=== PATIENT | male | born 1940 | race Caucasian/White ===

== ENCOUNTER 2017-04-08 12:48 | Inpatient (IN) ==
[2017-04-08 14:21] LABS: Basophils % 0.9 %; Eosinophils # 0.2 K/mcL (0.0-0.6); Eosinophils % 9.6 %; Hematocrit 21.5 % (37.5-50.1); Immature Granulocytes % 0.9 % (0-4); Immature Platelets 4.6 % (1.1-6.1); Lymphocytes # 0.4 K/mcL (0.6-4.6); Lymphocytes % 16.2 %; Mean Corpuscular HGB Conc 32.6 g/dL (31.6-35.5); Mean Corpuscular Hemoglobin 32.4 pg (28.0-33.3); Mean Corpuscular Volume 99.5 fL (83.0-100.0); Mean Platelet Volume 11.2 fL (9.4-12.4); Monocytes # 0.3 K/mcL (0.0-1.3); Monocytes % 14.9 %; Neutrophils # 1.3 K/mcL (1.6-8.9); Red Blood Count 2.16 M/mcL (4.19-5.50); Red Cell Distribution Width 14.3 % (11.5-14.5); Segmented Neutrophils % 57.5 %
[2017-04-08 14:29] LABS: Calcium 7.5 mg/dL (8.6-10.8)
[2017-04-08 14:31] LABS: Platelet Count 31 K/mcL (140-400)
--- NOTE | 2017-04-08 15:29 | Emergency Department Note ---
Disposition Clinical Impression: Generalized weakness Anemia Qualifiers: Anemia type: due to chronic kidney disease Chronic kidney disease stage: on chronic dialysis Qualified Code(s): N18.6 - End stage renal disease Disposition: Admitted As Inpatient Condition: Fair Nausea/Vomiting/Diarrhea HPI - General Chief complaint: ED Nausea/Vomiting/Diarrhea Stated complaint: vomiting, general weakness Time Seen by Provider: 04/08/17 13:17 Source: patient, EMS Mode of arrival: EMS Limitations: no limitations Nursing Notes Reviewed: Yes Vital Signs Reviewed: Yes - History of Present Illness HPI Narrative: 76-year-old male with a history renal failure on peritoneal dialysis who comes in complaining of generalized weakness and nausea vomiting. Patient has generalized weakness not able to get up and walk at this point in time. Pt Subjective Complaint: nausea, vomiting Onset (ago): day(s) Description of emesis: food contents Associated Abdominal Pain: No - Related Data Home Medications Medication Instructions Recorded Confirmed Aspirin 81 mg PO DAILY 05/19/15 04/08/17 Calcium Acetate [Phoslo] 1,334 mg PO TID 05/19/15 04/08/17 Gabapentin [Neurontin] 300 mg PO HS 05/19/15 04/08/17 Magnesium Oxide [Magnesium] 400 mg PO DAILY 05/19/15 04/08/17 Simvastatin [Zocor] 10 mg PO HS 05/19/15 04/08/17 Tamsulosin [Flomax] 0.4 mg PO BID 05/19/15 04/08/17 Omeprazole [PriLOSEC] 40 mg PO DAILY 11/20/15 04/08/17 OxyCODONE Immed Rel [Roxicodone 5 5 mg PO Q6HR 11/20/15 04/08/17 MG] Pramipexole [Mirapex] 0.25 mg PO HS 11/20/15 04/08/17 Alendronate Sodium [Fosamax] 70 mg PO QWEEK 04/08/17 04/08/17 Carvedilol [Coreg] 6.25 mg PO BID 04/08/17 04/08/17 Cholecalciferol (D-3) [Vitamin D] 1,000 unit PO DAILY 04/08/17 04/08/17 Iron Polysaccharide Complex 150 mg PO DAILY 04/08/17 04/08/17 [Ferrex 150] Multivitamin [Multi-Day Vitamins] 1 each PO DAILY 04/08/17 04/08/17 Nitroglycerin [Nitrostat] 0.4 mg SL Q5M PRN 04/08/17 04/08/17 Previous Rx's Medication Instructions Recorded Albuterol Sulfate [Albuterol 2 puff IH Q4HR #2 hfa.aer.ad 11/23/15 Inhaler] Allergies Allergy/AdvReac Type Severity Reaction Status Date / Time linezolid [From Zyvox] Allergy Weakness Verified 04/08/17 13:05 trimethoprim [From Bactrim] Allergy Weakness Verified 04/08/17 13:05 All systems ED: reviewed and negative except as stated. Constitutional: Denies: fever, chills, weakness, weight change Eyes: Denies: eye pain, eye discharge, vision change ENT ED: Denies: ear pain, throat pain, dental pain, hearing loss, epistaxis, congestion, dysphagia Cardiovascular: Denies: chest pain, palpitations, dyspnea on exertion, edema, syncope Respiratory: Denies: cough, dyspnea, wheezes, hemoptysis, stridor Gastrointestinal: Denies: abdominal pain, nausea, vomiting, diarrhea, constipation, hematemesis, melena, hematochezia Genitourinary: Denies: urgency, dysuria, frequency, hematuria Musculoskeletal: Denies: back pain, neck pain, arthralgia, myalgia Integumentary: Denies: rash, abrasion, lesions Neurological: Reports: weakness (Generalized). Denies: headache, numbness, paresthesias, confusion, abnormal gait, vertigo Psychiatric: Denies: anxiety, depression, suicidal thoughts, homicidal thoughts , auditory hallucinations, visual hallucinations Endocrine: Denies: fatigue Hematological/Lymphatic: Denies: easy bleeding, easy bruising Allergic/Immunologic: Denies: facial swelling, urticaria Past Medical History - Past Medical History Medical history: Reports: arthritis, cancer, cirrhosis, CHF, diabetes, GERD, kidney stones, liver disease, renal disease, other Surgical history: Reports: angioplasty/stent, cholecystectomy, heart valve replacement (Bioprosthetic aortic vavle replacement in 2013), other (Skin cancer excision left hand 12/2014) Psychiatric history: Reports: anxiety, depression - Social History Smoking Status: Never smoker Smokeless Tobacco Status: No Alcohol use: Reports: none Drug use: Reports: none Physical Exam - General Limitations: no limitations General appearance: alert - Head Head exam: atraumatic, normocephalic, normal inspection - Eye Eye exam: Present: normal appearance, PERRL, EOMI - ENT ENT exam: normal exam, normal oropharynx, mucous membranes moist - Neck Neck exam: Present: normal inspection, full ROM, trachea midline - Chest Chest inspection: Present: normal inspection, symmetric chest wall rise - Respiratory Respiratory exam: Present: normal lung sounds bilaterally - Cardiovascular Cardiovascular exam: Present: regular rate, normal rhythm, normal heart sounds - Abdominal Exam Abdominal exam: Present: soft, Non-Tender. Absent: tenderness, distention, guarding, rebound, rigidity - Expanded Lower Extremity Exam Neurovascular/Tendon exam: Absent: motor deficit, sensory deficit, tendon deficit Gait: not tested/not observed - Back Exam Back exam: Present: normal inspection, full ROM. Absent: tenderness - Neurological Exam Neurological exam: Present: alert, oriented X3 - Psychiatric Psychiatric exam: Present: normal affect, normal mood - Skin Skin exam: Present: warm, dry, intact, normal color Course - Reevaluation(s) Reevaluation #1: 76-year-old with a history of renal failure who comes in with generalized weakness he's noted to have a hemoglobin of 7 which is low for him. We spoke to the software development specialist to we will admit possible blood transfusion. Vital signs on initial presentation state heart rate 157 however his EKG shows a heart rate of 79. Time: 15:51 - Consultations Consultation #1: I discussed Dr. Winn, admit will see in consult. Time: 15:31 Consultation #2: Discussed with anatoly Krishnamurthy. Time: 15:50 Vital Signs Temperature 98.3 F 04/08/17 13:06 Pulse Rate 157 04/08/17 13:06 Respiratory Rate 22 04/08/17 13:06 Blood Pressure 113/67 04/08/17 13:06 O2 Sat by Pulse Oximetry 97 04/08/17 13:06 Temperature 97.7 F 04/11/17 07:37 Pulse Rate 78 04/11/17 07:37 Respiratory Rate 16 04/11/17 07:37 Blood Pressure 116/68 04/11/17 07:37 O2 Sat by Pulse Oximetry 96 04/11/17 07:37 Oxygen Delivery Oxygen Delivery Room Air Nausea/Vomiting/Diarrhea - Lab Data Lab results reviewed: Yes I reviewed the patient's lab results. Result diagrams: 04/11/17 04:58 04/11/17 04:58 Lab Results 04/08/17 04/08/17 04/08/17 Range/Units 13:57 13:57 13:57 WBC 2.3 L (4.3-11.1) K/mcL RBC 2.16 L (4.19-5.50) M/mcL Hgb 7.0 L (12.9-16.9) g/dL Hct 21.5 L (37.5-50.1) % MCV 99.5 (83.0-100.0) fL MCH 32.4 (28.0-33.3) pg MCHC 32.6 (31.6-35.5) g/dL RDW 14.3 (11.5-14.5) % Plt Count 31 L (140-400) K/mcL MPV 11.2 (9.4-12.4) fL Immature Gran % 0.9 (0-4) % Seg Neutrophils % 57.5 % Lymphocytes % 16.2 % Monocytes % 14.9 % Eosinophils % 9.6 % Basophils % 0.9 % Neutrophils # 1.3 L (1.6-8.9) K/mcL Lymphocytes # 0.4 L (0.6-4.6) K/mcL Monocytes # 0.3 (0.0-1.3) K/mcL Eosinophils # 0.2 (0.0-0.6) K/mcL Basophils # 0.0 (0.0-0.2) K/mcL Immature Plt Fraction 4.6 (1.1-6.1) % Sodium 125 L (136-145) mEq/L Potassium 5.0 H (3.5-4.5) mEq/L Chloride 87 L (98-109) mEq/L Carbon Dioxide 28 (19-29) mEq/L BUN 70 H (8-26) mg/dL Creatinine 9.36 H (0.72-1.25) mg/dL Est GFR ( Amer) 7 L (> 60) Est GFR (Non-Af Amer) 6 L (> 60) BUN/Creatinine Ratio 7 (6-26) Glucose 283 H (70-99) mg/dL Est Mean Plasma Glucose mg/dl Hemoglobin A1c ( - 5.6) % Calculated Osmolality 291 (280-300) Calcium 7.5 L (8.6-10.8) mg/dL Troponin I 0.01 (0-0.03) ng/mL Urine Color (Yellow) Urine Clarity (Clear) Urine pH (5.0-8.0) pH Units Ur Specific [place] (1.010-1.025) Urine Protein (Neg-Trace) mg/dL Urine Glucose (UA) (Normal) mg/dL Urine Ketones (Negative) mg/dL Urine Blood (Negative) Urine Nitrite (Negative) Urine Bilirubin (Negative) Urine Urobilinogen (Normal) mg/dL Ur Leukocyte Esterase (Negative) Urine Microscopic RBC (0-3) per hpf Urine Microscopic WBC (0-3) per hpf Ur Squamous Epith Cells (None-Few) per lpf Urine Bacteria (None-Few) per hpf Hyaline Casts (None-Few) per lpf Ur Culture Indicated? (NO) 04/08/17 04/08/17 Range/Units 13:57 16:22 WBC (4.3-11.1) K/mcL RBC (4.19-5.50) M/mcL Hgb (12.9-16.9) g/dL Hct (37.5-50.1) % MCV (83.0-100.0) fL MCH (28.0-33.3) pg MCHC (31.6-35.5) g/dL RDW (11.5-14.5) % Plt Count (140-400) K/mcL MPV (9.4-12.4) fL Immature Gran % (0-4) % Seg Neutrophils % % Lymphocytes % % Monocytes % % Eosinophils % % Basophils % % Neutrophils # (1.6-8.9) K/mcL Lymphocytes # (0.6-4.6) K/mcL Monocytes # (0.0-1.3) K/mcL Eosinophils # (0.0-0.6) K/mcL Basophils # (0.0-0.2) K/mcL Immature Plt Fraction (1.1-6.1) % Sodium (136-145) mEq/L Potassium (3.5-4.5) mEq/L Chloride (98-109) mEq/L Carbon Dioxide (19-29) mEq/L BUN (8-26) mg/dL Creatinine (0.72-1.25) mg/dL Est GFR ( Amer) (> 60) Est GFR (Non-Af Amer) (> 60) BUN/Creatinine Ratio (6-26) Glucose (70-99) mg/dL Est Mean Plasma Glucose 137 mg/dl Hemoglobin A1c 6.4 H ( - 5.6) % Calculated Osmolality (280-300) Calcium (8.6-10.8) mg/dL Troponin I (0-0.03) ng/mL Urine Color Yellow (Yellow) Urine Clarity Slightly Hazy (Clear) Urine pH 5.0 (5.0-8.0) pH Units Ur Specific [place] > 1.030 H (1.010-1.025) Urine Protein Trace (Neg-Trace) mg/dL Urine Glucose (UA) 500 H (Normal) mg/dL Urine Ketones Negative (Negative) mg/dL Urine Blood Negative (Negative) Urine Nitrite Negative (Negative) Urine Bilirubin Small H (Negative) Urine Urobilinogen Normal (Normal) mg/dL Ur Leukocyte Esterase Trace H (Negative) Urine Microscopic RBC 5-15 H (0-3) per hpf Urine Microscopic WBC 5-15 H (0-3) per hpf Ur Squamous Epith Cells Moderate H (None-Few) per lpf Urine Bacteria None Seen (None-Few) per hpf Hyaline Casts None Seen (None-Few) per lpf Ur Culture Indicated? YES A (NO) - Radiology Data Radiology results reviewed: Yes I reviewed the patient's radiology results. Chest X-Ray 04/08/17 13:35 IMPRESSION: No acute cardiopulmonary process. D/ / 04/08/2017 14:51:58 Yazan Toscano MD / Maria Luz Mckeon Interpreting Provider: Yazan Toscano MD Head CT 04/08/17 13:35 IMPRESSION: No acute traumatic intracranial abnormality Underlying atrophy with periventricular and scattered frontal parietal white matter disease, likely due to small-vessel ischemic change. D/ / Serafin Shaikh MD / Serafin Shaikh MD Interpreting Provider: Serafin Shaikh MD - EKG Data EKG attestation: Yes I reviewed and interpreted this EKG. EKG shows normal: sinus rhythm Rate: normal Rhythm: NSR Interpretation: no acute changes NIH Stroke Scale - Level of Consciousness LOC: Alert - LOC Questions LOC Questions: Answers both correctly - LOC Commands LOC Commands: Performs both correctly - Best Gaze Best Gaze: Normal - Visual Visual: No visual loss - Facial Palsy Facial Palsy: Normal - Motor Arms Motor Arm-Left: No drift for 10 seconds Motor Arm-Right: No drift for 10 seconds - Motor Legs Motor Leg-Left: No drift for 5 seconds Motor Leg-Right: No drift for 5 seconds - Limb Ataxia Limb Ataxia: Normal, No Ataxia - Sensory Sensory: Normal - Best Language Best Language: No aphasia - Dysarthria Dysarthria: Normal - Extinction and Inattention Extinction and Inattention: Normal - NIHSS Total Score NIHSS Total Score: 0
[2017-04-08 16:36] LABS: Bilirubin,Urine Small (Negative); Blood,Urine Negative (Negative); Color,Urine Yellow (Yellow); Glucose,Urine (UA) 500 mg/dL (Normal); Ketones,Urine Negative (Negative); Leukocyte Esterase,Urine Trace (Negative); Nitrite,Urine Negative (Negative); Protein,Urine Trace mg/dL (Neg-Trace); Specific Gravity,Urine > 1.030 (1.010-1.025); Urobilinogen,Urine Normal (Normal)
[2017-04-08 16:39] LABS: Bacteria,Urine None Seen per hpf (None-Few); Hyaline Casts,Urine None Seen per lpf (None-Few); Squamous Epithelial Cell,Urine Moderate per lpf (None-Few)
[2017-04-08 16:40] LABS: Clarity,Urine Slightly Hazy (Clear)
[2017-04-08] MEDS ORDERED: Naloxone 0.4 MG/ML INJ IVP PRN (16:50)
[2017-04-08] MEDS ORDERED: Ondansetron 4 MG/2 ML VIAL IVP PRN (16:50)
[2017-04-08] MEDS ORDERED: Acetaminophen 325 MG TABLET PO PRN (16:50)
[2017-04-08] MEDS ORDERED: Nitroglycerin 0.4 MG TAB.SUBL SL PRN (16:59)
--- NOTE | 2017-04-08 17:11 | Internal Med History&Physical ---
<Ronald Hinson T - Last Filed: 04/08/17 18:33> Date of Encounter: 04/08/17 Internal Medicine - H&P: HPI History of present illness: Mr. Daly is a 76 year old male Internal Medicine - H&P: Meds Aspirin 81 mg PO DAILY 05/19/15 [History] Calcium Acetate [Phoslo] 1,334 mg PO TID 05/19/15 [History] Gabapentin [Neurontin] 300 mg PO HS 05/19/15 [History] Magnesium Oxide [Magnesium] 400 mg PO DAILY 05/19/15 [History] Simvastatin [Zocor] 10 mg PO HS 05/19/15 [History] Tamsulosin [Flomax] 0.4 mg PO BID 05/19/15 [History] Omeprazole [PriLOSEC] 40 mg PO DAILY 11/20/15 [History] OxyCODONE Immed Rel [Roxicodone 5 MG] 5 mg PO Q6HR 11/20/15 [History] Pramipexole [Mirapex] 0.25 mg PO HS 11/20/15 [History] Albuterol Sulfate [Albuterol Inhaler] 2 puff IH Q4HR #2 hfa.aer.ad 11/23/15 [Rx] Alendronate Sodium [Fosamax] 70 mg PO QWEEK 04/08/17 [History] Carvedilol [Coreg] 6.25 mg PO BID 04/08/17 [History] Cholecalciferol (D-3) [Vitamin D] 1,000 unit PO DAILY 04/08/17 [History] Iron Polysaccharide Complex [Ferrex 150] 150 mg PO DAILY 04/08/17 [History] Multivitamin [Multi-Day Vitamins] 1 each PO DAILY 04/08/17 [History] Nitroglycerin [Nitrostat] 0.4 mg SL Q5M PRN 04/08/17 [History] Allergies linezolid [From Zyvox] Allergy (Verified 04/08/17 13:05) Weakness trimethoprim [From Bactrim] Allergy (Verified 04/08/17 13:05) Weakness All Systems PM: A 10-system review of systems was performed and is negative for pertinent findings except as documented above in the HPI. - Constitutional Vitals: Temp Pulse Resp BP Pulse Ox 98.3 F 157 18 105/49 97 04/08/17 13:06 04/08/17 13:06 04/08/17 17:39 04/08/17 17:39 04/08/17 13:06 Internal Med - H&P Results - Labs CBC & Chem 7: 04/08/17 13:57 04/08/17 13:57 - Attending Attestation I have independently seen and examined, at the bedside with family Plan of care is as discussed with KARINA Lynch, which is reflected in her documentation 76 M with ESRD on peritoneal dialysis, HCC, DM2, CHF, OA, Chronic anemia. Presented with nausea, vomiting, weakness Physical exam significant for a chronically ill-looking elderly man in no form of distress, AAOX3, no neurologic deficits, Abdomen is tense (currently has dialysate in-situ), bowel sounds present, extremities with no edema, CTAB, S1, s2 only, no m/g/r Labs and imaging reviewed: worsening anemia, Hb 7.0, Chronic leukopenia and thrombocytopenia at baseline, hyponatremia, hyperkalemia, Uremia, with BUN 70, elevated creatinine with Cr of 9.36 (baseline at 7), UA concentrated SG >1.030, dirty, Positive LE, WBC, RBC. Head CT and CXR unremarkable EKG : NSR, A/P: *Dehydration, Hyponatremia, Suspected UTI, Hyperkalemia, Acute on chronic anemia, chronic thrombocytopenia IVF-gentle hydration, adjust with dialysate, send urine and peritoneal fluid culture, Send FOBT, transfuse 1 RBC, Consult nephrology. IV Ceftriaxone for suspected UTI, follow cultures Rest of details as in KARINA lynch's documentation Patient is full code <Nelsy Lynch M - Last Filed: 04/08/17 22:37> Date of Encounter: 04/08/17 Time of Encounter: 17:06 Assessment and Plan (1) Generalized weakness Current visit: Yes Status: Acute Patient reporting weakness, fatigue increasing over last 2 weeks. He's had poor appetite during that time and the last 2 days reports some nausea and vomiting. Labs indicate he is dehydrated. On exam, dry mucous membranes, no edema. 500mL bolus, 0.9NS at 100mL/hr. (2) Anemia Current visit: Yes Status: Acute Patient with chronic anemia associated with ESRD, today's Hgb below his baseline at 7.0. Type and screen Transfuse 1u Packed RBCs check FOB Check CBC daily. Qualifiers: Anemia type: due to chronic kidney disease Chronic kidney disease stage: on chronic dialysis Qualified Code(s): N18.6 - End stage renal disease; D63.1 - Anemia in chronic kidney disease; Z99.2 - Dependence on renal dialysis (3) Hyponatremia Current visit: Yes Status: Acute Sodium of 125. Appears to be hypovolemic hyponatremia as patient appears dehydrated. 500mL bolus plus 0.9NS at 100mL/hr Nephrology consulted, spoke with Dr. Winn who will see patient. (4) Type 2 diabetes mellitus Current visit: Yes Status: Acute check Hgb A1c check blood sugars ACHS Sliding scale correction dose ACHS hypoglycemic protocol. Qualifiers: Diabetes mellitus complication status: with unspecified complications Diabetes mellitus terminal gauger supervisor insulin use: without terminal gauger supervisor use Qualified Code( s): E11.8 - Type 2 diabetes mellitus with unspecified complications (5) Hyperkalemia Current visit: Yes Status: Acute Potassium of 5.0 in patient with ESRD on peritoneal dialysis. Patient has diasylate dwelling and we are giving fluids for dehydration. Recheck chemistry daily. (6) ESRD (end stage renal disease) on dialysis Current visit: Yes Status: Chronic Patient with ESRD on Peritoneal dialysis, and reports he has diasylate dwelling now. BUN and creatinine are elevated above patient's baseline. We are giving fluids. Nephrology consulted, spoke with Dr. Winn who will see patient and manage dialysis. (7) Thrombocytopenia Current visit: Yes Status: Chronic (8) UTI (urinary tract infection) Current visit: Yes Status: Acute Urinalysis concerning for possible infection. Will treat with rocephin. Await culture results. Qualifiers: Urinary tract infection type: acute cystitis Hematuria presence: with hematuria Qualified Code(s): N30.01 - Acute cystitis with hematuria (9) DVT prophylaxis Current visit: Yes Status: Acute sequential compression devices. Plt count of 31, pharmacologic prophylaxis contraindicated. Internal Medicine - H&P: HPI Chief complaint: nausea, vomiting, weakness Admitted From: Emergency Dept Plans for Post Hospital Care: Home History of present illness: Mr. Daly is a 76 year old male with hypertension, hyperlipidemia, type 2 diabetes, cirrhosis and hepatocellular carcinoma in remission, chronic anemia, end-stage renal disease on peritoneal dialysis, coronary artery disease status post stent LAD presented to the emergency department today with complaints of nausea, vomiting, and weakness. Patient's daughter reports that approximately 2 weeks ago patient was given some Benadryl for an allergic reaction and had been drowsy and sleeping all the time ever since. She says he does not stay awake to eat, and she thinks he might be dehydrated. Patient had some nausea and vomiting the last couple of days. He is normally able to walk around, but he is so weak the last couple of days he has not been up and around. Patient reports some lightheadedness. He denies headache, chest pain, palpitations, shortness of breath. He reports a dry cough. He denies any abdominal pain, diarrhea, or constipation. He denies fever, chills or sweats. Evaluation in the emergency department revealed hyponatremia with sodium of 125, hyperkalemia with potassium of 5.0, BUN and creatinine elevated above patient's baseline with BUN of 70 and creatinine of 9.36. He was hyperglycemic with blood sugar of 283. Hemoglobin was 7.0 his previous baseline in the eights. Platelets were 31. EKG showed heart rate of 79 in sinus rhythm. Chest x-ray showed no acute cardiopulmonary process. Head CT showed no acute intracranial abnormality. On exam, patient is drowsy but arousable, oriented and responds appropriately to questions. He is pale, mucous membranes dry. Heart has regular rate and rhythm with systolic murmur. Lungs are clear bilaterally to auscultation. Abdomen is distended, nontender, with positive bowel sounds. Patient reports that he has diasylate dwelling currently. Past Med Surg Social Fam HX - Past Medical History Medical history: arthritis, cancer (HCC s/p chemo in remission), cirrhosis, CHF , coronary artery disease, diabetes, GERD, kidney stones, liver disease ( cirrhosis), renal disease, other Psychiatric history: anxiety, depression - Past Surgical History Surgical History: angioplasty/stent, cholecystectomy, heart valve replacement ( Bioprosthetic aortic vavle replacement in 2013), other (Skin cancer excision left hand 12/2014) - Social History Smoking Status: Never smoker Smokeless Tobacco Status: No Alcohol use: none Drug use: none - Family History Mother Adopted: No Living Status: Age at : 59 Cause of : CVA Hx Family Cardiac Disorders: Yes (hypertension) Hx Family Endocrine Disorder: Yes (diabetes) Father Living Status: Age at : 63 Cause of : [place] Hx Family Cardiac Disorders: Yes (hypertension, [place]) All Systems PM: A 10-system review of systems was performed and is negative for pertinent findings except as documented above in the HPI. - Constitutional Constitutional: fatigue, lethargy, weakness, no chills, no fever(s), no night sweats - EENT Eyes: no change in vision, no discharge, no pain, no photophobia Ears: no ear discharge, no ear pain, no tinnitus Nose, mouth and throat: no dysphagia, no nasal discharge, no neck pain, no sore throat - Cardiovascular Cardiovascular ROS IM: lightheadedness, no chest pain, no diaphoresis, no dyspnea, no palpitations, no syncope - Respiratory Respiratory: no cough, no dyspnea, no wheezing, no excessive phlegm production - Gastrointestinal Gastrointestinal: nausea, vomiting, no abdominal pain, no diarrhea, no hematemesis, no hematochezia, no melena - Musculoskeletal Musculoskeletal ROS IM: no numbness, no tingling - Integumentary Integumentary IM: no rash, no unusual bruising - Neurological Neurological ROS: no confusion, no convulsions, no focal weakness, no numbness, no tingling, no tremor(s) - Hematologic/Lymphatic Hematologic/Lymphatic: easy bruising - Constitutional Vitals: Temp Pulse Resp BP Pulse Ox 98.3 F 157 22 113/67 97 04/08/17 13:06 04/08/17 13:06 04/08/17 13:06 04/08/17 13:06 04/08/17 13:06 General appearance: Present: A&O X 3, pleasant, no acute distress - Head Head exam: Present: atraumatic, normocephalic - Eye Eye exam: Present: PERRL, conjuntiva pink, sclera anicteric Pupils: Present: PERRL Additional comments: pale conjunctiva - ENT ENT exam: Present: mucous membranes dry - Neck Neck exam general surgery: Present: supple, trachea midline. Absent: lymphadenopathy - Respiratory Respiratory exam: Present: CTAB. Absent: accessory muscle use, rales, rhonchi, wheezes - Cardiovascular Cardiovascular exam: Present: RRR, +S1, +S2, systolic murmur. Absent: diastolic murmur, gallop, rubs - GI/Abdominal GI/Abdominal exam: Present: distended, normal bowel sounds, no peritoneal signs. Absent: tenderness - Extremities Exam Extremities exam: Present: warm, radial pulses palpable and symetrical. Absent : calf tenderness, cyanotic, pedal edema - Neurological Exam Neurological exam: Present: CN II-XII intact, oriented X3, no focal deficits. Absent: facial droop, speech deficit - Skin Skin exam: Present: dry, intact Internal Med - H&P Results - Labs CBC & Chem 7: 04/08/17 13:57 04/08/17 13:57 Labs: All Lab Results (24 Hours) 04/08/17 04/08/17 04/08/17 Range/Units 13:57 13:57 13:57 WBC 2.3 L (4.3-11.1) K/mcL RBC 2.16 L (4.19-5.50) M/mcL Hgb 7.0 L (12.9-16.9) g/dL Hct 21.5 L (37.5-50.1) % MCV 99.5 (83.0-100.0) fL MCH 32.4 (28.0-33.3) pg MCHC 32.6 (31.6-35.5) g/dL RDW 14.3 (11.5-14.5) % Plt Count 31 L (140-400) K/mcL MPV 11.2 (9.4-12.4) fL Immature Gran % 0.9 (0-4) % Seg Neutrophils % 57.5 % Lymphocytes % 16.2 % Monocytes % 14.9 % Eosinophils % 9.6 % Basophils % 0.9 % Neutrophils # 1.3 L (1.6-8.9) K/mcL Lymphocytes # 0.4 L (0.6-4.6) K/mcL Monocytes # 0.3 (0.0-1.3) K/mcL Eosinophils # 0.2 (0.0-0.6) K/mcL Basophils # 0.0 (0.0-0.2) K/mcL Immature Plt Fraction 4.6 (1.1-6.1) % Sodium 125 L (136-145) mEq/L Potassium 5.0 H (3.5-4.5) mEq/L Chloride 87 L (98-109) mEq/L Carbon Dioxide 28 (19-29) mEq/L BUN 70 H (8-26) mg/dL Creatinine 9.36 H (0.72-1.25) mg/dL Est GFR ( Amer) 7 L (> 60) Est GFR (Non-Af Amer) 6 L (> 60) BUN/Creatinine Ratio 7 (6-26) Glucose 283 H (70-99) mg/dL Calculated Osmolality 291 (280-300) Calcium 7.5 L (8.6-10.8) mg/dL Troponin I 0.01 (0-0.03) ng/mL Urine Color (Yellow) Urine Clarity (Clear) Urine pH (5.0-8.0) pH Units Ur Specific [place] (1.010-1.025) Urine Protein (Neg-Trace) mg/dL Urine Glucose (UA) (Normal) mg/dL Urine Ketones (Negative) mg/dL Urine Blood (Negative) Urine Nitrite (Negative) Urine Bilirubin (Negative) Urine Urobilinogen (Normal) mg/dL Ur Leukocyte Esterase (Negative) Urine Microscopic RBC (0-3) per hpf Urine Microscopic WBC (0-3) per hpf Ur Squamous Epith Cells (None-Few) per lpf Urine Bacteria (None-Few) per hpf Hyaline Casts (None-Few) per lpf Ur Culture Indicated? (NO) 04/08/17 Range/Units 16:22 WBC (4.3-11.1) K/mcL RBC (4.19-5.50) M/mcL Hgb (12.9-16.9) g/dL Hct (37.5-50.1) % MCV (83.0-100.0) fL MCH (28.0-33.3) pg MCHC (31.6-35.5) g/dL RDW (11.5-14.5) % Plt Count (140-400) K/mcL MPV (9.4-12.4) fL Immature Gran % (0-4) % Seg Neutrophils % % Lymphocytes % % Monocytes % % Eosinophils % % Basophils % % Neutrophils # (1.6-8.9) K/mcL Lymphocytes # (0.6-4.6) K/mcL Monocytes # (0.0-1.3) K/mcL Eosinophils # (0.0-0.6) K/mcL Basophils # (0.0-0.2) K/mcL Immature Plt Fraction (1.1-6.1) % Sodium (136-145) mEq/L Potassium (3.5-4.5) mEq/L Chloride (98-109) mEq/L Carbon Dioxide (19-29) mEq/L BUN (8-26) mg/dL Creatinine (0.72-1.25) mg/dL Est GFR ( Amer) (> 60) Est GFR (Non-Af Amer) (> 60) BUN/Creatinine Ratio (6-26) Glucose (70-99) mg/dL Calculated Osmolality (280-300) Calcium (8.6-10.8) mg/dL Troponin I (0-0.03) ng/mL Urine Color Yellow (Yellow) Urine Clarity Slightly Hazy (Clear) Urine pH 5.0 (5.0-8.0) pH Units Ur Specific [place] > 1.030 H (1.010-1.025) Urine Protein Trace (Neg-Trace) mg/dL Urine Glucose (UA) 500 H (Normal) mg/dL Urine Ketones Negative (Negative) mg/dL Urine Blood Negative (Negative) Urine Nitrite Negative (Negative) Urine Bilirubin Small H (Negative) Urine Urobilinogen Normal (Normal) mg/dL Ur Leukocyte Esterase Trace H (Negative) Urine Microscopic RBC 5-15 H (0-3) per hpf Urine Microscopic WBC 5-15 H (0-3) per hpf Ur Squamous Epith Cells Moderate H (None-Few) per lpf Urine Bacteria None Seen (None-Few) per hpf Hyaline Casts None Seen (None-Few) per lpf Ur Culture Indicated? YES A (NO) - Diagnostic Studies Chest x-ray Additional comments: Chest X-Ray 04/08/17 13:35 IMPRESSION: No acute cardiopulmonary process. D/ / 04/08/2017 14:51:58 Yazan Toscano MD / Maria Luz Mckeon Interpreting Provider: Yazan Toscano MD CT scan - head Additional comments: Head CT 04/08/17 13:35 IMPRESSION: No acute traumatic intracranial abnormality Underlying atrophy with periventricular and scattered frontal parietal white matter disease, likely due to small-vessel ischemic change. D/ / Serafin Shaikh MD / Serafin Shaikh MD Interpreting Provider: Serafin Shaikh MD
[2017-04-08] MEDS ORDERED: Dextrose Gel 15 GM PO PRN ×2 (17:15)
[2017-04-08] MEDS ORDERED: D5% in Water 1,000 ML IVC PRN (17:15)
[2017-04-08] MEDS ORDERED: *HR* Dextrose 50 % in Water (Syg) 50 ML SYRINGE IVP PRN (17:15)
[2017-04-08 17:45] LABS: Hemoglobin A1C 6.4 %
[2017-04-08] MEDS ORDERED: 0.9 % Sodium Chloride 500 ML IVC ONE (17:54)
[2017-04-08] MEDS: 0.9 % Sodium Chloride 1,000 ML IVC SCH (19:59)
[2017-04-08] MEDS: Calcium Acetate 667 MG CAPSULE PO SCH (20:37)
[2017-04-08] MEDS: Gabapentin 300 MG CAPSULE PO SCH (20:38)
[2017-04-08] MEDS ORDERED: *HR* OxyCODONE Immed Rel 5 MG TABLET PO ONE (20:58)
[2017-04-08] MEDS ORDERED: Insulin LISPRO 300 UNITS/3 ML VIAL SQ SCH (21:00)
[2017-04-08] MEDS ORDERED: 0.9 % Sodium Chloride 250 ML ONE (23:23)
[2017-04-09] MEDS: Perit. Dialysis with Dex 1.5 % 2,000 ML PERITONEAL SCH ×4 (03:10→20:15)
[2017-04-09 05:21] LABS: RBC,Peritoneal Fluid < 0.002 M/mcL
[2017-04-09 05:30] LABS: Appearance of Peritoneal Fl CLEAR (Clear)
[2017-04-09 06:06] LABS: Basophils % 0.9 %; Eosinophils # 0.3 K/mcL (0.0-0.6); Eosinophils % 14.1 %; Hemoglobin 7.3 g/dL (12.9-16.9); Immature Granulocytes % 1.3 % (0-4); Immature Platelets 3.4 % (1.1-6.1); Lymphocytes # 0.5 K/mcL (0.6-4.6); Lymphocytes % 22.9 %; Mean Corpuscular HGB Conc 33.2 g/dL (31.6-35.5); Mean Corpuscular Hemoglobin 32.6 pg (28.0-33.3); Mean Corpuscular Volume 98.2 fL (83.0-100.0); Mean Platelet Volume 10.4 fL (9.4-12.4); Monocytes # 0.4 K/mcL (0.0-1.3); Monocytes % 15.9 %; Red Blood Count 2.24 M/mcL (4.19-5.50); Red Cell Distribution Width 14.9 % (11.5-14.5); Segmented Neutrophils % 44.9 %
[2017-04-09 06:09] LABS: Platelet Count 29 K/mcL (140-400)
[2017-04-09 06:22] LABS: Albumin 2.2 g/dL (3.5-5.0); Albumin/Globulin Ratio 0.6 (1.1-2.2); Bilirubin,Total 0.7 mg/dL (0.2-1.2); Calcium 7.1 mg/dL (8.6-10.8); Globulin 3.4 g/dL (2.4-3.5); Magnesium 3.5 mg/dL (1.6-2.6); Phosphorous 5.6 mg/dL (2.3-4.7); Potassium 4.8 mEq/L (3.5-4.5); Total Protein 5.6 g/dL (6.0-8.3)
[2017-04-09 06:54] LABS: Platelet Estimate Decreased (Normal)
[2017-04-09] MEDS ORDERED: Insulin LISPRO 300 UNITS/3 ML VIAL SQ SCH ×2 (07:30→21:00)
--- NOTE | 2017-04-09 08:17 | Nephrology Consult Note ---
Date of Encounter: 04/09/17 Time of Encounter: 08:00 Assessment and Plan (1) ESRD (end stage renal disease) Current Visit: No Status: Chronic PD fluid is pending but thus far the reported total nucleated cells (i.e., PMN) are less than 100, so I do not suspect Peritonitis. Continue PD for clearance, will use only 1.5% dextrose for now since he most likely volume depleted (contributing to the hyponatremia) Continue the IVF. His hx of liver disease may also be contributing to the hyponatremia. Liver disease/Ca can led to splenic sequestration and thrombocytopenia. However he is very pancytopenic. Consider consulting Hem/Onc. Hypoalbuminemia and hypocalcemia. Correcting for the hypoalbuminemia the hypocalcemia is minimal, but will add an ionized Ca for the AM. Possible UTI, so reasonable to cont Abx for now. Hyperphos: likely d/t his ESRD. Renal diet. Thank you for consulting the [facility] group. Will follow with you. (2) Hyponatremia Current Visit: Yes Status: Acute (3) Pancytopenia Current Visit: Yes Status: Acute (4) Hypoalbuminemia Current Visit: Yes Status: Acute (5) Hypocalcemia Current Visit: Yes Status: Acute (6) Hyperphosphatemia Current Visit: No Status: Acute (7) Secondary hyperparathyroidism of renal origin Current Visit: Yes Status: Chronic History of Present Illness - Reason for Consult Consult date: 04/08/17 end stage renal disease Requesting physician: Nelsy Lynch - Chief Complaint Generalized weakness; Hx of ESRD on PD - History of Present Illness Serafin Daly is a very pleasant 76 y/o WM with a pmh of ESRD on PD cycler, liver cirrhosis, chronic anemia and et al who presented with fatigue and poor oral intake. His daughter was present and provided most of the hx. His primary rn cardiovascular is Dr. Huntley. He was recently changed from just a nocturnal cycler but also to Extraneal and with daytime dwells. He was having increase itching and was recently placed on routine Benadryl as per the daughter by the dialysis unit about 1-2 weeks ago. Since then he has been sleeping more and more. Also associated with poor oral intake and some N/V but no abd pain, F/C or exudates from the PD catheter. No recent peritonitis. Yesterday afternoon I had recommended to the ER to have the PD fluid undergo analysis with Cell count and diff but it was not drawn till about midnight when I spoke to the floor RN. Past Med Surg Social Fam HX - Past Medical History Medical history: arthritis, cancer (HCC s/p chemo in remission), cirrhosis, CHF , coronary artery disease, diabetes, GERD, kidney stones, liver disease ( cirrhosis), renal disease, other Psychiatric history: anxiety, depression - Past Surgical History Surgical History: angioplasty/stent, cholecystectomy, heart valve replacement ( Bioprosthetic aortic vavle replacement in 2013), other (Skin cancer excision left hand 12/2014) - Social History Smoking Status: Never smoker Smokeless Tobacco Status: No Alcohol use: none Drug use: none - Family History Mother Adopted: No Living Status: Age at : 59 Cause of : CVA Hx Family Cardiac Disorders: Yes (hypertension) Hx Family Endocrine Disorder: Yes (diabetes) Father Living Status: Age at : 63 Cause of : [place] Hx Family Cardiac Disorders: Yes (hypertension, [place]) Medications and Allergies Aspirin 81 mg PO DAILY 05/19/15 [History] Calcium Acetate [Phoslo] 1,334 mg PO TID 05/19/15 [History] Gabapentin [Neurontin] 300 mg PO HS 05/19/15 [History] Magnesium Oxide [Magnesium] 400 mg PO DAILY 05/19/15 [History] Simvastatin [Zocor] 10 mg PO HS 05/19/15 [History] Tamsulosin [Flomax] 0.4 mg PO BID 05/19/15 [History] Omeprazole [PriLOSEC] 40 mg PO DAILY 11/20/15 [History] OxyCODONE Immed Rel [Roxicodone 5 MG] 5 mg PO Q6HR 11/20/15 [History] Pramipexole [Mirapex] 0.25 mg PO HS 11/20/15 [History] Albuterol Sulfate [Albuterol Inhaler] 2 puff IH Q4HR #2 hfa.aer.ad 11/23/15 [Rx] Alendronate Sodium [Fosamax] 70 mg PO QWEEK 04/08/17 [History] Carvedilol [Coreg] 6.25 mg PO BID 04/08/17 [History] Cholecalciferol (D-3) [Vitamin D] 1,000 unit PO DAILY 04/08/17 [History] Iron Polysaccharide Complex [Ferrex 150] 150 mg PO DAILY 04/08/17 [History] Multivitamin [Multi-Day Vitamins] 1 each PO DAILY 04/08/17 [History] Nitroglycerin [Nitrostat] 0.4 mg SL Q5M PRN 04/08/17 [History] Allergies linezolid [From Zyvox] Allergy (Verified 04/08/17 13:05) Weakness trimethoprim [From Bactrim] Allergy (Verified 04/08/17 13:05) Weakness Review of Systems All Systems: reviewed and no additional remarkable complaints except as stated Exam - Vital Signs Vital signs: Initial Vital Signs Temp Pulse Resp BP Pulse Ox 98.3 F 157 22 113/67 97 04/08/17 13:06 04/08/17 13:06 04/08/17 13:06 04/08/17 13:06 04/08/17 13:06 Vital Signs - Last 8 Hours Temp Pulse Resp BP Pulse Ox 04/09/17 07:13 97.6 F 74 15 100/55 95 04/09/17 05:20 97.5 F L 78 16 98/62 94 04/09/17 04:40 97.7 F 76 16 97/58 96 04/09/17 03:30 18 98 04/09/17 03:08 98.0 F 76 16 92/50 96 Intake and Output 04/08/17 04/09/17 04/09/17 23:59 07:59 15:59 Intake Total 408 / 408 600 / 600 Balance 408 / 408 600 / 600 Intake: IV Fluids 408 / 408 250 / 250 0.9 % Sodium Chloride 250 250 / 250 ML As .ROUTE .[facility] Rx#:[id number] 0.9 % Sodium Chloride 1, 308 / 308 0 / 0 000 ML @ 100 mls/hr IVC . Q10H [facility] Rx#:[id number] Rocephin 1,000 MG In 100 / 100 Dextrose 5% (Minibag+) 100 ML 100 ML @ 200 mls/ hr IVPB Q24H [facility] Rx#: [id number] Oral 0 / 0 0 / 0 Blood Product 0 / 0 350 / 350 Rbcs Leuko Poor As-1 0 / 0 350 / 350 Unit [id number] Other: Total Peritoneal Dialysis -1140 Output Weight 94.755 kg 95.254 kg Blood Glucose* 253 221 Patient Weight 04/09/17 23:59 Weight 95.254 kg - General Appearance General appearance: well-developed, appears started age, chronically ill, fatigue, frail EENT: ATNC, PERRL, mucous membranes dry Neck: supple Respiratory: clear Cardiology: no edema, regular rate, regular rhythm, normal S1, normal S2 - Dialysis Access Additional Comments: PD catheter was without pain or erythema or exudates. Gastrointestinal: normoactive bowel sounds, no guarding, obese Additional Comments: +Fluid wave consistent with PD fluid dwell in place Integumentary: warm and dry Neurologic: no focal deficit, no asterixis, alert and oriented x3 Musculoskeletal: no deformities, no cyanosis Psychiatric: mood/affect appropriate, cooperative Results - Lab Results 04/09/17 05:27 04/09/17 05:27 Most recent lab results Calcium 7.1 mg/dL (8.6-10.8) L 04/09/17 05:27 Phosphorus 5.6 mg/dL (2.3-4.7) H 04/09/17 05:27 Magnesium 3.5 mg/dL (1.6-2.6) H 04/09/17 05:27 I reviewed the above auto generated dated. I reviewed progress notes, labs, meds , vitals, and imaging. Consult Discharge Plan - Plan Referrals: Oseas Graham MD [Primary Care Provider] -
[2017-04-09] MEDS: Calcium Acetate 667 MG CAPSULE PO SCH ×3 (08:33→20:32)
[2017-04-09] MEDS: Iron Polysaccharide Complex 150 MG CAPSULE PO SCH (08:33)
[2017-04-09] MEDS: Magnesium Oxide 400 MG TABLET PO SCH (08:33)
[2017-04-09] MEDS ORDERED: *HR* OxyCODONE Immed Rel 5 MG TABLET PO PRN (08:55)
--- NOTE | 2017-04-09 09:02 | Internal Med Progress Note ---
Date of Encounter: 04/09/17 Time of Encounter: 08:57 - Assessment and plan (1) Hyperkalemia Current Visit: Yes Status: Acute Assessment and plan: Likely related to acute worsening of renal function. Improved to 4.8 today. Expect to correct with continued dialysis. Telemetry monitoring. (2) Hyponatremia Current Visit: Yes Status: Acute Assessment and plan: Serum sodium noted to be around 135 on lab work done 2 months ago. This is likely related to hypovolemia/dehydration. Patient presented with generalized weakness and lethargy subsequent to Benadryl and excessive sleepiness, poor oral intake at home. Continue IV hydration and monitor serum sodium. Follow-up nephrology recommendations. (3) UTI (urinary tract infection) Current Visit: Yes Status: Ruled-out Assessment and plan: Urinalysis was suggestive of UTI, however urine culture shows no bacterial growth. We will hold off on antibiotics at this time. Qualifiers: Urinary tract infection type: acute cystitis Hematuria presence: without hematuria Qualified Code(s): N30.00 - Acute cystitis without hematuria (4) Pancytopenia Current Visit: Yes Status: Chronic Assessment and plan: Noted to have chronic leukopenia and thrombocytopenia along with acute anemia. Received 1 unit PRBC transfusion with no significant improvement in hemoglobin, noted to be 7 today. We will transfuse another unit of PRBC. Patient may benefit from outpatient hematology follow-up for chronic pancytopenia, which could be related to underlying hepatocellular carcinoma and cirrhosis. No active bleeding noted at this time. (5) Liver cirrhosis Current Visit: Yes Status: Chronic Qualifiers: Hepatic cirrhosis type: unspecified hepatic cirrhosis Ascites presence: with ascites Qualified Code(s): K74.60 - Unspecified cirrhosis of liver (6) Liver cancer Current Visit: Yes Status: Chronic Assessment and plan: Currently in remission per daughter. Qualifiers: Liver malignancy type: hepatocellular carcinoma Qualified Code(s): C22.0 - Liver cell carcinoma (7) Diabetes Current Visit: Yes Status: Chronic Assessment and plan: Blood sugars noted to be uncontrolled. We will start basal insulin and increase sliding scale insulin. Hemoglobin A1c noted to be 6.4%, which is likely not accurate given his significant anemia. Continue Accu-Chek blood glucose monitoring. Diabetic diet. Qualifiers: Diabetes mellitus type: type 2 Diabetes mellitus complication status: with kidney complications Diabetes mellitus complication detail: with chronic kidney disease Diabetes mellitus long term acute care registered nurse insulin use: without long term acute care registered nurse use Chronic kidney disease stage: on chronic dialysis Qualified Code(s): E11.22 - Type 2 diabetes mellitus with diabetic chronic kidney disease; N18.6 - End stage renal disease; Z99.2 - Dependence on renal dialysis (8) Depression Current Visit: Yes Status: Chronic Qualifiers: Depression Type: unspecified Qualified Code(s): F32.9 - Major depressive disorder, single episode, unspecified (9) Secondary hyperparathyroidism of renal origin Current Visit: Yes Status: Chronic Assessment and plan: Continue phosphate binders. (10) ESRD (end stage renal disease) on dialysis Current Visit: Yes Status: Chronic Assessment and plan: Noted to be on home peritoneal dialysis. Nephrology consulted, patient will receive ongoing dialysis while in the hospital. We will follow nephrology recommendations for electrolyte abnormalities, acute worsening of renal failure. Continue multivitamins and phosphate binders. Peritoneal fluid culture negative. - Subjective Interval history: Feels better; still has generalized weakness and pallor but improved nausea, emesis, abdominal pain; has abdominal distension; - Constitutional Vitals: Temp Pulse Resp BP Pulse Ox 97.6 F 74 15 100/55 95 04/09/17 07:13 04/09/17 07:13 04/09/17 07:13 04/09/17 07:13 04/09/17 07:13 General appearance: Present: A&O X 3, answers questions appropriately - Respiratory Respiratory exam: Present: CTAB. Absent: accessory muscle use, rales, rhonchi, wheezes - Cardiovascular Cardiovascular exam: Present: RRR, +S1, +S2. Absent: diastolic murmur, gallop, rubs, systolic murmur - GI/Abdominal GI/Abdominal exam: Present: distended, firm, normal bowel sounds, soft (PD catheter in place), no peritoneal signs. Absent: tenderness - Extremities Exam Extremities exam: Present: full ROM, warm, radial pulses palpable and symetrical. Absent: calf tenderness, cyanotic, pedal edema - Neurological Exam Neurological exam: Present: CN II-XII intact, oriented X3, no focal deficits, strengths equal and symetr throughout (symmetrically weak). Absent: pronater drift, facial droop, speech deficit Internal Medicine: Result - Labs CBC & Chem 7: 04/09/17 05:27 04/09/17 05:27 Labs: Short CBC 04/09/17 Range/Units 05:27 WBC 2.3 L (4.3-11.1) K/mcL Hgb 7.3 L (12.9-16.9) g/dL Hct 22.0 L (37.5-50.1) % Plt Count 29 L* (140-400) K/mcL Neutrophils # 1.0 L (1.6-8.9) K/mcL BMP 04/09/17 05:27 Sodium 125 L Potassium 4.8 H Chloride 89 L Carbon Dioxide 24 BUN 76 H Creatinine 10.01 H Glucose 197 H Calcium 7.1 L Liver Function 04/09/17 Range/Units 05:27 Total Bilirubin 0.7 (0.2-1.2) mg/dL AST 14 (5-34) Units/L ALT 12 (0-55) Units/L Alkaline Phosphatase 164 H (38-126) Units/L Albumin 2.2 L (3.5-5.0) g/dL Consult Discharge Plan - Plan Referrals: Oseas Graham MD [Primary Care Provider] -
[2017-04-09] MEDS: Insulin DETEMIR 100 UNIT/ML X5UNITS SQ SCH ×3 (09:10→21:22)
[2017-04-09] MEDS ORDERED: 0.9 % Sodium Chloride 250 ML ONE (10:48)
[2017-04-09] MEDS: *HR* OxyCODONE Immed Rel 5 MG TABLET PO SCH ×3 (12:20→23:57)
[2017-04-09] MEDS: Insulin LISPRO 300 UNITS/3 ML VIAL SQ SCH ×2 (12:21→17:07)
[2017-04-09] MEDS: 0.9 % Sodium Chloride 1,000 ML IVC SCH ×3 (12:23→23:58)
[2017-04-09] MEDS: Gabapentin 300 MG CAPSULE PO SCH (20:33)
[2017-04-10] MEDS: Perit. Dialysis with Dex 1.5 % 2,000 ML PERITONEAL SCH ×4 (02:03→20:17)
[2017-04-10 04:09] LABS: Basophils % 0.6 %; Immature Granulocytes % 1.2 % (0-4); Mean Platelet Volume 10.8 fL (9.4-12.4)
[2017-04-10 04:10] LABS: Eosinophils # 0.2 K/mcL (0.0-0.6); Eosinophils % 10.7 %; Hematocrit 22.5 % (37.5-50.1); Hemoglobin 7.4 g/dL (12.9-16.9); Lymphocytes # 0.4 K/mcL (0.6-4.6); Lymphocytes % 20.7 %; Mean Corpuscular HGB Conc 32.9 g/dL (31.6-35.5); Mean Corpuscular Hemoglobin 31.5 pg (28.0-33.3); Mean Corpuscular Volume 95.7 fL (83.0-100.0); Monocytes # 0.3 K/mcL (0.0-1.3); Monocytes % 15.4 %; Neutrophils # 0.9 K/mcL (1.6-8.9); Red Blood Count 2.35 M/mcL (4.19-5.50); Red Cell Distribution Width 14.7 % (11.5-14.5); Segmented Neutrophils % 51.4 %
[2017-04-10 04:13] LABS: Platelet Count 23 K/mcL (140-400)
[2017-04-10 04:22] LABS: Albumin 2.1 g/dL (3.5-5.0); Calcium 6.9 mg/dL (8.6-10.8); Phosphorous 4.5 mg/dL (2.3-4.7); Potassium 4.5 mEq/L (3.5-4.5)
[2017-04-10 04:44] LABS: Platelet Estimate Marked Decrease (Normal)
[2017-04-10] MEDS: *HR* OxyCODONE Immed Rel 5 MG TABLET PO SCH ×3 (05:26→16:21)
[2017-04-10] MEDS: Calcium Acetate 667 MG CAPSULE PO SCH ×4 (07:44→16:21)
[2017-04-10] MEDS: Magnesium Oxide 400 MG TABLET PO SCH (07:44)
[2017-04-10] MEDS: Iron Polysaccharide Complex 150 MG CAPSULE PO SCH (07:44)
[2017-04-10] MEDS: Insulin LISPRO 300 UNITS/3 ML VIAL SQ SCH ×4 (07:46→20:54)
--- NOTE | 2017-04-10 08:05 | Nephrology Progress Note ---
Date of Encounter: 04/10/17 Time of Encounter: 09:45 - Assessment and Plan (1) ESRD (end stage renal disease) Current Visit: No Status: Chronic Continue PD 1.5% dextrose q6hr. PD fluids were not consistent with Peritonitis. Gentamicin cream to be applied as per routine to the exit site with PD fluid exchanges Hyponatremia: very slowly correcting. I discussed the R/B/I and SE profile of Tolvaptan with the pt and his daughter, will trial a one time dose. Will stop the IVF today since he now has edema in the LE. He might have crossed over into the hypervolemic category of hyponatremia. Hyperkalemia, correcting with PD Hypoalbuminemia: Svetlana turner recommended. Pancytoenia. Arsenio provide an ALVARADO while here but it's unclear to me why he is so pancytopenic, with a very severely low WBC. Consider consulting Heme/Onc. (2) Hyponatremia Current Visit: Yes Status: Acute (3) Pancytopenia Current Visit: Yes Status: Acute (4) Hypoalbuminemia Current Visit: Yes Status: Acute (5) Hypocalcemia Current Visit: Yes Status: Acute (6) Hyperphosphatemia Current Visit: No Status: Acute (7) Secondary hyperparathyroidism of renal origin Current Visit: Yes Status: Chronic Subjective Principal diagnosis: ESRD, Hyponatremia, Interval history: Pt was seen/examined earlier today. He did not affirm abd pain, exudates or erythema related symptoms with regard to the PD exchanges. He was by himself in the exam room on the bed. Objective - Vital Signs Vital signs: Vital Signs Temp Pulse Resp BP Pulse Ox 04/10/17 06:59 98.2 F 78 17 100/59 97 04/10/17 04:39 97.7 F 79 16 97/60 95 04/10/17 04:06 18 95 04/10/17 00:27 97.6 F 87 16 97/57 94 04/09/17 23:31 18 95 04/09/17 20:24 98 F 85 15 103/59 96 04/09/17 19:58 18 98 04/09/17 15:57 98.0 F 82 17 128/61 97 04/09/17 15:49 16 95 04/09/17 13:51 98.0 F 82 18 95/59 94 04/09/17 11:42 97.6 F 81 15 92/44 95 04/09/17 11:31 20 97 04/09/17 10:54 98.2 F 78 14 95/56 95 04/09/17 10:51 97.9 F 78 16 93/56 Intake and Output 04/09/17 04/10/17 04/10/17 23:59 07:59 15:59 Intake Total 1200 / 1200 Balance 1200 / 1200 Intake: IV Fluids 1000 / 1000 0.9 % Sodium Chloride 1, 1000 / 1000 000 ML @ 100 mls/hr IVC . Q10H [facility] Rx#:[id number] Oral 200 / 200 Other: Meal Dinner Percent of Meal Consumed 20% Total Peritoneal Dialysis -60 0 Output Weight 97.5 kg 96.34 kg Blood Glucose* 225 196 Patient Weight 04/10/17 23:59 Weight 96.34 kg - General Appearance Exam: General appearance: well-developed, appears started age, chronically ill, fatigue, frail EENT: ATNC, PERRL, mucous membranes dry Neck: supple Respiratory: clear Cardiology: no edema, regular rate, regular rhythm, normal S1, normal S2, 1+ pretibial pitting edema. - Dialysis Access Additional Comments: PD catheter was without pain or erythema or exudates. Gastrointestinal: normoactive bowel sounds, no guarding, obese Additional Comments: +Fluid wave consistent with PD fluid dwell in place Integumentary: warm and dry Neurologic: no focal deficit, no asterixis, alert and oriented x3 Musculoskeletal: no deformities, no cyanosis Psychiatric: mood/affect appropriate, cooperative - Lab 04/10/17 03:41 04/10/17 03:41 Most recent lab results Calcium 6.9 mg/dL (8.6-10.8) L 04/10/17 03:41 Phosphorus 4.5 mg/dL (2.3-4.7) 04/10/17 03:41 Magnesium 3.5 mg/dL (1.6-2.6) H 04/09/17 05:27 Consult Discharge Plan - Plan Referrals: Oseas Graham MD [Primary Care Provider] -
[2017-04-10] MEDS ORDERED: 0.9 % Sodium Chloride 500 ML IVC SCH (08:07)
--- NOTE | 2017-04-10 08:48 | Internal Med Progress Note ---
Date of Encounter: 04/10/17 Time of Encounter: 08:47 - Assessment and plan (1) Hyperkalemia Current Visit: Yes Status: Resolved Assessment and plan: improved with peritoneal dialysis; continue to monitor; (2) Hyponatremia Current Visit: Yes Status: Acute Assessment and plan: Serum sodium noted to be around 135 on lab work done 2 months ago. Noted to have minimal response with IV hydration. Discussed with nephrology, suspect hypervolemic state with underlying cirrhosis. Plan for Tolvaptan possibly; IV fluids at minimal rate per Nephrology; monitor serum sodium. (3) UTI (urinary tract infection) Current Visit: Yes Status: Ruled-out Assessment and plan: Urinalysis was suggestive of UTI, however urine culture shows no bacterial growth. We will hold off on antibiotics at this time. Qualifiers: Urinary tract infection type: acute cystitis Hematuria presence: without hematuria Qualified Code(s): N30.00 - Acute cystitis without hematuria (4) Pancytopenia Current Visit: Yes Status: Chronic Assessment and plan: Noted to have chronic leukopenia and thrombocytopenia along with acute anemia, which could be related to underlying hepatocellular carcinoma and cirrhosis. No active bleeding noted at this time. Received 2 units PRBC transfusion during this admission with no significant change in hemoglobin, noted to be 7.4 today. This could be a complement of dilutional anemia, but Hb still is quite low; will send reticulocyte count, serum LDH, haptoglobin and iron profile, Vit B12, FA levels; will consult Hematology for further recommendations; (5) Liver cirrhosis Current Visit: Yes Status: Chronic Qualifiers: Hepatic cirrhosis type: unspecified hepatic cirrhosis Ascites presence: with ascites Qualified Code(s): K74.60 - Unspecified cirrhosis of liver (6) Liver cancer Current Visit: Yes Status: Chronic Qualifiers: Liver malignancy type: hepatocellular carcinoma Qualified Code(s): C22.0 - Liver cell carcinoma (7) Diabetes Current Visit: Yes Status: Chronic Assessment and plan: Blood sugars noted to be uncontrolled. This could be related to peritoneal dialysate. We will increase basal insulin and increase sliding scale insulin. Continue Accu-Chek blood glucose monitoring. Diabetic diet. Qualifiers: Diabetes mellitus type: type 2 Diabetes mellitus complication status: with kidney complications Diabetes mellitus complication detail: with chronic kidney disease Diabetes mellitus intermediate designer insulin use: without mcc use Chronic kidney disease stage: on chronic dialysis Qualified Code(s): E11.22 - Type 2 diabetes mellitus with diabetic chronic kidney disease; N18.6 - End stage renal disease; Z99.2 - Dependence on renal dialysis (8) Depression Current Visit: Yes Status: Chronic Qualifiers: Depression Type: unspecified Qualified Code(s): F32.9 - Major depressive disorder, single episode, unspecified (9) Secondary hyperparathyroidism of renal origin Current Visit: Yes Status: Chronic (10) ESRD (end stage renal disease) on dialysis Current Visit: Yes Status: Chronic Assessment and plan: Noted to be on home peritoneal dialysis. Nephrology consulted, patient will receive ongoing dialysis while in the hospital. Continue multivitamins and phosphate binders. Peritoneal fluid culture negative. - Subjective Interval history: Feels better today; able to tolerate diet, completed all of his breakfast; no nausea, emesis, abdominal pain; no bowel movements yet; no chest pain or dyspnea ; - Constitutional Vitals: Temp Pulse Resp BP Pulse Ox 98.2 F 78 17 100/59 97 04/10/17 06:59 04/10/17 06:59 04/10/17 06:59 04/10/17 06:59 04/10/17 06:59 General appearance: Present: A&O X 3, answers questions appropriately - Respiratory Respiratory exam: Present: CTAB. Absent: accessory muscle use, rales, rhonchi, wheezes - Cardiovascular Cardiovascular exam: Present: RRR, +S1, +S2. Absent: diastolic murmur, gallop, rubs, systolic murmur - GI/Abdominal GI/Abdominal exam: Present: distended, firm, normal bowel sounds, soft, no peritoneal signs. Absent: tenderness - Extremities Exam Extremities exam: Present: full ROM, warm, radial pulses palpable and symetrical. Absent: calf tenderness, cyanotic, pedal edema Internal Medicine: Result - Labs CBC & Chem 7: 04/10/17 03:41 04/10/17 03:41 Labs: Short CBC 04/10/17 Range/Units 03:41 WBC 1.7 L (4.3-11.1) K/mcL Hgb 7.4 L (12.9-16.9) g/dL Hct 22.5 L (37.5-50.1) % Plt Count 23 L* (140-400) K/mcL Neutrophils # 0.9 L (1.6-8.9) K/mcL BMP 04/10/17 03:41 Sodium 126 L Potassium 4.5 Chloride 93 L Carbon Dioxide 25 BUN 69 H Creatinine 9.19 H Glucose 207 H Calcium 6.9 L Liver Function 04/10/17 Range/Units 03:41 Albumin 2.1 L (3.5-5.0) g/dL Consult Discharge Plan - Plan Referrals: Oseas Graham MD [Primary Care Provider] -
[2017-04-10] MEDS ORDERED: Gentamicin Oint 15 GM TUBE TP SCH (09:00)
[2017-04-10 09:03] LABS: Retculocyte # 0.12 M/mcL (0.05-0.10); Reticulocyte % 5.2 % (1.6-2.8)
[2017-04-10] MEDS: Insulin DETEMIR 100 UNIT/ML X5UNITS SQ SCH ×2 (09:05→20:55)
[2017-04-10 09:18] LABS: % Iron Saturation 17 % (20-55); Iron 58 mcg/dL (65-175); Transferrin 249 mg/dL (174-364)
[2017-04-10 09:39] LABS: Ferritin 91 ng/ml (22-275)
[2017-04-10 09:52] LABS: Folate 13.6 ng/mL (7.0-31.4)
[2017-04-10] MEDS ORDERED: Tolvaptan 15 MG TABLET PO ONE (10:29)
[2017-04-10] MEDS: Gentamicin Oint 15 GM TUBE TP SCH ×2 (13:56→20:54)
[2017-04-10] MEDS ORDERED: SODIUM CHLORIDE/NAHCO3/KCL/PEG 4,000 ML SOLN.RECON PO ONE (15:07)
--- NOTE | 2017-04-10 16:15 | Oncology Inp Consult Note ---
Date of Encounter: 04/10/17 Time of Encounter: 15:48 - Data of Consult Patient: known to practice within the last 3 years Consult date: 04/10/17 Requesting Physician: Moraima Molina MD Primary Care Provider: Oseas Graham MD - Consult Narrative Reason for consult: Unexplained pancytopenia History of present illness: Mr. Daly is a 76 year old gentleman seen in consultation regarding unexplained pancytopenia. He presented with intractable nausea vomiting and progressive weakness and was found to be pancytopenic on admission (WBC 2.3, hemoglobin 7, platelet count 31, 000.) No obvious explanation for his cytopenias and workup has returned unremarkable for hematinic deficiencies etc. Thyroid panel from last January was unremarkable. Patient has a history of end-stage renal disease and is on peritoneal dialysis at home. Nephrology is on board during this hospitalization and I have reviewed Dr. Winn's consultation for details. Appreciate his input. He also has an extensive history of the liver disease including a long-standing history of cirrhosis which was previously managed by Dr. Pérez. He has been lost to follow-up for the last several years according to patient and family today. He does recall prior finding of esophageal varices and colorectal humerus requiring banding. No recent endoscopies. Per most recent consultation from GI here at the [facility], his child Smith class B liver disease. He also has history of HCC that was initially treated with catheter position at [facility] in the spring of 2014. Per patient, he had recent recurrence of his HCC and appears to have been treated with what appears to be transarterial chemoembolization again at [facility]. He reports that his last follow-up appointment, he was told that he was JUANA. Unfortunately, he is unable to give me other specific details of his oncologic history of management. Oncology is consulted re: pancytopenia. Patient seen and examined at bedside with the daughter Candelaria present to provide additional information. He reports that he was recently started on oral iron therapy due to low blood counts. He subsequently noted dark stools but denies any dark stools prior to starting oral iron. He is also recently noted skin purpura over his anterior chest and most pronounced over his bilateral lower extremities. He denies any other bleeding symptoms are episodes. Since admission, he has received 2 units of packed red cells but hemoglobin is only improved from 7 on admission to 7.4 post transfusion. Thrombocytopenia also worsening with most recent clinic count of 23,000 versus 31,000 on admission. Leukopenia is of moderate severity. He previously saw Dr. Lagos without practice but has not had any encounter with oncology since May 2015. He is interested in reestablishing with hematology oncology for ongoing management of his HCC and pancytopenia. Rest of past medical, surgical, family, social history detailed below and verified with patient today. Review of systems: 12 point review of systems performed with patient and positive findings noted in history of present illness. All other systems are negative: Physical exam: Vital Signs Temp 97.8 F 04/10/17 11:20 Pulse 80 04/10/17 11:20 Resp 16 04/10/17 11:20 BP 107/50 04/10/17 11:20 Pulse Ox 96 04/10/17 11:20 GENERAL: Alert and oriented, comfortable appearing. Peritoneal dialysis is ongoing. Mental Status: Affect appropriate for circumstances HEENT: Sclerae anicteric. No mucositis or thrush. No other oral or pharyngeal lesions or erythema. Skin: Scattered petechiae over anterior chest wall and abdomen. Diffuse petechiae over bilateral lower extremity. No evidence of skin malignancy Lymph nodes: No cervical, supraclavicular, axillary, or inguinal adenopathy. Lungs: Clear to auscultation bilaterally. Clear to percussion bilaterally. Cardiovascular: Regular rate and rhythm. No gallops, murmurs, or rubs. Abdomen: Soft, nontender; protuberant. No organomegaly or masses palpable. Extremities: No edema. No calf swelling or tenderness. No joint deformity. Neurologic: Alert, no focal weakness or sensory abnormalities. Results: Laboratory Last Values WBC 1.7 K/mcL (4.3-11.1) L 04/10/17 03:41 RBC 2.35 M/mcL (4.19-5.50) L 04/10/17 03:41 Hgb 7.4 g/dL (12.9-16.9) L 04/10/17 03:41 Hct 22.5 % (37.5-50.1) L 04/10/17 03:41 MCV 95.7 fL (83.0-100.0) 04/10/17 03:41 MCH 31.5 pg (28.0-33.3) 04/10/17 03:41 MCHC 32.9 g/dL (31.6-35.5) 04/10/17 03:41 RDW 14.7 % (11.5-14.5) H 04/10/17 03:41 Plt Count 23 K/mcL (140-400) L* 04/10/17 03:41 MPV 10.8 fL (9.4-12.4) 04/10/17 03:41 Reticulocyte # 0.12 M/mcL (0.05-0.10) H 04/10/17 08:40 Immature Gran % 1.2 % (0-4) 04/10/17 03:41 Seg Neutrophils % 51.4 % 04/10/17 03:41 Lymphocytes % 20.7 % 04/10/17 03:41 Monocytes % 15.4 % 04/10/17 03:41 Eosinophils % 10.7 % 04/10/17 03:41 Basophils % 0.6 % 04/10/17 03:41 Neutrophils # 0.9 K/mcL (1.6-8.9) L 04/10/17 03:41 Lymphocytes # 0.4 K/mcL (0.6-4.6) L 04/10/17 03:41 Monocytes # 0.3 K/mcL (0.0-1.3) 04/10/17 03:41 Eosinophils # 0.2 K/mcL (0.0-0.6) 04/10/17 03:41 Basophils # 0.0 K/mcL (0.0-0.2) 04/10/17 03:41 Platelet Estimate Marked Decrease (Normal) L 04/10/17 03:41 Immature Plt Fraction 3.4 % (1.1-6.1) 04/09/17 05:27 Percent Retic 5.2 % (1.6-2.8) H 04/10/17 08:40 Immature Retic Fraction 32.0 % (11.0-38.0) 04/10/17 08:40 Retic Hgb Equivalent 34.2 pg (28.61-36.33) 04/10/17 08:40 Sodium 126 mEq/L (136-145) L 04/10/17 03:41 Potassium 4.5 mEq/L (3.5-4.5) 04/10/17 03:41 Chloride 93 mEq/L (98-109) L 04/10/17 03:41 Carbon Dioxide 25 mEq/L (19-29) 04/10/17 03:41 BUN 69 mg/dL (8-26) H 04/10/17 03:41 Creatinine 9.19 mg/dL (0.72-1.25) H 04/10/17 03:41 Est GFR ( Amer) 7 (> 60) L 04/10/17 03:41 Est GFR (Non-Af Amer) 6 (> 60) L 04/10/17 03:41 BUN/Creatinine Ratio 8 (6-26) 04/10/17 03:41 Glucose 207 mg/dL (70-99) H 04/10/17 03:41 POC Glucose 225 (58-89) H 04/09/17 21:18 Est Mean Plasma Glucose 137 mg/dl 04/08/17 13:57 Hemoglobin A1c 6.4 % (-5.6) H 04/08/17 13:57 Calculated Osmolality 288 (280-300) 04/10/17 03:41 Calcium 6.9 mg/dL (8.6-10.8) L 04/10/17 03:41 Ionized Calcium 0.92 mmol/L (1.15-1.35) L 04/10/17 03:41 Phosphorus 4.5 mg/dL (2.3-4.7) 04/10/17 03:41 Magnesium 3.5 mg/dL (1.6-2.6) H 04/09/17 05:27 Iron 58 mcg/dL (65-175) L 04/10/17 08:40 % Saturation 17 % (20-55) L 04/10/17 08:40 Transferrin 249 mg/dL (174-364) 04/10/17 08:40 Ferritin 91 ng/ml (22-275) 04/10/17 08:40 Total Bilirubin 0.7 mg/dL (0.2-1.2) 04/09/17 05:27 AST 14 Units/L (5-34) 04/09/17 05:27 ALT 12 Units/L (0-55) 04/09/17 05:27 Alkaline Phosphatase 164 Units/L (38-126) H 04/09/17 05:27 Lactate Dehydrogenase 185 Units/L (159-327) 04/10/17 08:40 Troponin I 0.01 ng/mL (0-0.03) 04/08/17 13:57 Serum Total Protein 5.6 g/dL (6.0-8.3) L 04/09/17 05:27 Albumin 2.1 g/dL (3.5-5.0) L 04/10/17 03:41 Globulin 3.4 g/dL (2.4-3.5) 04/09/17 05:27 Albumin/Globulin Ratio 0.6 (1.1-2.2) L 04/09/17 05:27 Vitamin B12 1488 pg/mL (213-816) H 04/10/17 08:40 Folate 13.6 ng/mL (7.0-31.4) 04/10/17 08:40 Urine Color Yellow (Yellow) 04/08/17 16:22 Urine Clarity Slightly Hazy (Clear) 04/08/17 16:22 Urine pH 5.0 pH Units (5.0-8.0) 04/08/17 16:22 Ur Specific [place] > 1.030 (1.010-1.025) H 04/08/17 16:22 Urine Protein Trace mg/dL (Neg-Trace) 04/08/17 16:22 Urine Glucose (UA) 500 mg/dL (Normal) H 04/08/17 16:22 Urine Ketones Negative mg/dL (Negative) 04/08/17 16:22 Urine Blood Negative (Negative) 04/08/17 16:22 Urine Nitrite Negative (Negative) 04/08/17 16:22 Urine Bilirubin Small (Negative) H 04/08/17 16:22 Urine Urobilinogen Normal mg/dL (Normal) 04/08/17 16:22 Ur Leukocyte Esterase Trace (Negative) H 04/08/17 16:22 Urine Microscopic RBC 5-15 per hpf (0-3) H 04/08/17 16:22 Urine Microscopic WBC 5-15 per hpf (0-3) H 04/08/17 16:22 Ur Squamous Epith Cells Moderate per lpf (None-Few) H 04/08/17 16:22 Urine Bacteria None Seen per hpf (None-Few) 04/08/17 16:22 Hyaline Casts None Seen per lpf (None-Few) 04/08/17 16:22 Ur Culture Indicated? YES (NO) A 04/08/17 16:22 Peritoneal Appearance CLEAR (Clear) 04/09/17 05:00 Peritoneal Volume 40.0 mL 04/09/17 05:00 Peritoneal RBC < 0.002 M/mcL (0.000-0.002) 04/09/17 05:00 Periton Tot Nuc Cells 13 TNC/mcL (0-300) 04/09/17 05:00 Periton Neutrophils 4.5 % 04/09/17 05:00 Periton Band Neuts Test Not Performed 04/09/17 05:00 Peritoneal Eosinophils Test Not Performed 04/09/17 05:00 Peritoneal Basophils Test Not Performed 04/09/17 05:00 Periton Lymphocytes % 10.4 % 04/09/17 05:00 Periton Monocytes % 9.0 % 04/09/17 05:00 Periton Other Cells % 76.1 % 04/09/17 05:00 Blood Type A POSITIVE 04/08/17 17:20 Antibody Screen NEGATIVE 04/08/17 17:20 Crossmatch See Detail 04/08/17 17:20 Radiographic studies: I personally reviewed and interpreted patient's most recent imaging studies dated 04/08/17. I discussed the findings with the patient today. Chest X-Ray 04/08/17 13:35 IMPRESSION: No acute cardiopulmonary process. D/ / 04/08/2017 14:51:58 Yazan Toscano MD / Maria Luz Mckeon Interpreting Provider: Yazan Toscano MD Head CT 04/08/17 13:35 IMPRESSION: No acute traumatic intracranial abnormality Underlying atrophy with periventricular and scattered frontal parietal white matter disease, likely due to small-vessel ischemic change. D/ / Serafin Shaikh MD / Serafin Shaikh MD Interpreting Provider: Serafin Shaikh MD Impression/recommendations: Pancytopenia: Possibly multifactorial. Likely contributed from underlying liver cirrhosis. Status of his HCC is unclear at this time and may be contributing as well. Given the lack of improvement in his hemoglobin with transfusion, occult blood loss needs to be considered. For his anemia, we'll recommend transfuse 2 additional units of PRBC to maintain a hemoglobin of 8, greater until we're able to exclude the possibility of ongoing blood loss. We'll recommend consultation with GI regarding upper and lower endoscopy to evaluate for bleeding. His thrombocytopenia appears to be severe based and diffuse blood extremity purpura and his platelet count. Since occult bleeding is also a concern, we'll recommend transfusion of one unit per his platelets to maintain platelet count of 30,000 or greater. If endoscopy is planned, we'll recommend to transfuse platelets to maintain platelet count of 50,000 or greater. He will also need evaluation for coagulopathy and transfusion of FFP as needed. His leukopenia is of moderate severity and we can continue to observe at this time. If he has any evidence of infection, he may need growth factor support to improve his WBC count. Hepatocellular carcinoma: He has had local therapy to what appears to be limited liver involvement. I do not have records of his recent treatments which were completely [facility]. By his report, he appears to have poor follow-up for his hepatocellular carcinoma. He has had difficulty keeping up with his appointments in [place] due to transportation issues and the complexity of his chronic comorbidities. We'll recommend to obtain abdominal imaging (abdomen ultrasound or CT) and alpha -fetoprotein level during this hospitalization for evaluation of his HCC. He is interested in reestablishing with our practice for ongoing management of his HCC and cytopenias. and we will make him an appointment with Dr. Barillas after his discharge from hospital. Cirrhosis: Etiology of his cirrhosis is unclear what appears to be relatively severe. He has chronic pancytopenia that has previously been treated to hypersplenism from cirrhosis. His previous workup has shown evidence of portal hypertension and related complications. He will need outpatient follow-up with GI upon discharge for ongoing management including portal hypertension. If he needs any invasive procedure in the future and cytopenias were to be an issue, we'll be happy to manage his cytopenias with growth factor support etc. as needed. We'll follow the patient peripherally with you during this hospitalization. Please call with any interval questions. Thank you for your excellent ongoing care for allowing us to see him while in- house. This report was created using voice recognition software and may contain errors. It was signed but not edited to expedite communication. Corrections will be made in a separate addendum as needed. Past Med Surg Social Fam HX - Past Medical History Medical history: arthritis, cancer (HCC s/p chemo in remission), cirrhosis, CHF , coronary artery disease, diabetes, GERD, kidney stones, liver disease ( cirrhosis), renal disease, other Psychiatric history: anxiety, depression - Past Surgical History Surgical History: angioplasty/stent, cholecystectomy, heart valve replacement ( Bioprosthetic aortic vavle replacement in 2013), other (Skin cancer excision left hand 12/2014) - Social History Smoking Status: Never smoker Smokeless Tobacco Status: No Alcohol use: none Drug use: none - Family History Mother Adopted: No Living Status: Age at : 61 Cause of : CVA Hx Family Cardiac Disorders: Yes (hypertension) Hx Family Endocrine Disorder: Yes (diabetes) Father Living Status: Age at : 63 Cause of : [place] Hx Family Cardiac Disorders: Yes (hypertension, [place]) Medications and Allergies Aspirin 81 mg PO DAILY 05/19/15 [History] Calcium Acetate [Phoslo] 1,334 mg PO TID 05/19/15 [History] Gabapentin [Neurontin] 300 mg PO HS 05/19/15 [History] Magnesium Oxide [Magnesium] 400 mg PO DAILY 05/19/15 [History] Simvastatin [Zocor] 10 mg PO HS 05/19/15 [History] Tamsulosin [Flomax] 0.4 mg PO BID 05/19/15 [History] Omeprazole [PriLOSEC] 40 mg PO DAILY 11/20/15 [History] OxyCODONE Immed Rel [Roxicodone 5 MG] 5 mg PO Q6HR 11/20/15 [History] Pramipexole [Mirapex] 0.25 mg PO HS 11/20/15 [History] Albuterol Sulfate [Albuterol Inhaler] 2 puff IH Q4HR #2 hfa.aer.ad 11/23/15 [Rx] Alendronate Sodium [Fosamax] 70 mg PO QWEEK 04/08/17 [History] Carvedilol [Coreg] 6.25 mg PO BID 04/08/17 [History] Cholecalciferol (D-3) [Vitamin D] 1,000 unit PO DAILY 04/08/17 [History] Iron Polysaccharide Complex [Ferrex 150] 150 mg PO DAILY 04/08/17 [History] Multivitamin [Multi-Day Vitamins] 1 each PO DAILY 04/08/17 [History] Nitroglycerin [Nitrostat] 0.4 mg SL Q5M PRN 04/08/17 [History] Allergies linezolid [From Zyvox] Allergy (Verified 04/08/17 13:05) Weakness trimethoprim [From Bactrim] Allergy (Verified 04/08/17 13:05) Weakness Oncology - Exam - Constitutional Vitals: Temp Pulse Resp BP Pulse Ox 97.8 F 80 16 107/50 96 04/10/17 11:20 04/10/17 11:20 04/10/17 11:20 04/10/17 11:20 04/10/17 11:20 Oncology - Results - Labs Labs: Short CBC 04/10/17 Range/Units 03:41 WBC 1.7 L (4.3-11.1) K/mcL Hgb 7.4 L (12.9-16.9) g/dL Hct 22.5 L (37.5-50.1) % Plt Count 23 L* (140-400) K/mcL Neutrophils # 0.9 L (1.6-8.9) K/mcL BMP 04/10/17 03:41 Sodium 126 L Potassium 4.5 Chloride 93 L Carbon Dioxide 25 BUN 69 H Creatinine 9.19 H Glucose 207 H Calcium 6.9 L Liver Function 04/10/17 Range/Units 03:41 Albumin 2.1 L (3.5-5.0) g/dL Consult Discharge Plan - Plan Referrals: Oseas Graham MD [Primary Care Provider] - (web request 04/10/2017)
[2017-04-10] MEDS: Gabapentin 300 MG CAPSULE PO SCH (20:18)
[2017-04-11] MEDS: *HR* OxyCODONE Immed Rel 5 MG TABLET PO SCH ×4 (00:01→16:42)
[2017-04-11] MEDS: Perit. Dialysis with Dex 1.5 % 2,000 ML PERITONEAL SCH ×3 (02:09→14:25)
[2017-04-11] MEDS: Gentamicin Oint 15 GM TUBE TP SCH ×4 (02:11→20:13)
[2017-04-11 05:13] LABS: Mean Corpuscular Volume 95.5 fL (83.0-100.0); Monocytes % 12.3 %
[2017-04-11 05:15] LABS: Basophils % 1.2 %; Eosinophils # 0.3 K/mcL (0.0-0.6); Eosinophils % 13.1 %; Hematocrit 27.3 % (37.5-50.1); Immature Granulocytes % 1.2 % (0-4); Immature Platelets 4.7 % (1.1-6.1); Lymphocytes # 0.3 K/mcL (0.6-4.6); Lymphocytes % 13.1 %; Mean Corpuscular Hemoglobin 31.5 pg (28.0-33.3); Monocytes # 0.3 K/mcL (0.0-1.3); Neutrophils # 1.5 K/mcL (1.6-8.9); Red Blood Count 2.86 M/mcL (4.19-5.50); Red Cell Distribution Width 15.5 % (11.5-14.5); Segmented Neutrophils % 59.1 %
[2017-04-11 05:19] LABS: Calcium 7.1 mg/dL (8.6-10.8); Potassium 4.4 mEq/L (3.5-4.5); Uric Acid 6.1 mg/dL (3.5-7.2)
[2017-04-11 05:30] LABS: Platelet Count 30 K/mcL (140-400)
[2017-04-11] MEDS: Insulin LISPRO 300 UNITS/3 ML VIAL SQ SCH ×4 (08:05→20:38)
[2017-04-11] MEDS: Iron Polysaccharide Complex 150 MG CAPSULE PO SCH (09:36)
[2017-04-11] MEDS: Magnesium Oxide 400 MG TABLET PO SCH (09:37)
[2017-04-11] MEDS: Calcium Acetate 667 MG CAPSULE PO SCH ×3 (09:37→16:43)
[2017-04-11] MEDS: Insulin DETEMIR 100 UNIT/ML X5UNITS SQ SCH ×2 (09:37→20:38)
--- NOTE | 2017-04-11 09:42 | Electrocardiograph Report ---
[address] [place] [address] Test Date: 2017-04-08 Pat Name: Serafin Daly Department: 105 Room: 2A13 Gender: M [facility] [employer]: : 1940 Requested By: Amarjit Martin Order Number: [id number] Reading MD: Zachary Reilly MD Measurements Intervals [place] Rate: 79 P: -28 DC: 178 QRS: -30 QRSD: 116 T: 91 QT: 407 QTc: 442 Interpretive Statements SINUS RHYTHM BORDERLINE LEFT AXIS DEVIATION LATERAL ISCHEMIA Electronically Signed On 04-11-2017 9:40:58 EDT by Zachary Reilly MD
--- NOTE | 2017-04-11 09:44 | Internal Med Progress Note ---
Date of Encounter: 04/11/17 Time of Encounter: 08:30 - Assessment and plan (1) Hyperkalemia Current Visit: Yes Status: Resolved (2) Hyponatremia Current Visit: Yes Status: Acute Assessment and plan: Serum sodium noted to be around 135 on lab work done 2 months ago. Noted to have minimal response with IV hydration. Slowly improving, 127 today. Discussed with nephrology, suspect hypervolemic state with underlying cirrhosis. Received 1 dose of Tolvaptan; IV fluids discontinued at this time. Urine osmolality noted to be low. Peritoneal dialysate bag to be adjusted for pedal edema and hyponatremia. monitor serum sodium. (3) UTI (urinary tract infection) Current Visit: Yes Status: Ruled-out Qualifiers: Urinary tract infection type: acute cystitis Hematuria presence: without hematuria Qualified Code(s): N30.00 - Acute cystitis without hematuria (4) Pancytopenia Current Visit: Yes Status: Chronic Assessment and plan: Noted to have chronic leukopenia and thrombocytopenia along with acute anemia, which could be related to underlying hepatocellular carcinoma and cirrhosis. No active bleeding noted at this time. Received 3 units PRBC and a unit of platelet transfusion during this admission. Cell counts noted to be improved today. Iron profile shows slightly low iron stores with normal ferritin. Serum vitamin B12 and folic acid within normal limits. Hemolysis workup inconclusive. Hematology consult appreciated. Patient to follow-up as outpatient. Recommend to rule out occult GI bleed during this admission. (5) Liver cirrhosis Current Visit: Yes Status: Chronic Qualifiers: Hepatic cirrhosis type: unspecified hepatic cirrhosis Ascites presence: with ascites Qualified Code(s): K74.60 - Unspecified cirrhosis of liver (6) Liver cancer Current Visit: Yes Status: Chronic Qualifiers: Liver malignancy type: hepatocellular carcinoma Qualified Code(s): C22.0 - Liver cell carcinoma (7) Diabetes Current Visit: Yes Status: Chronic Assessment and plan: Blood sugars noted to be better controlled today. Continue basal bolus insulin regimen. Continue Accu-Chek blood glucose monitoring. Diabetic diet. Qualifiers: Diabetes mellitus type: type 2 Diabetes mellitus complication status: with kidney complications Diabetes mellitus complication detail: with chronic kidney disease Diabetes mellitus superintendent [employer] insulin use: without alf use Chronic kidney disease stage: on chronic dialysis Qualified Code(s): E11.22 - Type 2 diabetes mellitus with diabetic chronic kidney disease; N18.6 - End stage renal disease; Z99.2 - Dependence on renal dialysis (8) Depression Current Visit: Yes Status: Chronic Qualifiers: Depression Type: unspecified Qualified Code(s): F32.9 - Major depressive disorder, single episode, unspecified (9) Secondary hyperparathyroidism of renal origin Current Visit: Yes Status: Chronic (10) ESRD (end stage renal disease) on dialysis Current Visit: Yes Status: Chronic Assessment and plan: Noted to be on home peritoneal dialysis. Nephrology consulted, patient will receive ongoing dialysis while in the hospital. Continue multivitamins and phosphate binders. Peritoneal fluid culture negative. (11) Anemia Current Visit: Yes Status: Chronic Assessment and plan: Acute on chronic anemia, workup as above, listed under pancytopenia. Hematology consult appreciated. Plan to rule out occult GI bleed while inpatient. Consulted surgery, plan for EGD and colonoscopy today, which is being postponed to April 13 due to poor bowel prep and accidentally having a clear liquid breakfast this morning. Continue clear liquid diet with 2 day bowel prep per surgery recommendations. Qualifiers: Anemia type: due to chronic kidney disease Chronic kidney disease stage: on chronic dialysis Qualified Code(s): N18.6 - End stage renal disease; D63.1 - Anemia in chronic kidney disease; Z99.2 - Dependence on renal dialysis - Subjective Interval history: Seems slightly more confused as he reports 'still trying to wake up'. Ate part of his clear liquid breakfast tray this morning. Denies abdominal pain, chest pain, dyspnea. - Constitutional Vitals: Temp Pulse Resp BP Pulse Ox 97.7 F 78 16 116/68 96 04/11/17 07:37 04/11/17 07:37 04/11/17 07:37 04/11/17 07:37 04/11/17 07:37 General appearance: Present: A&O X 2, answers questions appropriately - Respiratory Respiratory exam: Present: CTAB. Absent: accessory muscle use, rales, rhonchi, wheezes - Cardiovascular Cardiovascular exam: Present: RRR, +S1, +S2. Absent: diastolic murmur, gallop, rubs, systolic murmur - GI/Abdominal GI/Abdominal exam: Present: normal bowel sounds, soft, no peritoneal signs. Absent: distended, tenderness - Extremities Exam Extremities exam: Present: pedal edema (1+ pitting pedal edema bilaterally), warm, radial pulses palpable and symetrical. Absent: calf tenderness, cyanotic - Skin Skin exam: Present: dry, intact, petechiae (Bilateral lower extremities with diffuse petechiae) Internal Medicine: Result - Labs CBC & Chem 7: 04/11/17 04:58 04/11/17 04:58 Labs: Short CBC 04/11/17 Range/Units 04:58 WBC 2.6 L D (4.3-11.1) K/mcL Hgb 9.0 L D (12.9-16.9) g/dL Hct 27.3 L (37.5-50.1) % Plt Count 30 L* (140-400) K/mcL Neutrophils # 1.5 L (1.6-8.9) K/mcL BMP 04/11/17 04:58 Sodium 127 L Potassium 4.4 Chloride 93 L Carbon Dioxide 25 BUN 63 H Creatinine 8.90 H Glucose 138 H Calcium 7.1 L Consult Discharge Plan - Plan Referrals: Oseas Graham MD [Primary Care Provider] - 04/17/17 10:00 am ()
[2017-04-11] MEDS ORDERED: Polyethylene Glycol 3350 255 GM POWDER PO ONE (12:43)
--- NOTE | 2017-04-11 12:56 | Event Note ---
Date of Encounter: 04/11/17 Time of Encounter: 12:53 Patient has been seen and evaluated by Dr. Silveira for endoscopy evaluation for anemia. The patient did not receive a bowel prep last evening. Will continue clear liquids for now. Patient will require a 2 day bowel prep at this point. Will proceed with Miralax and Gatorade bowel prep as he did not tolerate Nulytely. Plan for NPO after midnight 04/13/17 and EGD/Colonoscopy evaluation with Dr. Silveira on 04/13/17.
--- NOTE | 2017-04-11 13:52 | Nephrology Progress Note ---
Date of Encounter: 04/11/17 Time of Encounter: 07:45 - Assessment and Plan (1) ESRD (end stage renal disease) Current Visit: No Status: Chronic Continue PD but with noticable edema, I'll increase the PD to 2.5% dextrose q6hr to hopefully improve UF, to lower the volume status and improve the hyponatremia. Hypoalbuminemia: Shaunaro shakes recommended. Pancytopenia: ensure there is no GIB. Discussed with the Hospitalists (2) Hyponatremia Current Visit: Yes Status: Acute (3) Pancytopenia Current Visit: Yes Status: Acute (4) Hypoalbuminemia Current Visit: Yes Status: Acute (5) Hypocalcemia Current Visit: Yes Status: Acute (6) Hyperphosphatemia Current Visit: No Status: Acute (7) Secondary hyperparathyroidism of renal origin Current Visit: Yes Status: Chronic Subjective Principal diagnosis: ESRD, Hyponatremia, Interval history: Pt was seen/examined earlier today. He did not affirm abd pain, exudates or erythema related symptoms with regard to the PD exchanges. He was by himself in the exam room on the bed. Objective - Vital Signs Vital signs: Vital Signs Temp Pulse Resp BP Pulse Ox 04/11/17 11:56 97.9 F 65 16 131/69 97 04/11/17 07:37 97.7 F 78 16 116/68 96 04/11/17 07:36 16 96 04/11/17 04:34 98.1 F 82 20 121/81 95 04/10/17 23:43 98.1 F 85 20 121/63 97 04/10/17 23:41 16 97 04/10/17 20:13 16 97 04/10/17 20:07 97.9 F 88 17 129/70 95 04/10/17 19:41 97.9 F 88 17 129/70 95 04/10/17 17:35 97.6 F 83 18 145/72 95 04/10/17 17:20 97.4 F L 81 20 134/68 94 04/10/17 17:07 97.5 F L 81 20 151/70 95 04/10/17 17:06 97.9 F 83 18 136/59 95 04/10/17 16:52 98.0 F 80 18 127/68 93 04/10/17 16:46 98.0 F 82 18 122/65 93 04/10/17 16:30 98.2 F 80 18 118/66 95 04/10/17 16:06 98.4 F 79 16 101/58 96 04/10/17 15:59 16 97 Intake and Output 04/10/17 04/11/17 04/11/17 23:59 07:59 15:59 Intake Total 1108 / 1108 460 / 460 Output Total 0 / 0 Balance 1108 / 1108 460 / 460 Intake: Oral 600 / 600 460 / 460 Blood Product 508 / 508 Platelet Pheresis Lp Irr 210 / 210 2nd Unit [id number] Rbcs Leuko Poor As-1 298 / 298 Unit [id number] Output: Urine 0 / 0 Other: Meal liq diet Lunch Percent of Meal Consumed 0% Total Peritoneal Dialysis -800 260 -400 Output Stool Size Moderate Stool Consistency loose Stool Color Brown Weight 98 kg 98.5 kg 98.8 kg Blood Glucose* 175 129 183 Patient Weight 04/11/17 23:59 Weight 98.8 kg - General Appearance Exam: General appearance: well-developed, appears started age, chronically ill, fatigue, frail EENT: ATNC, PERRL, mucous membranes dry Neck: supple Respiratory: clear Cardiology: no edema, regular rate, regular rhythm, normal S1, normal S2, 1+ pretibial pitting edema. - Dialysis Access Additional Comments: PD catheter was without pain or erythema or exudates. Gastrointestinal: normoactive bowel sounds, no guarding, obese Additional Comments: +Fluid wave consistent with PD fluid dwell in place Integumentary: warm and dry Neurologic: no focal deficit, no asterixis, alert and oriented x3 Musculoskeletal: no deformities, no cyanosis Psychiatric: mood/affect appropriate, cooperative - Lab 04/11/17 04:58 04/11/17 04:58 Most recent lab results Calcium 7.1 mg/dL (8.6-10.8) L 04/11/17 04:58 Phosphorus 4.5 mg/dL (2.3-4.7) 04/10/17 03:41 Magnesium 3.5 mg/dL (1.6-2.6) H 04/09/17 05:27 Consult Discharge Plan - Plan Referrals: sOeas Graham MD [Primary Care Provider] - 04/17/17 10:00 am ()
[2017-04-11] MEDS: PERITON. DIALYSIS 13-DEX 2.5 % 2,000 ML PERITONEAL SCH ×2 (14:26→20:07)
[2017-04-11] MEDS: Gabapentin 300 MG CAPSULE PO SCH (20:07)
[2017-04-12] MEDS: *HR* OxyCODONE Immed Rel 5 MG TABLET PO SCH ×5 (00:49→23:51)
[2017-04-12] MEDS: PERITON. DIALYSIS 13-DEX 2.5 % 2,000 ML PERITONEAL SCH ×2 (01:58→09:08)
[2017-04-12] MEDS: Gentamicin Oint 15 GM TUBE TP SCH ×4 (02:31→20:49)
[2017-04-12 04:13] LABS: Immature Granulocytes % 1.1 % (0-4); Mean Corpuscular Hemoglobin 31.1 pg (28.0-33.3)
[2017-04-12 04:15] LABS: Basophils % 1.1 %; Eosinophils # 0.4 K/mcL (0.0-0.6); Eosinophils % 14.1 %; Hematocrit 27.1 % (37.5-50.1); Hemoglobin 8.8 g/dL (12.9-16.9); Immature Platelets 6.2 % (1.1-6.1); Lymphocytes # 0.4 K/mcL (0.6-4.6); Lymphocytes % 14.1 %; Mean Corpuscular HGB Conc 32.5 g/dL (31.6-35.5); Mean Corpuscular Volume 95.8 fL (83.0-100.0); Mean Platelet Volume 10.6 fL (9.4-12.4); Monocytes # 0.3 K/mcL (0.0-1.3); Monocytes % 10.6 %; Red Blood Count 2.83 M/mcL (4.19-5.50)
[2017-04-12 04:23] LABS: Calcium 7.2 mg/dL (8.6-10.8); Neutrophils # 1.5 K/mcL (1.6-8.9); Potassium 3.9 mEq/L (3.5-4.5)
[2017-04-12 04:24] LABS: Platelet Count 25 K/mcL (140-400)
[2017-04-12] MEDS ORDERED: 0.9 % Sodium Chloride 250 ML ONE (08:32)
[2017-04-12] MEDS ORDERED: Polyethylene Glycol 3350 255 GM POWDER PO ONE (09:00)
[2017-04-12] MEDS: Insulin LISPRO 300 UNITS/3 ML VIAL SQ SCH ×4 (09:01→20:35)
[2017-04-12] MEDS: Magnesium Oxide 400 MG TABLET PO SCH (09:05)
[2017-04-12] MEDS: Iron Polysaccharide Complex 150 MG CAPSULE PO SCH (09:05)
[2017-04-12] MEDS: Calcium Acetate 667 MG CAPSULE PO SCH ×3 (09:05→17:29)
[2017-04-12] MEDS: Insulin DETEMIR 100 UNIT/ML X5UNITS SQ SCH ×2 (09:08→20:52)
--- NOTE | 2017-04-12 09:36 | General Surgery Progress Note ---
Date of Encounter: 04/12/17 Time of Encounter: 09:34 - Assessment and Plan (1) Anemia in CKD (chronic kidney disease) Current Visit: No Status: Chronic The patient is scheduled for an EGD and colonoscopy with Dr. Silveira for 04/13/17 ( time not available). NPO after midnight. Qualifiers: Chronic kidney disease stage: on chronic dialysis Qualified Code(s): N18.6 - End stage renal disease; D63.1 - Anemia in chronic kidney disease; Z99.2 - Dependence on renal dialysis Subjective Patient reports: no new complaints (Patient tolerating PO bowel prep. No nausea. No abdominal pain.) Objective Vital Signs - Last 8 Hours Temp Pulse Resp BP Pulse Ox 04/12/17 08:44 97.4 F L 80 18 126/78 99 04/12/17 08:36 97.4 F L 78 18 146/70 98 04/12/17 06:45 97.6 F 59 16 102/57 97 04/12/17 05:07 97.9 F 58 16 108/52 94 Intake and Output 04/11/17 04/12/17 04/12/17 23:59 07:59 15:59 Intake Total 480 / 480 677 / 677 Balance 480 / 480 677 / 677 Intake: Oral 480 / 480 480 / 480 Blood Product 197 / 197 Platelet Pheresis Lp Irr 197 / 197 1st Unit [id number] Other: Meal Dinner Breakfast Percent of Meal Consumed 100% Total Peritoneal Dialysis 400 -400 Output Stool Size Large Stool Consistency loose liquid Stool Color Brown # Voids 1 # Bowel Movements 1 Weight 100.1 kg 100.7 kg Blood Glucose* 126 121 Patient Weight 04/12/17 23:59 Weight 100.7 kg - General physical appearance well developed, well nourished, no distress - Labs 04/12/17 03:43 04/12/17 03:43 Diabetes panel 04/12/17 Range/Units 03:43 Sodium 124 L (136-145) mEq/L Potassium 3.9 (3.5-4.5) mEq/L Chloride 89 L (98-109) mEq/L Carbon Dioxide 26 (19-29) mEq/L BUN 57 H (8-26) mg/dL Creatinine 8.68 H (0.72-1.25) mg/dL Glucose 191 H (70-99) mg/dL Calcium 7.2 L (8.6-10.8) mg/dL Calcium panel 04/12/17 Range/Units 03:43 Calcium 7.2 L (8.6-10.8) mg/dL Pituitary panel 04/12/17 Range/Units 03:43 Sodium 124 L (136-145) mEq/L Potassium 3.9 (3.5-4.5) mEq/L Chloride 89 L (98-109) mEq/L Carbon Dioxide 26 (19-29) mEq/L BUN 57 H (8-26) mg/dL Creatinine 8.68 H (0.72-1.25) mg/dL Glucose 191 H (70-99) mg/dL Calcium 7.2 L (8.6-10.8) mg/dL Adrenal panel 04/12/17 Range/Units 03:43 Sodium 124 L (136-145) mEq/L Potassium 3.9 (3.5-4.5) mEq/L Chloride 89 L (98-109) mEq/L Carbon Dioxide 26 (19-29) mEq/L BUN 57 H (8-26) mg/dL Creatinine 8.68 H (0.72-1.25) mg/dL Glucose 191 H (70-99) mg/dL Calcium 7.2 L (8.6-10.8) mg/dL Consult Discharge Plan - Plan Referrals: Oseas Graham MD [Primary Care Provider] - 04/19/17 1:45 pm (With Dr Burleson )
--- NOTE | 2017-04-12 10:34 | Internal Med Progress Note ---
<Shannan Oswald - Last Filed: 04/12/17 11:51> Date of Encounter: 04/12/17 Time of Encounter: 10:31 - Assessment and plan (1) ESRD (end stage renal disease) on dialysis Current Visit: Yes Status: Chronic Assessment and plan: Dialysis is being managed by Nephrology. (2) Hyponatremia Current Visit: Yes Status: Acute Assessment and plan: Sodium has decreased slightly and is a hypervolemic hyponatremia. Nephrology is aware and is going to continue with dialysis treatment. (3) Pancytopenia Current Visit: Yes Status: Chronic Assessment and plan: Noted to have chronic leukopenia and thrombocytopenia along with acute anemia, which could be related to underlying hepatocellular carcinoma and cirrhosis. No active bleeding at this time. (4) Anemia Current Visit: Yes Status: Chronic Assessment and plan: Hemoglobin level initially improved after receiving 3 units of PRBC on 2016 but has now decreased again. EGD and colonoscopy are scheduled to be performed by Dr. Silveira tomorrow to rule out occult GI bleed. Patient is doing bowel prep in preparation Indus NPO after midnight. Qualifiers: Anemia type: due to chronic kidney disease Chronic kidney disease stage: on chronic dialysis Qualified Code(s): N18.6 - End stage renal disease; D63.1 - Anemia in chronic kidney disease; Z99.2 - Dependence on renal dialysis (5) Liver cirrhosis Current Visit: Yes Status: Chronic Qualifiers: Hepatic cirrhosis type: unspecified hepatic cirrhosis Ascites presence: with ascites Qualified Code(s): K74.60 - Unspecified cirrhosis of liver (6) Liver cancer Current Visit: Yes Status: Chronic Assessment and plan: Hepatocellular carcinoma Qualifiers: Liver malignancy type: hepatocellular carcinoma Qualified Code(s): C22.0 - Liver cell carcinoma (7) Hypoalbuminemia Current Visit: Yes Status: Acute Assessment and plan: Nepro shakes ordered for patient per recommendation of nephroogy. - Subjective Interval history: Patient sitting comfortably up in his chair. He has no complaints today. He denies chest pain, shortness of breath, nausea, vomiting. He has started his bowel prep. he has been given his platelets today and has been continuing his dialysis. - Constitutional Vitals: Temp Pulse Resp BP Pulse Ox 97.4 F L 80 18 126/78 95 04/12/17 09:04 04/12/17 09:04 04/12/17 09:04 04/12/17 09:04 04/12/17 09:04 General appearance: Present: A&O X 0, A&O X 2, pleasant, no acute distress, answers questions appropriately - Head Head exam: Present: atraumatic, normocephalic - Eye Eye exam: Present: PERRL, conjuntiva pink, sclera anicteric Pupils: Present: PERRL - Neck Neck exam general surgery: Present: supple, trachea midline. Absent: lymphadenopathy - Respiratory Respiratory exam: Present: CTAB. Absent: accessory muscle use, wheezes - Cardiovascular Cardiovascular exam: Present: RRR. Absent: clicks, distant heart sounds, rubs Additional comments: edema, normal S1, normal S2 - GI/Abdominal GI/Abdominal exam: Present: distended, normal bowel sounds. Absent: tenderness - Extremities Exam Extremities exam: Present: pedal edema Additional comments: Fistula in right upper extremity - Neurological Exam Neurological exam: Present: oriented X3, no focal deficits. Absent: pronater drift, facial droop, speech deficit - Skin Skin exam: Present: dry, intact Internal Medicine: Result - Labs CBC & Chem 7: 04/12/17 03:43 04/12/17 03:43 Labs: Short CBC 04/12/17 Range/Units 03:43 WBC 2.6 L (4.3-11.1) K/mcL Hgb 8.8 L (12.9-16.9) g/dL Hct 27.1 L (37.5-50.1) % Plt Count 25 L* (140-400) K/mcL Neutrophils # 1.5 L (1.6-8.9) K/mcL BMP 04/12/17 03:43 Sodium 124 L Potassium 3.9 Chloride 89 L Carbon Dioxide 26 BUN 57 H Creatinine 8.68 H Glucose 191 H Calcium 7.2 L Consult Discharge Plan - Plan Referrals: Oseas Graham MD [Primary Care Provider] - 04/19/17 1:45 pm (With Dr Burleson ) <Harjinder Gold - Last Filed: 04/12/17 16:10> Date of Encounter: 04/12/17 - Constitutional Vitals: Temp Pulse Resp BP Pulse Ox 97.9 F 69 18 110/58 96 04/12/17 15:17 04/12/17 15:17 04/12/17 15:17 04/12/17 15:17 04/12/17 15:17 Internal Medicine: Result - Labs CBC & Chem 7: 04/12/17 03:43 04/12/17 03:43 Labs: Short CBC 04/12/17 Range/Units 03:43 WBC 2.6 L (4.3-11.1) K/mcL Hgb 8.8 L (12.9-16.9) g/dL Hct 27.1 L (37.5-50.1) % Plt Count 25 L* (140-400) K/mcL Neutrophils # 1.5 L (1.6-8.9) K/mcL BMP 04/12/17 03:43 Sodium 124 L Potassium 3.9 Chloride 89 L Carbon Dioxide 26 BUN 57 H Creatinine 8.68 H Glucose 191 H Calcium 7.2 L - Attending Attestation I examined this patient and my medical decision-making was reviewed with the Resident Physician, Dr Oswald. I agree with the documented findings, disposition and treatment plan as described except to the extent set forth below. Patient reports no complaints. Denies shortness of breath. Assessment: Worsening hyponatremia, end-stage renal disease on hemodialysis, acute and chronic blood loss anemia, pancytopenia, hepatocellular carcinoma Plan: Continue with peritoneal dialysis. I discussed the case with nephrology. They will make adjustments to dialysis fluid to correct hyponatremia. Tovaptan is not an option because of the patient being anuric. Patient to undergo EGD and colonoscopy part of the anemia workup tomorrow.
--- NOTE | 2017-04-12 11:20 | Nephrology Progress Note ---
Date of Encounter: 04/12/17 Time of Encounter: 09:50 - Assessment and Plan (1) ESRD (end stage renal disease) Current Visit: No Status: Chronic Volume status is worsening and so is the hyponatremia, which is strongly suggestive of a hypervolemic hyponatremia. His edema is worsening with the 2.5% dextrose PD fluid (though he is starting to demonstrated some UF on each PD exchanges), and 2.% has not sufficiently improved the hyponatremia. So will have to increase the PD to 4.25% Dianeal 2L bags every 6 hours. Discussed with the floor RN to monitor for hyperglycemia. If his Hyponatremia and volume status further worsens, then I may arrange for HD tomorrow (he already has a RUE AVF in place). Discussed with the Hospitalists (2) Hyponatremia Current Visit: Yes Status: Acute See above (3) Pancytopenia Current Visit: Yes Status: Acute (4) Hypoalbuminemia Current Visit: Yes Status: Acute (5) Hypocalcemia Current Visit: Yes Status: Acute (6) Hyperphosphatemia Current Visit: No Status: Acute (7) Secondary hyperparathyroidism of renal origin Current Visit: Yes Status: Chronic Subjective Principal diagnosis: ESRD, Hyponatremia, Interval history: Pt was seen/examined earlier today. He did not affirm abd pain, exudates or erythema related symptoms with regard to the PD exchanges. He was by himself in the bedside chair. He voiced feeling more swollen today. His RN was in the room and showed me the PD exchange log with each dwell of the 2.5% removing some fluid (e.g. 2000 in and roughly 2800 out). Objective - Vital Signs Vital signs: Vital Signs Temp Pulse Resp BP Pulse Ox 04/12/17 09:04 97.4 F L 80 18 126/78 95 04/12/17 08:44 97.4 F L 80 18 126/78 99 04/12/17 08:36 97.4 F L 78 18 146/70 98 04/12/17 06:45 97.6 F 59 16 102/57 97 04/12/17 05:07 97.9 F 58 16 108/52 94 04/12/17 00:18 97.6 F 60 16 130/71 95 04/11/17 20:34 97.9 F 72 18 137/72 97 04/11/17 15:25 97.9 F 64 17 133/57 97 04/11/17 11:56 97.9 F 65 16 131/69 97 Intake and Output 04/11/17 04/12/17 04/12/17 23:59 07:59 15:59 Intake Total 480 / 480 677 / 677 Balance 480 / 480 677 / 677 Intake: Oral 480 / 480 480 / 480 Blood Product 197 / 197 Platelet Pheresis Lp Irr 197 / 197 1st Unit [id number] Other: Meal Dinner Breakfast Percent of Meal Consumed 100% Total Peritoneal Dialysis 400 -400 -850 Output Stool Size Large Stool Consistency loose liquid Stool Color Brown # Voids 1 # Bowel Movements 1 Weight 100.1 kg 100.7 kg 99.5 kg Blood Glucose* 126 121 Patient Weight 04/12/17 23:59 Weight 99.5 kg - General Appearance General appearance: Present: well-developed, well-nourished, appears started age EENT: Present: ATNC, PERRL, mucous membranes moist Respiratory: Present: rales Cardiology: Present: edema (tight 2-3+ pretibial pitting edema b/l ), regular rate, regular rhythm, normal S1, normal S2 Dialysis Vascular Access: Arteriovenous Fistula (RUE AVF. His PD catheter had a clean exit site.) thrill: Yes bruit: Yes Gastrointestinal: Present: normoactive bowel sounds, no tenderness, no guarding Integumentary: Present: warm and dry Neurologic: Present: no focal deficit, no asterixis, alert and oriented x3 Musculoskeletal: Present: no deformities, no clubbing Psychiatric: Present: mood/affect appropriate, cooperative - Lab 04/12/17 03:43 04/12/17 03:43 Most recent lab results Calcium 7.2 mg/dL (8.6-10.8) L 04/12/17 03:43 Phosphorus 4.5 mg/dL (2.3-4.7) 04/10/17 03:41 Magnesium 3.5 mg/dL (1.6-2.6) H 04/09/17 05:27 Consult Discharge Plan - Plan Referrals: Oseas Graham MD [Primary Care Provider] - 04/19/17 1:45 pm (With Dr Burleson )
[2017-04-12] MEDS: Dextrose 50 % in Water (Vial) 110 ML in Perit. Dialysis with Dex 1.5 % 2,000 ML PERITONEAL SCH ×2 (14:00→20:11)
[2017-04-12] MEDS: Gabapentin 300 MG CAPSULE PO SCH (20:31)
[2017-04-13] MEDS: Dextrose 50 % in Water (Vial) 110 ML in Perit. Dialysis with Dex 1.5 % 2,000 ML PERITONEAL SCH ×2 (02:22→08:14)
[2017-04-13] MEDS: Gentamicin Oint 15 GM TUBE TP SCH ×4 (04:43→22:22)
[2017-04-13 04:45] LABS: Immature Granulocytes % 1.6 % (0-4); Mean Corpuscular Volume 93.1 fL (83.0-100.0)
[2017-04-13 04:47] LABS: Basophils % 0.7 %; Eosinophils # 0.5 K/mcL (0.0-0.6); Hematocrit 31.2 % (37.5-50.1); Hemoglobin 10.4 g/dL (12.9-16.9); Immature Platelets 6.9 % (1.1-6.1); Lymphocytes # 0.4 K/mcL (0.6-4.6); Mean Corpuscular HGB Conc 33.3 g/dL (31.6-35.5); Mean Platelet Volume 10.8 fL (9.4-12.4); Monocytes # 0.3 K/mcL (0.0-1.3); Monocytes % 7.7 %; Neutrophils # 3.1 K/mcL (1.6-8.9); Red Blood Count 3.35 M/mcL (4.19-5.50); Red Cell Distribution Width 14.7 % (11.5-14.5)
[2017-04-13 04:50] LABS: Platelet Count 36 K/mcL (140-400)
[2017-04-13 05:00] LABS: Albumin 2.6 g/dL (3.5-5.0); Albumin/Globulin Ratio 0.7 (1.1-2.2); Bilirubin,Total 0.9 mg/dL (0.2-1.2); Calcium 7.5 mg/dL (8.6-10.8); Globulin 3.8 g/dL (2.4-3.5); Magnesium 2.6 mg/dL (1.6-2.6); Potassium 3.7 mEq/L (3.5-4.5); Total Protein 6.4 g/dL (6.0-8.3)
[2017-04-13 05:02] LABS: Calcium 7.5 mg/dL (8.6-10.8); Potassium 3.7 mEq/L (3.5-4.5)
[2017-04-13] MEDS: *HR* OxyCODONE Immed Rel 5 MG TABLET PO SCH ×4 (05:43→23:06)
[2017-04-13] MEDS: Calcium Acetate 667 MG CAPSULE PO SCH ×3 (08:03→18:40)
[2017-04-13] MEDS: Insulin LISPRO 300 UNITS/3 ML VIAL SQ SCH ×4 (08:04→22:18)
[2017-04-13] MEDS ORDERED: 0.9 % Sodium Chloride 250 ML IVC PRN (08:04)
[2017-04-13] MEDS: Iron Polysaccharide Complex 150 MG CAPSULE PO SCH (08:13)
--- NOTE | 2017-04-13 09:20 | Nephrology Progress Note ---
Date of Encounter: 04/13/17 Time of Encounter: 08:32 - Assessment and Plan (1) ESRD (end stage renal disease) Current Visit: No Status: Chronic Worsening hyponatremia continues despite the higher 4.25% dextrose. I reviewed the indications, risk, benefits vs risks of switching to HD today for both electrolyte mgt and UF. Will drain the current 4.25% dwell and resume 1.5% dextrose tonight. Perhaps the worsening hypervolemic hyponatremia may be from his known liver disease vs known CAD s/p valve replacement. I've updated verbally my Dialysate Na order to 133 to avoid overcorrection of the hyponatremia. (2) Hyponatremia Current Visit: Yes Status: Acute See above (3) Pancytopenia Current Visit: Yes Status: Acute (4) Hypoalbuminemia Current Visit: Yes Status: Acute (5) Hypocalcemia Current Visit: Yes Status: Acute (6) Hyperphosphatemia Current Visit: No Status: Acute (7) Secondary hyperparathyroidism of renal origin Current Visit: Yes Status: Chronic Subjective Principal diagnosis: ESRD, Hyponatremia, Interval history: Pt was seen/examined earlier today. He affirmed increasing edema and tightness to his LE and abd skin. His daughter was present in the room: she affirmed that he is having some occ episodes of confusion. Objective - Vital Signs Vital signs: Vital Signs Temp Pulse Resp BP Pulse Ox 04/13/17 06:40 97.5 F L 70 18 167/80 98 04/13/17 05:44 69 18 132/71 100 04/13/17 00:56 96.6 F L 63 20 134/78 100 04/12/17 23:52 97.3 F L 69 22 116/72 100 04/12/17 19:18 97.6 F 72 20 100/60 97 04/12/17 15:17 97.9 F 69 18 110/58 96 04/12/17 11:32 98.1 F 76 16 121/65 97 Intake and Output 04/12/17 04/13/17 04/13/17 23:59 07:59 15:59 Intake Total 120 / 120 3000 / 3000 0 / 0 Balance 120 / 120 3000 / 3000 0 / 0 Intake: Oral 120 / 120 3000 / 3000 0 / 0 Other: Meal Dinner NPO Percent of Meal Consumed 100% Total Peritoneal Dialysis -580 -2000 Output Stool Size Small Stool Consistency liquid Stool Color Brown Yellow # Bowel Movements 1 Weight 99.8 kg 101.3 kg Blood Glucose* 151 214 Patient Weight 04/13/17 23:59 Weight 101.3 kg - General Appearance Exam: General appearance: Present: well-developed, well-nourished, appears started age EENT: Present: ATNC, PERRL, mucous membranes moist Respiratory: Present: rales Cardiology: Present: edema (tight 2-3+ pretibial pitting edema b/l ), regular rate, regular rhythm, normal S1, normal S2 Dialysis Vascular Access: Arteriovenous Fistula (RUE AVF. His PD catheter had a clean exit site.) thrill: Yes bruit: Yes Gastrointestinal: Present: normoactive bowel sounds, no tenderness, no guarding Integumentary: Present: warm and dry Neurologic: Present: no focal deficit, no asterixis, alert and oriented x3 Musculoskeletal: Present: no deformities, no clubbing Psychiatric: Present: mood/affect appropriate, cooperative - Lab 04/13/17 04:17 04/13/17 04:17 Most recent lab results Calcium 7.5 mg/dL (8.6-10.8) L 04/13/17 04:17 Phosphorus 4.5 mg/dL (2.3-4.7) 04/10/17 03:41 Magnesium 2.6 mg/dL (1.6-2.6) 04/13/17 04:17 Consult Discharge Plan - Plan Referrals: Oseas Graham MD [Primary Care Provider] - 04/19/17 1:45 pm (With Dr Burleson )
[2017-04-13] MEDS ORDERED: Albumin 25% 25gram/100mL 25 GM/100 ML IV.SOLN IVPB ONE (10:10)
[2017-04-13] MEDS ORDERED: Albumin 25% 12.5gm/50mL 25.0 GM/100 ML IV.SOLN ONE (10:20)
--- NOTE | 2017-04-13 11:20 | Internal Med Progress Note ---
<Shannan Oswald - Last Filed: 04/13/17 13:59> Date of Encounter: 04/13/17 Time of Encounter: 11:18 - Assessment and plan (1) ESRD (end stage renal disease) on dialysis Current Visit: Yes Status: Chronic Assessment and plan: Dialysis is being managed by Nephrology. Hemodialysis today. (2) Hyponatremia Current Visit: Yes Status: Acute Assessment and plan: Sodium is still decreasing. Nephrology is treating the hypervolemic hyponatremia with hemodialysis. Which could be due to known liver disease vs CAD s/p valve replacement. (3) Pancytopenia Current Visit: Yes Status: Chronic Assessment and plan: Noted to have chronic leukopenia and thrombocytopenia along with acute anemia, which could be related to underlying hepatocellular carcinoma and cirrhosis. No active bleeding at this time. (4) Anemia Current Visit: Yes Status: Chronic Assessment and plan: Hemoglobin improving, today is 10.4 from yesterday 8.8 . EGD and colonoscopy are scheduled to be performed by Dr. Silveira today to rule out occult GI bleed. Qualifiers: Anemia type: due to chronic kidney disease Chronic kidney disease stage: on chronic dialysis Qualified Code(s): N18.6 - End stage renal disease; D63.1 - Anemia in chronic kidney disease; Z99.2 - Dependence on renal dialysis (5) Liver cirrhosis Current Visit: Yes Status: Chronic Qualifiers: Hepatic cirrhosis type: unspecified hepatic cirrhosis Ascites presence: with ascites Qualified Code(s): K74.60 - Unspecified cirrhosis of liver (6) Liver cancer Current Visit: Yes Status: Chronic Assessment and plan: Hepatocellular carcinoma Qualifiers: Liver malignancy type: hepatocellular carcinoma Qualified Code(s): C22.0 - Liver cell carcinoma (7) Hypoalbuminemia Current Visit: Yes Status: Acute Assessment and plan: Nepro shakes ordered for patient per recommendation of nephroogy. - Subjective Interval history: Patient was laying down during his hemodialysis treatment. He has no complaints today. He denies chest pain, shortness of breath, lightheaded, nausea, vomiting. - Constitutional Vitals: Temp Pulse Resp BP Pulse Ox 97.5 F L 70 18 105/50 98 04/13/17 11:10 04/13/17 11:10 04/13/17 11:10 04/13/17 11:10 04/13/17 06:40 General appearance: Present: A&O X 3, pleasant, no acute distress, answers questions appropriately - Head Head exam: Present: atraumatic, normal inspection - Eye Eye exam: Present: normal appearance, conjuntiva pink. Absent: scleral icterus - Respiratory Respiratory exam: Present: CTAB. Absent: accessory muscle use, rales, rhonchi, wheezes - Cardiovascular Cardiovascular exam: Present: RRR. Absent: clicks, gallop - Extremities Exam Extremities exam: Present: pedal edema, warm, radial pulses palpable and symetrical. Absent: mottling - Expanded Lower Extremities Exam Lower Leg exam: Present: ecchymosis, swelling. Absent: crepitus, tenderness - Neurological Exam Neurological exam: Present: alert. Absent: facial droop, speech deficit - Skin Skin exam: Present: dry, intact Internal Medicine: Result - Labs CBC & Chem 7: 04/13/17 04:17 04/13/17 04:17 Labs: Short CBC 04/13/17 Range/Units 04:17 WBC 4.4 D (4.3-11.1) K/mcL Hgb 10.4 L D (12.9-16.9) g/dL Hct 31.2 L (37.5-50.1) % Plt Count 36 L (140-400) K/mcL Neutrophils # 3.1 (1.6-8.9) K/mcL BMP 04/13/17 04/13/17 04:17 04:17 Sodium 123 L 123 L Potassium 3.7 3.7 Chloride 87 L 87 L Carbon Dioxide 26 26 BUN 48 H 48 H Creatinine 8.08 H 8.19 H Glucose 257 H 259 H Calcium 7.5 L 7.5 L Liver Function 04/13/17 Range/Units 04:17 Total Bilirubin 0.9 (0.2-1.2) mg/dL AST 59 H (5-34) Units/L ALT 41 (0-55) Units/L Alkaline Phosphatase 245 H (38-126) Units/L Albumin 2.6 L (3.5-5.0) g/dL Consult Discharge Plan - Plan Referrals: Oseas Graham MD [Primary Care Provider] - 04/19/17 1:45 pm (With Dr Burleson ) <Harjinder Gold - Last Filed: 04/13/17 18:19> Date of Encounter: 04/13/17 - Constitutional Vitals: Temp Pulse Resp BP Pulse Ox 97.7 F 71 18 102/66 97 04/13/17 15:13 04/13/17 15:13 04/13/17 15:13 04/13/17 15:13 04/13/17 15:13 Internal Medicine: Result - Labs CBC & Chem 7: 04/13/17 04:17 04/13/17 04:17 Labs: Short CBC 04/13/17 Range/Units 04:17 WBC 4.4 D (4.3-11.1) K/mcL Hgb 10.4 L D (12.9-16.9) g/dL Hct 31.2 L (37.5-50.1) % Plt Count 36 L (140-400) K/mcL Neutrophils # 3.1 (1.6-8.9) K/mcL BMP 04/13/17 04/13/17 04:17 04:17 Sodium 123 L 123 L Potassium 3.7 3.7 Chloride 87 L 87 L Carbon Dioxide 26 26 BUN 48 H 48 H Creatinine 8.08 H 8.19 H Glucose 257 H 259 H Calcium 7.5 L 7.5 L Liver Function 04/13/17 Range/Units 04:17 Total Bilirubin 0.9 (0.2-1.2) mg/dL AST 59 H (5-34) Units/L ALT 41 (0-55) Units/L Alkaline Phosphatase 245 H (38-126) Units/L Albumin 2.6 L (3.5-5.0) g/dL - Attending Attestation I examined this patient and my medical decision-making was reviewed with the Resident Physician, Dr Oswald. I agree with the documented findings, disposition and treatment plan as described except to the extent set forth below. I evaluated patient while he was receiving hemodialysis. He reports mild cramping in the right upper extremity. He tolerated dialysis well with 4 L of fluid removal. Abdomen is soft nontender nondistended. Plan: Continue with hemodialysis. Colonoscopy tomorrow to workup anemia. Check sodium level in the morning, this is expected to improve with hemodialysis.
[2017-04-13 11:25] LABS: Hepatitis B Surface Antigen Nonreactive (Nonreactive)
[2017-04-13 11:27] LABS: Hepatitis B Surface Antibody 69.89 mIU/mL
[2017-04-13] MEDS ORDERED: 0.9 % Sodium Chloride 1,000 ML ONE (14:04)
[2017-04-13] MEDS: Insulin DETEMIR 100 UNIT/ML X5UNITS SQ SCH ×2 (14:30→22:18)
[2017-04-13] MEDS ORDERED: Polyethylene Glycol 3350 255 GM POWDER PO ONE (15:18)
[2017-04-13] MEDS: Perit. Dialysis with Dex 1.5 % 2,000 ML PERITONEAL SCH (22:17)
[2017-04-13] MEDS: Gabapentin 300 MG CAPSULE PO SCH (22:18)
[2017-04-14] MEDS: Perit. Dialysis with Dex 1.5 % 2,000 ML PERITONEAL SCH ×4 (03:12→20:06)
[2017-04-14] MEDS: Gentamicin Oint 15 GM TUBE TP SCH ×4 (03:13→21:09)
[2017-04-14] MEDS: *HR* OxyCODONE Immed Rel 5 MG TABLET PO SCH ×3 (05:48→17:04)
[2017-04-14 06:54] LABS: Eosinophils # 0.3 K/mcL (0.0-0.6); Eosinophils % 10.9 %; Hemoglobin 9.1 g/dL (12.9-16.9)
[2017-04-14 06:56] LABS: Basophils % 0.7 %; Hematocrit 27.3 % (37.5-50.1); Immature Platelets 3.8 % (1.1-6.1); Lymphocytes # 0.4 K/mcL (0.6-4.6); Lymphocytes % 11.9 %; Mean Corpuscular HGB Conc 33.3 g/dL (31.6-35.5); Mean Corpuscular Hemoglobin 31.7 pg (28.0-33.3); Mean Corpuscular Volume 95.1 fL (83.0-100.0); Mean Platelet Volume 10.7 fL (9.4-12.4); Monocytes # 0.4 K/mcL (0.0-1.3); Monocytes % 13.9 %; Neutrophils # 1.9 K/mcL (1.6-8.9); Red Blood Count 2.87 M/mcL (4.19-5.50); Red Cell Distribution Width 15.4 % (11.5-14.5); Segmented Neutrophils % 61.6 %
[2017-04-14 07:10] LABS: Platelet Count 25 K/mcL (140-400)
[2017-04-14 07:21] LABS: Albumin 2.7 g/dL (3.5-5.0); Albumin/Globulin Ratio 0.9 (1.1-2.2); Bilirubin,Total 0.7 mg/dL (0.2-1.2); Calcium 7.4 mg/dL (8.6-10.8); Globulin 3.1 g/dL (2.4-3.5); Potassium 3.5 mEq/L (3.5-4.5); Total Protein 5.8 g/dL (6.0-8.3)
[2017-04-14] MEDS: Insulin LISPRO 300 UNITS/3 ML VIAL SQ SCH ×4 (07:55→21:51)
[2017-04-14] MEDS: Iron Polysaccharide Complex 150 MG CAPSULE PO SCH (07:55)
[2017-04-14] MEDS: Calcium Acetate 667 MG CAPSULE PO SCH ×3 (07:56→17:03)
[2017-04-14 08:12] LABS: Platelet Estimate Decreased (Normal)
[2017-04-14] MEDS ORDERED: 0.9 % Sodium Chloride 250 ML IVC PRN (08:25)
--- NOTE | 2017-04-14 10:00 | Internal Med Progress Note ---
<Shannan Oswald - Last Filed: 04/14/17 09:58> Date of Encounter: 04/14/17 Time of Encounter: 09:58 - Assessment and plan (1) ESRD (end stage renal disease) on dialysis Current Visit: Yes Status: Chronic Assessment and plan: Dialysis is being managed by Nephrology. Hemodialysis was well tolerated by the patient, 4 L was removed. Hyponatremia has shown improvement, sodium level is currently 131. Will continue to monitor. (2) Hyponatremia Current Visit: Yes Status: Acute Assessment and plan: Hyponatremia has improved from yesterday's hemodialysis. Today it is 131 and yesterday was 123. Nephrology is helping to manage treatment. We will continue to monitor. (3) Pancytopenia Current Visit: Yes Status: Chronic Assessment and plan: Platelet count decreased to 25 from yesterday's 36. A transfusion of platelets was ordered this morning. Noted to have chronic leukopenia and thrombocytopenia along with acute anemia, which could be related to underlying hepatocellular carcinoma and cirrhosis. No active bleeding at this time. (4) Anemia Current Visit: Yes Status: Chronic Assessment and plan: Hemoglobin today is 9.1 and yesterday was 10.4. EGD and colonoscopy are scheduled to be performed by Dr. Silveira today to rule out occult GI bleed. Qualifiers: Anemia type: due to chronic kidney disease Chronic kidney disease stage: on chronic dialysis Qualified Code(s): N18.6 - End stage renal disease; D63.1 - Anemia in chronic kidney disease; Z99.2 - Dependence on renal dialysis (5) Liver cirrhosis Current Visit: Yes Status: Chronic Qualifiers: Hepatic cirrhosis type: unspecified hepatic cirrhosis Ascites presence: with ascites Qualified Code(s): K74.60 - Unspecified cirrhosis of liver (6) Liver cancer Current Visit: Yes Status: Chronic Assessment and plan: Hepatocellular carcinoma Qualifiers: Liver malignancy type: hepatocellular carcinoma Qualified Code(s): C22.0 - Liver cell carcinoma (7) Hypoalbuminemia Current Visit: Yes Status: Acute Assessment and plan: Albumin has improved some and is is 2.7 today. Nepro shakes ordered for patient per recommendation of nephroogy. - Subjective Interval history: Patient was comfortably laying down watching television, waiting on scheduled colonoscopy today. States hemodialysis yesterday went well. He has no complaints today. He denies chest pain, shortness of breath, lightheaded, nausea, vomiting. - Constitutional Vitals: Temp Pulse Resp BP Pulse Ox 98.0 F 62 16 121/97 100 04/14/17 07:05 04/14/17 07:05 04/14/17 07:05 04/14/17 07:05 04/14/17 07:05 General appearance: Present: A&O X 3, pleasant, no acute distress, answers questions appropriately - Head Head exam: Present: atraumatic, normocephalic - Eye Eye exam: Present: PERRL, conjuntiva pink, sclera anicteric - Respiratory Respiratory exam: Present: CTAB. Absent: accessory muscle use, chest wall tenderness, rales, rhonchi, wheezes - Cardiovascular Cardiovascular exam: Present: RRR, +S1, +S2. Absent: clicks, gallop, rubs, systolic murmur - GI/Abdominal GI/Abdominal exam: Present: normal bowel sounds, soft, no peritoneal signs. Absent: distended, guarding, tenderness - Extremities Exam Extremities exam: Present: pedal edema, warm, radial pulses palpable and symetrical. Absent: calf tenderness, cyanotic - Expanded Lower Extremities Exam Lower Leg exam: Present: swelling. Absent: crepitus, tenderness - Neurological Exam Neurological exam: Present: CN II-XII intact, oriented X3, no focal deficits. Absent: pronater drift, facial droop, speech deficit - Skin Skin exam: Present: dry, intact Internal Medicine: Result - Labs CBC & Chem 7: 04/14/17 05:28 04/14/17 05:28 Labs: Short CBC 04/14/17 Range/Units 05:28 WBC 3.0 L (4.3-11.1) K/mcL Hgb 9.1 L (12.9-16.9) g/dL Hct 27.3 L (37.5-50.1) % Plt Count 25 L* (140-400) K/mcL Neutrophils # 1.9 (1.6-8.9) K/mcL BMP 04/14/17 05:28 Sodium 131 L D Potassium 3.5 Chloride 95 L Carbon Dioxide 26 BUN 23 D Creatinine 5.89 H Glucose 126 H Calcium 7.4 L Liver Function 04/14/17 Range/Units 05:28 Total Bilirubin 0.7 (0.2-1.2) mg/dL AST 42 H (5-34) Units/L ALT 34 (0-55) Units/L Alkaline Phosphatase 202 H (38-126) Units/L Albumin 2.7 L (3.5-5.0) g/dL Consult Discharge Plan - Plan Referrals: Oseas Graham MD [Primary Care Provider] - 04/19/17 1:45 pm (With Dr Burleson ) <Harjinder Gold - Last Filed: 04/14/17 20:05> Date of Encounter: 04/14/17 - Constitutional Vitals: Temp Pulse Resp BP Pulse Ox 98.3 F 63 18 108/53 99 04/14/17 16:02 04/14/17 16:02 04/14/17 16:02 04/14/17 16:02 04/14/17 16:02 Internal Medicine: Result - Labs CBC & Chem 7: 04/14/17 05:28 04/14/17 05:28 Labs: Short CBC 04/14/17 Range/Units 05:28 WBC 3.0 L (4.3-11.1) K/mcL Hgb 9.1 L (12.9-16.9) g/dL Hct 27.3 L (37.5-50.1) % Plt Count 25 L* (140-400) K/mcL Neutrophils # 1.9 (1.6-8.9) K/mcL BMP 04/14/17 05:28 Sodium 131 L D Potassium 3.5 Chloride 95 L Carbon Dioxide 26 BUN 23 D Creatinine 5.89 H Glucose 126 H Calcium 7.4 L Liver Function 04/14/17 Range/Units 05:28 Total Bilirubin 0.7 (0.2-1.2) mg/dL AST 42 H (5-34) Units/L ALT 34 (0-55) Units/L Alkaline Phosphatase 202 H (38-126) Units/L Albumin 2.7 L (3.5-5.0) g/dL - Attending Attestation I examined this patient and my medical decision-making was reviewed with the Resident Physician, Dr Oswald. I agree with the documented findings, disposition and treatment plan as described except to the extent set forth below. Patient did not receive his colonoscopy today due to thrombocytopenia. We will transfuse 2 units of platelets tonight and plan for colonoscopy in the morning. He is due for hemodialysis tomorrow.
--- NOTE | 2017-04-14 10:44 | Anesthesia Evaluation PreOp ---
Date of Encounter: 04/14/17 Time of Encounter: 10:42 - Past History Planned Operation: EGD/Colonoscopy Cardiac History: CHF, HTN, Hyperlipidemia, Cardiac Stent, Other (Hx severe Aortic stenosis(AVR 05/23), Echo 01/24/15 EF - 65%) Pulmonary History: Other (Anxiety/depression, Lumbar DDD, L4-S1 facet Arthropathy) Other Medical History: Hepatic (Cirrhosis, hepatocellular CA), Renal (ESRD), Diabetes Type II, Other (Chronic Thromboctopenia) Anesthesia History: No Prior Anesthetic Complications, Past Anesthesia (GB, Cataracts, skin CA x 2, ARR replacement, R. Arm Fistula, Peritoneal Dialysis Catheter, Liver Ablation) Alcohol Use: none Drug use: none Medications and Allergies Aspirin 81 mg PO DAILY 05/19/15 [History] Calcium Acetate [Phoslo] 1,334 mg PO TID 05/19/15 [History] Gabapentin [Neurontin] 300 mg PO HS 05/19/15 [History] Magnesium Oxide [Magnesium] 400 mg PO DAILY 05/19/15 [History] Simvastatin [Zocor] 10 mg PO HS 05/19/15 [History] Tamsulosin [Flomax] 0.4 mg PO BID 05/19/15 [History] Omeprazole [PriLOSEC] 40 mg PO DAILY 11/20/15 [History] OxyCODONE Immed Rel [Roxicodone 5 MG] 5 mg PO Q6HR 11/20/15 [History] Pramipexole [Mirapex] 0.25 mg PO HS 11/20/15 [History] Albuterol Sulfate [Albuterol Inhaler] 2 puff IH Q4HR #2 hfa.aer.ad 11/23/15 [Rx] Alendronate Sodium [Fosamax] 70 mg PO QWEEK 04/08/17 [History] Carvedilol [Coreg] 6.25 mg PO BID 04/08/17 [History] Cholecalciferol (D-3) [Vitamin D] 1,000 unit PO DAILY 04/08/17 [History] Iron Polysaccharide Complex [Ferrex 150] 150 mg PO DAILY 04/08/17 [History] Multivitamin [Multi-Day Vitamins] 1 each PO DAILY 04/08/17 [History] Nitroglycerin [Nitrostat] 0.4 mg SL Q5M PRN 04/08/17 [History] Allergies linezolid [From Zyvox] Allergy (Verified 04/08/17 13:05) Weakness trimethoprim [From Bactrim] Allergy (Verified 04/08/17 13:05) Weakness - Meds/Allergy Pre-op Review Medications Reviewed: Yes Allergies Reviewed: Yes Beta Blockers on Current Med List: Yes If Beta Blockers taken, Date/Time (Last Dose taken): 04/14/17 @ 07:56 Anesthesia Results - Labs 04/14/17 05:28 04/14/17 05:28 - Imaging EKG: image reviewed (SR, Lateral Ischemis) Anesthesia Exam O2 Sat Weight 96.6 kg Weight 96.6 kg Weight 96.7 kg O2 Sat by Pulse Oximetry 100 O2 Sat by Pulse Oximetry 100 O2 Sat by Pulse Oximetry 99 O2 Sat by Pulse Oximetry 97 O2 Sat by Pulse Oximetry 97 Vital Signs Temp Pulse Resp BP Pulse Ox 98.3 F 157 22 113/67 97 04/08/17 13:06 04/08/17 13:06 04/08/17 13:06 04/08/17 13:06 04/08/17 13:06 Height: 5'8'' Weight: 212# NPO (# of Hours): > 8 hrs Pain Scale: 0 Pain Scale Used: Numeric (1 - 10) - HEENT Pupil (Motor): Pupils equal, EOMI Mallampati: II Teeth: Edentulous Oral Opening: Greater than 3 - PSYCHIATRY ADULT PHYSICIAN LOC: Oriented PSYCHIATRY ADULT PHYSICIAN Motor: Normal RUE, Normal LUE, Normal RLE, Normal LLE, Normal Face PSYCHIATRY ADULT PHYSICIAN Sensory: Normal: RUE, LUE, RLE, LLE, Face - Cardiac Rhythm: Regular Murmur: None JVD: No Carotid Bruit: No - Pulmonary Breath Sounds: bilateral Clear Respiratory Effort: Symmetrical Anesthesia Assess/Plan ASA Score: 4 Anesthetic Plan: MAC Autologous Blood: Yes Monitoring Plan: Standard Monitors Recovery Plan: PACU
[2017-04-14] MEDS ORDERED: 0.9 % Sodium Chloride 500 ML IVC SCH (11:15)
--- NOTE | 2017-04-14 12:21 | Event Note ---
<Katelyn Gauthier - Last Filed: 04/14/17 12:22> Date of Encounter: 04/14/17 Time of Encounter: 12:19 Will not be able to safely complete the patient's EGD/Colonoscopy with Dr. Silveira today due to platelet count of 25. The risks of the procedure out way the benefits with a platelet count this low. Patient has received 4 packs of platelets starting on 04/10/17 and no improvement noted in platelet count. Patient given clear liquid diet. Consider further recommendations from hematology. <Aj Silveira - Last Filed: 04/14/17 20:24> Date of Encounter: 04/14/17 The patient was seen and evaluated. The persistent thrombocytopenia precludes all but emergency endoscopy. The patient will need to have stable platelet count prior to endoscopic procedure. Aj Silveira MD FACS
[2017-04-14] MEDS: Insulin DETEMIR 100 UNIT/ML X5UNITS SQ SCH ×2 (12:31→21:48)
--- NOTE | 2017-04-14 12:49 | Nephrology Progress Note ---
Date of Encounter: 04/14/17 Time of Encounter: 08:45 - Assessment and Plan (1) ESRD (end stage renal disease) Current Visit: No Status: Chronic Yesterday the HD helped to correct his hypervolemic hyponatremia. Resuming PD today. Initially I considered HD for further UF and clearance but since GI/Gen surgery has been considering endoscopy, will hold off on HD. Continue PD q6hr (2) Hyponatremia Current Visit: Yes Status: Acute See above (3) Pancytopenia Current Visit: Yes Status: Acute (4) Hypoalbuminemia Current Visit: Yes Status: Acute (5) Hypocalcemia Current Visit: Yes Status: Acute (6) Hyperphosphatemia Current Visit: No Status: Acute (7) Secondary hyperparathyroidism of renal origin Current Visit: Yes Status: Chronic Subjective Principal diagnosis: ESRD, Hyponatremia, Interval history: Pt was seen/examined earlier today. He affirmed increasing edema and tightness to his LE and abd skin. He completed HD yesterday without any reported cramping. He was going to have a colonoscopy today so HD but it was postponed. Objective - Vital Signs Vital signs: Vital Signs Temp Pulse Resp BP Pulse Ox 04/14/17 12:18 97.8 F 63 16 108/63 100 04/14/17 12:14 97.7 F 69 16 121/67 98 04/14/17 11:06 63 14 93/53 100 04/14/17 10:44 97.7 F 63 14 93/53 100 04/14/17 07:05 98.0 F 62 16 121/97 100 04/14/17 03:25 97.9 F 69 17 139/66 100 04/14/17 00:29 97.7 F 66 18 107/62 99 04/13/17 19:08 97.7 F 69 17 112/56 97 04/13/17 15:13 97.7 F 71 18 102/66 97 04/13/17 13:43 98.3 F 20 141/64 04/13/17 13:10 126/66 04/13/17 12:55 119/64 Intake and Output 04/13/17 04/14/17 04/14/17 23:59 07:59 15:59 Intake Total 600 / 600 250 / 250 Balance 600 / 600 250 / 250 Intake: Oral 600 / 600 Blood Product 250 / 250 Platelet Pheresis Lp Irr 250 / 250 1st Unit [id number] Other: Meal Dinner Total Peritoneal Dialysis 1800 0 -450 Output Stool Size Moderate Stool Consistency liquid Stool Color Yellow Bright Red Blood # Bowel Movements 1 Weight 96.7 kg 96.6 kg 96.6 kg Blood Glucose* 186 127 186 Patient Weight 04/14/17 23:59 Weight 96.6 kg - General Appearance Exam: General appearance: Present: well-developed, well-nourished, appears started age EENT: Present: ATNC, PERRL, mucous membranes moist Respiratory: Present: rales Cardiology: Present: edema (tight 2-3+ pretibial pitting edema b/l ), regular rate, regular rhythm, normal S1, normal S2 Dialysis Vascular Access: Arteriovenous Fistula (RUE AVF. His PD catheter had a clean exit site.) thrill: Yes bruit: Yes Gastrointestinal: Present: normoactive bowel sounds, no tenderness, no guarding Integumentary: Present: warm and dry Neurologic: Present: no focal deficit, no asterixis, alert and oriented x3 Musculoskeletal: Present: no deformities, no clubbing Psychiatric: Present: mood/affect appropriate, cooperative - Lab 04/14/17 05:28 04/14/17 05:28 Most recent lab results Calcium 7.4 mg/dL (8.6-10.8) L 04/14/17 05:28 Phosphorus 4.5 mg/dL (2.3-4.7) 04/10/17 03:41 Magnesium 2.0 mg/dL (1.6-2.6) 04/14/17 05:28 Consult Discharge Plan - Plan Referrals: Oseas Graham MD [Primary Care Provider] - 04/19/17 1:45 pm (With Dr Burleson )
--- NOTE | 2017-04-14 19:57 | Oncology Inp Progress Note ---
Date of Encounter: 04/14/17 Time of Encounter: 19:56 Oncology: Subj Interval history: History of present illness: Patient seen and examined at bedside. The patient's chart review for details of ongoing care by hospital team. Much appreciated. Per my discussion with the hospital team earlier in the day, patient is to maintain platelet count of 50,000 or greater for planned endoscopy. Patient himself is feeling well. No new physical complaints. Continues on renal replacement per nephrology. I reviewed the most recent reported appreciate input. No other new issues. Review of systems: 12 point review of systems as noted above.All other systems are negative: Physical exam: Selected Entries 04/14/17 16:02 Temperature 98.3 F Pulse Rate 63 Respiratory Rate 18 Blood Pressure 108/53 O2 Sat by Pulse Oximetry 99 GENERAL: Alert and oriented, comfortable appearing. Mental Status: Affect appropriate for circumstances Skin: No rashes or petechiae. No evidence of skin malignancy Extremities: No edema. No calf swelling or tenderness. No joint deformity. Neurologic: Global weakness but no focal sensorimotor abnormalities. Results: Laboratory Last Values WBC 3.0 K/mcL (4.3-11.1) L 04/14/17 05:28 RBC 2.87 M/mcL (4.19-5.50) L 04/14/17 05:28 Hgb 9.1 g/dL (12.9-16.9) L 04/14/17 05:28 Hct 27.3 % (37.5-50.1) L 04/14/17 05:28 MCV 95.1 fL (83.0-100.0) 04/14/17 05:28 MCH 31.7 pg (28.0-33.3) 04/14/17 05:28 MCHC 33.3 g/dL (31.6-35.5) 04/14/17 05:28 RDW 15.4 % (11.5-14.5) H 04/14/17 05:28 Plt Count 25 K/mcL (140-400) L* 04/14/17 05:28 MPV 10.7 fL (9.4-12.4) 04/14/17 05:28 Reticulocyte # 0.12 M/mcL (0.05-0.10) H 04/10/17 08:40 Immature Gran % 1.0 % (0-4) 04/14/17 05:28 Seg Neutrophils % 61.6 % 04/14/17 05:28 Lymphocytes % 11.9 % 04/14/17 05:28 Monocytes % 13.9 % 04/14/17 05:28 Eosinophils % 10.9 % 04/14/17 05:28 Basophils % 0.7 % 04/14/17 05:28 Neutrophils # 1.9 K/mcL (1.6-8.9) 04/14/17 05:28 Lymphocytes # 0.4 K/mcL (0.6-4.6) L 04/14/17 05:28 Monocytes # 0.4 K/mcL (0.0-1.3) 04/14/17 05:28 Eosinophils # 0.3 K/mcL (0.0-0.6) 04/14/17 05:28 Basophils # 0.0 K/mcL (0.0-0.2) 04/14/17 05:28 Platelet Estimate Decreased (Normal) L 04/14/17 05:28 Immature Plt Fraction 3.8 % (1.1-6.1) 04/14/17 05:28 Percent Retic 5.2 % (1.6-2.8) H 04/10/17 08:40 Immature Retic Fraction 32.0 % (11.0-38.0) 04/10/17 08:40 Retic Hgb Equivalent 34.2 pg (28.61-36.33) 04/10/17 08:40 Haptoglobin 139 mg/dL (30-200) 04/10/17 08:40 Sodium 131 mEq/L (136-145) L D 04/14/17 05:28 Potassium 3.5 mEq/L (3.5-4.5) 04/14/17 05:28 Chloride 95 mEq/L (98-109) L 04/14/17 05:28 Carbon Dioxide 26 mEq/L (19-29) 04/14/17 05:28 BUN 23 mg/dL (8-26) D 04/14/17 05:28 Creatinine 5.89 mg/dL (0.72-1.25) H 04/14/17 05:28 Est GFR ( Amer) 11 (> 60) L 04/14/17 05:28 Est GFR (Non-Af Amer) 9 (> 60) L 04/14/17 05:28 BUN/Creatinine Ratio 4 (6-26) L 04/14/17 05:28 Glucose 126 mg/dL (70-99) H 04/14/17 05:28 POC Glucose 186 (58-89) H 04/13/17 20:36 Est Mean Plasma Glucose 137 mg/dl 04/08/17 13:57 Hemoglobin A1c 6.4 % (-5.6) H 04/08/17 13:57 Calculated Osmolality 277 (280-300) L 04/14/17 05:28 Uric Acid 6.1 mg/dL (3.5-7.2) 04/11/17 04:58 Calcium 7.4 mg/dL (8.6-10.8) L 04/14/17 05:28 Ionized Calcium 0.92 mmol/L (1.15-1.35) L 04/10/17 03:41 Phosphorus 4.5 mg/dL (2.3-4.7) 04/10/17 03:41 Magnesium 2.0 mg/dL (1.6-2.6) 04/14/17 05:28 Iron 58 mcg/dL (65-175) L 04/10/17 08:40 % Saturation 17 % (20-55) L 04/10/17 08:40 Transferrin 249 mg/dL (174-364) 04/10/17 08:40 Ferritin 91 ng/ml (22-275) 04/10/17 08:40 Total Bilirubin 0.7 mg/dL (0.2-1.2) 04/14/17 05:28 AST 42 Units/L (5-34) H 04/14/17 05:28 ALT 34 Units/L (0-55) 04/14/17 05:28 Alkaline Phosphatase 202 Units/L (38-126) H 04/14/17 05:28 Lactate Dehydrogenase 185 Units/L (159-327) 04/10/17 08:40 Troponin I 0.01 ng/mL (0-0.03) 04/08/17 13:57 Serum Total Protein 5.8 g/dL (6.0-8.3) L 04/14/17 05:28 Albumin 2.7 g/dL (3.5-5.0) L 04/14/17 05:28 Globulin 3.1 g/dL (2.4-3.5) 04/14/17 05:28 Albumin/Globulin Ratio 0.9 (1.1-2.2) L 04/14/17 05:28 Vitamin B12 1488 pg/mL (213-816) H 04/10/17 08:40 Folate 13.6 ng/mL (7.0-31.4) 04/10/17 08:40 Urine Color Yellow (Yellow) 04/08/17 16:22 Urine Clarity Slightly Hazy (Clear) 04/08/17 16:22 Urine pH 5.0 pH Units (5.0-8.0) 04/08/17 16:22 Ur Specific [place] > 1.030 (1.010-1.025) H 04/08/17 16:22 Urine Protein Trace mg/dL (Neg-Trace) 04/08/17 16:22 Urine Glucose (UA) 500 mg/dL (Normal) H 04/08/17 16:22 Urine Ketones Negative mg/dL (Negative) 04/08/17 16:22 Urine Blood Negative (Negative) 04/08/17 16:22 Urine Nitrite Negative (Negative) 04/08/17 16:22 Urine Bilirubin Small (Negative) H 04/08/17 16:22 Urine Urobilinogen Normal mg/dL (Normal) 04/08/17 16:22 Ur Leukocyte Esterase Trace (Negative) H 04/08/17 16:22 Urine Microscopic RBC 5-15 per hpf (0-3) H 04/08/17 16:22 Urine Microscopic WBC 5-15 per hpf (0-3) H 04/08/17 16:22 Ur Squamous Epith Cells Moderate per lpf (None-Few) H 04/08/17 16:22 Urine Bacteria None Seen per hpf (None-Few) 04/08/17 16:22 Hyaline Casts None Seen per lpf (None-Few) 04/08/17 16:22 Ur Culture Indicated? YES (NO) A 04/08/17 16:22 Urine Osmolality 296 mOsm/kg (300-1090) L 04/10/17 17:37 Peritoneal Appearance CLEAR (Clear) 04/09/17 05:00 Peritoneal Volume 40.0 mL 04/09/17 05:00 Peritoneal RBC < 0.002 M/mcL (0.000-0.002) 04/09/17 05:00 Periton Tot Nuc Cells 13 TNC/mcL (0-300) 04/09/17 05:00 Periton Neutrophils 4.5 % 04/09/17 05:00 Periton Band Neuts Test Not Performed 04/09/17 05:00 Peritoneal Eosinophils Test Not Performed 04/09/17 05:00 Peritoneal Basophils Test Not Performed 04/09/17 05:00 Periton Lymphocytes % 10.4 % 04/09/17 05:00 Periton Monocytes % 9.0 % 04/09/17 05:00 Periton Other Cells % 76.1 % 04/09/17 05:00 Stool Occult Blood Positive (Negative) A 04/13/17 21:50 Hep Bs Antigen Nonreactive (Nonreactive) 04/13/17 09:13 Hep Bs Antibody 69.89 mIU/mL 04/13/17 09:13 Blood Type A POSITIVE 04/12/17 04:57 Antibody Screen NEGATIVE 04/12/17 04:57 Crossmatch See Detail 04/08/17 17:20 Impression/recommendations: Pancytopenia: Likely multifactorial. Contribution from underlying liver cirrhosis. Status of his HCC is unclear and may be contributing as well. Occult blood loss remains a consideration and he is scheduled for endoscopy in the near future. For his anemia, recommend transfuse 2 additional units of PRBC to maintain a hemoglobin of 8, greater until we're able to exclude the possibility of ongoing blood loss. I appreciate input from Dr. Silveira. Regarding thrombocytopenia: I agree with needs to maintain platelet count of 50, 000 or greater ahead of his planned endoscopies. I think this can be accomplished by transfusing 2 units of pheresed platelets today and repeating platelet count 1 hour after second unit of platelets. Will also recommend coag panel (PT PTT INR). Transfuse FFP if INR greater than 1.5. His leukopenia is of mild severity and we can continue to observe at this time. If he has any evidence of infection, he may need growth factor support to improve his WBC count. Hepatocellular carcinoma: He has had local therapy to what appears to be limited liver involvement. I do not have records of his recent treatments which were completely [place] state. By his report, he appears to have poor follow-up for his hepatocellular carcinoma. He has had difficulty keeping up with his appointments in [place] due to transportation issues and the complexity of his chronic comorbidities. Plse obtain abdominal imaging (abdomen ultrasound or CT) and alpha-fetoprotein level for evaluation of his HCC. He is interested in reestablishing with our practice for ongoing management of his HCC and cytopenias and we will make him an appointment with Dr. Barillas after his discharge from hospital. Cirrhosis: Etiology of his cirrhosis is unclear what appears to be relatively severe. Chronic pancytopenia was previously been attributed to hypersplenism from cirrhosis. His previous workup has shown evidence of portal hypertension and related complications. He will need outpatient follow-up with GI upon discharge for ongoing management including portal hypertension. If he needs any invasive procedure in the future and cytopenias were to be an issue, we'll be happy to manage his cytopenias with growth factor support etc. as needed. We'll follow the patient peripherally with you. Please call with any interval questions. Thank you for your excellent ongoing care for allowing us to see him while in- house. - Constitutional Vitals: Vital Signs Temp Pulse Resp BP Pulse Ox 04/14/17 16:02 98.3 F 63 18 108/53 99 04/14/17 12:18 97.8 F 63 16 108/63 100 04/14/17 12:14 97.7 F 69 16 121/67 98 04/14/17 11:06 63 14 93/53 100 04/14/17 10:44 97.7 F 63 14 93/53 100 04/14/17 07:05 98.0 F 62 16 121/97 100 04/14/17 03:25 97.9 F 69 17 139/66 100 04/14/17 00:29 97.7 F 66 18 107/62 99 Intake and Output 04/14/17 04/14/17 04/15/17 08:59 16:59 00:59 Intake Total 370 / 370 120 / 120 Output Total 350 / 350 Balance 370 / 370 -230 / -230 Intake: Oral 120 / 120 120 / 120 Blood Product 250 / 250 0 / 0 Platelet Pheresis Lp Irr 250 / 250 0 / 0 1st Unit [id number] Output: Urine 350 / 350 Other: Meal Lunch Dinner Percent of Meal Consumed 0% 50% Total Peritoneal Dialysis 0 -450 -1520 Output Stool Size Moderate Stool Consistency liquid Stool Color Green # Bowel Movements 1 Weight 96.6 kg 96.6 kg 97.9 kg Blood Glucose* 127 118 Patient Weight 04/15/17 00:59 Weight 97.9 kg Oncology: Obj Data - Labs CBC & Chem 7: 04/14/17 05:28 04/14/17 05:28 Labs: Laboratory Results - last 24 hr 04/12/17 04/13/17 04/13/17 04:57 20:36 21:50 WBC RBC Hgb Hct MCV MCH MCHC RDW Plt Count MPV Immature Gran % Seg Neutrophils % Lymphocytes % Monocytes % Eosinophils % Basophils % Neutrophils # Lymphocytes # Monocytes # Eosinophils # Basophils # Platelet Estimate Immature Plt Fraction Sodium Potassium Chloride Carbon Dioxide BUN Creatinine Est GFR ( Amer) Est GFR (Non-Af Amer) BUN/Creatinine Ratio Glucose POC Glucose 186 H Calculated Osmolality Calcium Magnesium Total Bilirubin AST ALT Alkaline Phosphatase Serum Total Protein Albumin Globulin Albumin/Globulin Ratio Stool Occult Blood Positive A Blood Type A POSITIVE Antibody Screen NEGATIVE 04/14/17 04/14/17 05:28 05:28 WBC 3.0 L RBC 2.87 L Hgb 9.1 L Hct 27.3 L MCV 95.1 MCH 31.7 MCHC 33.3 RDW 15.4 H Plt Count 25 L* MPV 10.7 Immature Gran % 1.0 Seg Neutrophils % 61.6 Lymphocytes % 11.9 Monocytes % 13.9 Eosinophils % 10.9 Basophils % 0.7 Neutrophils # 1.9 Lymphocytes # 0.4 L Monocytes # 0.4 Eosinophils # 0.3 Basophils # 0.0 Platelet Estimate Decreased L Immature Plt Fraction 3.8 Sodium 131 L D Potassium 3.5 Chloride 95 L Carbon Dioxide 26 BUN 23 D Creatinine 5.89 H Est GFR ( Amer) 11 L Est GFR (Non-Af Amer) 9 L BUN/Creatinine Ratio 4 L Glucose 126 H POC Glucose Calculated Osmolality 277 L Calcium 7.4 L Magnesium 2.0 Total Bilirubin 0.7 AST 42 H ALT 34 Alkaline Phosphatase 202 H Serum Total Protein 5.8 L Albumin 2.7 L Globulin 3.1 Albumin/Globulin Ratio 0.9 L Stool Occult Blood Blood Type Antibody Screen Consult Discharge Plan - Plan Referrals: Oseas Graham MD [Primary Care Provider] - 04/19/17 1:45 pm (With Dr Burleson )
[2017-04-14] MEDS: Gabapentin 300 MG CAPSULE PO SCH (21:48)
[2017-04-14] MEDS ORDERED: 0.9 % Sodium Chloride 250 ML ONE (23:53)
[2017-04-15] MEDS: *HR* OxyCODONE Immed Rel 5 MG TABLET PO SCH ×4 (00:58→17:43)
[2017-04-15] MEDS: Perit. Dialysis with Dex 1.5 % 2,000 ML PERITONEAL SCH ×2 (02:30→08:21)
[2017-04-15] MEDS: Gentamicin Oint 15 GM TUBE TP SCH ×4 (02:52→19:57)
[2017-04-15 05:12] LABS: Hemoglobin 8.5 g/dL (12.9-16.9); Immature Granulocytes % 0.8 % (0-4)
[2017-04-15 05:14] LABS: Basophils % 0.5 %; Eosinophils # 0.4 K/mcL (0.0-0.6); Eosinophils % 9.4 %; Hematocrit 25.4 % (37.5-50.1); Immature Platelets 3.3 % (1.1-6.1); Lymphocytes # 0.4 K/mcL (0.6-4.6); Lymphocytes % 10.8 %; Mean Corpuscular HGB Conc 33.5 g/dL (31.6-35.5); Mean Corpuscular Hemoglobin 31.5 pg (28.0-33.3); Mean Corpuscular Volume 94.1 fL (83.0-100.0); Mean Platelet Volume 9.9 fL (9.4-12.4); Monocytes # 0.4 K/mcL (0.0-1.3); Monocytes % 11.8 %; Neutrophils # 2.5 K/mcL (1.6-8.9); Platelet Count 37 K/mcL (140-400); Segmented Neutrophils % 66.7 %
[2017-04-15 05:39] LABS: Albumin 2.7 g/dL (3.5-5.0); Albumin/Globulin Ratio 0.9 (1.1-2.2); Bilirubin,Total 0.8 mg/dL (0.2-1.2); Calcium 6.9 mg/dL (8.6-10.8); Globulin 2.9 g/dL (2.4-3.5); Potassium 3.3 mEq/L (3.5-4.5); Total Protein 5.6 g/dL (6.0-8.3)
[2017-04-15] MEDS: Insulin LISPRO 300 UNITS/3 ML VIAL SQ SCH ×4 (07:55→21:36)
[2017-04-15] MEDS: Iron Polysaccharide Complex 150 MG CAPSULE PO SCH (08:04)
[2017-04-15] MEDS: Calcium Acetate 667 MG CAPSULE PO SCH ×3 (08:05→16:43)
[2017-04-15] MEDS: Insulin DETEMIR 100 UNIT/ML X5UNITS SQ SCH ×2 (08:06→21:36)
[2017-04-15] MEDS: PERITON. DIALYSIS 13-DEX 2.5 % 2,000 ML PERITONEAL SCH ×3 (08:20→19:51)
[2017-04-15] MEDS ORDERED: 0.9 % Sodium Chloride 250 ML ONE ×3 (10:02→18:28)
--- NOTE | 2017-04-15 11:24 | Internal Med Progress Note ---
<Shannan Oswald - Last Filed: 04/15/17 13:31> Date of Encounter: 04/15/17 Time of Encounter: 11:22 - Assessment and plan (1) ESRD (end stage renal disease) on dialysis Current Visit: Yes Status: Chronic Assessment and plan: Dialysis is being managed by Nephrology. He will getting PD. Hyponatremia has shown improvement, sodium level is currently 130. Will continue to monitor. (2) Hyponatremia Current Visit: Yes Status: Acute Assessment and plan: Hyponatremia has improved from yesterday's hemodialysis. Today it is 130 and yesterday was 131. Nephrology is helping to manage treatment. We will continue to monitor. (3) Pancytopenia Current Visit: Yes Status: Chronic Assessment and plan: Platelet count is currently 37. A 2 transfusion of platelets was ordered for last night and 2 more were ordered for today. Goal is platelets over 50 so that he can get a colonoscopy. Noted to have chronic leukopenia and thrombocytopenia along with acute anemia, which could be related to underlying hepatocellular carcinoma and cirrhosis. No active bleeding at this time. (4) Anemia Current Visit: Yes Status: Chronic Assessment and plan: Hemoglobin today is 8.5 and yesterday was 9.1. EGD and colonoscopy has been rescheduled to be performed by Dr. Silveira tomorrow to rule out occult GI bleed. However, we are wanting to transfer him to [facility] due to the possibility he will not be able to get it performed here tomorrow. 2 Platelet transfusions have been given last night and platelet level was 37. We are giving 2 more platelet transfusions to get level above 50. Qualifiers: Anemia type: due to chronic kidney disease Chronic kidney disease stage: on chronic dialysis Qualified Code(s): N18.6 - End stage renal disease; D63.1 - Anemia in chronic kidney disease; Z99.2 - Dependence on renal dialysis (5) Liver cirrhosis Current Visit: Yes Status: Chronic Qualifiers: Hepatic cirrhosis type: unspecified hepatic cirrhosis Ascites presence: with ascites Qualified Code(s): K74.60 - Unspecified cirrhosis of liver (6) Liver cancer Current Visit: Yes Status: Chronic Assessment and plan: Hepatocellular carcinoma Qualifiers: Liver malignancy type: hepatocellular carcinoma Qualified Code(s): C22.0 - Liver cell carcinoma (7) Hypoalbuminemia Current Visit: Yes Status: Acute Assessment and plan: Albumin has improved some and is is 2.7 today. Nepro shakes ordered for patient per recommendation of nephroogy. (8) DVT prophylaxis Current Visit: No Status: Acute Assessment and plan: compression socks - Subjective Interval history: Patient was comfortably laying down talking with family. He is wanting to know when his colonoscopy will be. He denies chest pain, shortness of breath, lightheaded, nausea, vomiting. - Constitutional Vitals: Temp Pulse Resp BP Pulse Ox 98.0 F 65 16 127/60 99 04/15/17 10:15 04/15/17 10:15 04/15/17 10:15 04/15/17 10:15 04/15/17 10:03 General appearance: Present: A&O X 3, pleasant, no acute distress, answers questions appropriately - Head Head exam: Present: atraumatic, normal inspection - Eye Eye exam: Present: normal appearance, conjuntiva pink. Absent: periorbital swelling, scleral icterus - Neck Neck exam general surgery: Present: supple. Absent: tenderness - Respiratory Respiratory exam: Present: CTAB. Absent: accessory muscle use, rales, respiratory distress, wheezes - Cardiovascular Cardiovascular exam: Present: RRR, +S1, +S2. Absent: clicks, rubs - GI/Abdominal GI/Abdominal exam: Present: normal bowel sounds, soft. Absent: guarding, rebound - Expanded Lower Extremities Exam Lower Leg exam: Present: swelling. Absent: crepitus, ecchymosis, tenderness - Skin Skin exam: Present: dry, intact Internal Medicine: Result - Labs CBC & Chem 7: 04/15/17 04:09 04/15/17 04:09 Labs: Short CBC 04/15/17 Range/Units 04:09 WBC 3.7 L (4.3-11.1) K/mcL Hgb 8.5 L (12.9-16.9) g/dL Hct 25.4 L (37.5-50.1) % Plt Count 37 L (140-400) K/mcL Neutrophils # 2.5 (1.6-8.9) K/mcL BMP 04/15/17 04:09 Sodium 130 L Potassium 3.3 L Chloride 95 L Carbon Dioxide 26 BUN 22 Creatinine 6.26 H Glucose 88 Calcium 6.9 L Liver Function 04/15/17 Range/Units 04:09 Total Bilirubin 0.8 (0.2-1.2) mg/dL AST 32 (5-34) Units/L ALT 26 (0-55) Units/L Alkaline Phosphatase 169 H (38-126) Units/L Albumin 2.7 L (3.5-5.0) g/dL Consult Discharge Plan - Plan Referrals: Oseas Graham MD [Primary Care Provider] - 04/19/17 1:45 pm (With Dr Burleson ) <Harjinder Gold - Last Filed: 04/15/17 17:59> Date of Encounter: 04/15/17 - Constitutional Vitals: Temp Pulse Resp BP Pulse Ox 98.0 F 68 16 128/66 98 04/15/17 17:06 04/15/17 17:06 04/15/17 17:06 04/15/17 17:06 04/15/17 17:06 Internal Medicine: Result - Labs CBC & Chem 7: 04/15/17 13:13 04/15/17 04:09 Labs: Short CBC 04/15/17 04/15/17 Range/Units 04:09 13:13 WBC 3.7 L 3.1 L (4.3-11.1) K/mcL Hgb 8.5 L 8.8 L (12.9-16.9) g/dL Hct 25.4 L 26.4 L (37.5-50.1) % Plt Count 37 L 43 L (140-400) K/mcL Neutrophils # 2.5 2.0 (1.6-8.9) K/mcL BMP 04/15/17 04:09 Sodium 130 L Potassium 3.3 L Chloride 95 L Carbon Dioxide 26 BUN 22 Creatinine 6.26 H Glucose 88 Calcium 6.9 L Liver Function 04/15/17 Range/Units 04:09 Total Bilirubin 0.8 (0.2-1.2) mg/dL AST 32 (5-34) Units/L ALT 26 (0-55) Units/L Alkaline Phosphatase 169 H (38-126) Units/L Albumin 2.7 L (3.5-5.0) g/dL - ABG Interpretation ABG results: PT/INR, D-dimer PT 13.8 Seconds (9.4-12.1) H 04/15/17 14:34 - Attending Attestation I examined this patient and my medical decision-making was reviewed with the Resident Physician, Dr Oswald. I agree with the documented findings, disposition and treatment plan as described except to the extent set forth below. patient awaiting EGD and colonoscopy. I have discussed the case with gen Gen. surgery and oncology. I have reviewed his labs reported and our medical recor from 2014. He has chronic thrombocytopenia and his platelets Oncology recommends colonoscopy can be performed if plat platelets are greater than 30, 000 aand no biopsy or snaring is performed.plan for EGD and colonoscopy ajith Tomorrow. Transfuse platelets preprocedure. Check coags. The patient is not a candidate fo For pharmacological DVT prophyprophylaxis due to thrombocytopenia and suspected GI bleeding.
[2017-04-15 13:47] LABS: Basophils % 0.6 %; Hematocrit 26.4 % (37.5-50.1); Hemoglobin 8.8 g/dL (12.9-16.9); Mean Corpuscular HGB Conc 33.3 g/dL (31.6-35.5); Mean Corpuscular Hemoglobin 31.3 pg (28.0-33.3); Mean Platelet Volume 9.2 fL (9.4-12.4); Red Blood Count 2.81 M/mcL (4.19-5.50)
[2017-04-15 13:48] LABS: Eosinophils # 0.3 K/mcL (0.0-0.6); Immature Granulocytes % 0.6 % (0-4); Immature Platelets 2.1 % (1.1-6.1); Lymphocytes # 0.4 K/mcL (0.6-4.6); Lymphocytes % 12.2 %; Monocytes # 0.4 K/mcL (0.0-1.3); Monocytes % 12.2 %; Segmented Neutrophils % 65.4 %
[2017-04-15 13:51] LABS: Platelet Count 43 K/mcL (140-400)
[2017-04-15 14:54] LABS: INR 1.3; Prothrombin Time 13.8 Seconds (9.4-12.1)
--- NOTE | 2017-04-15 15:38 | General Surgery Progress Note ---
<Katelyn Gauthier - Last Filed: 04/15/17 15:36> Date of Encounter: 04/15/17 Time of Encounter: 15:00 - Assessment and Plan (1) Anemia Current Visit: Yes Status: Chronic Plan for EGD/Colonoscopy in the next [address] Lacy Platelet count 25>43 after 5 packs of platelets Plan to transfuse to more packs this evening It will be optimal to perform procedures when platelets are close to 50,000 Clear liquids today NPO after midnight Consent complete Qualifiers: Anemia type: due to chronic kidney disease Chronic kidney disease stage: on chronic dialysis Qualified Code(s): N18.6 - End stage renal disease; D63.1 - Anemia in chronic kidney disease; Z99.2 - Dependence on renal dialysis Subjective Patient reports: no new complaints, flatus, bowel movement (liquid secondary to bowel prep), afebrile Objective Vital Signs - Last 8 Hours Temp Pulse Resp BP Pulse Ox 04/15/17 11:20 98.6 F 62 12 128/65 99 04/15/17 10:15 98.0 F 65 16 127/60 04/15/17 10:05 98.6 F 95 16 149/68 04/15/17 10:03 97.9 F 63 18 99 04/15/17 09:13 97.7 F 65 16 138/60 99 04/15/17 08:58 97.9 F 67 16 161/67 98 04/15/17 08:50 97.2 F L 66 16 134/61 Intake and Output 04/14/17 04/15/17 04/15/17 23:59 07:59 15:59 Intake Total 321 / 321 1460 / 1460 Output Total 350 / 350 Balance -29 / -29 1460 / 1460 Intake: Oral 120 / 120 0 / 0 60 / 60 Blood Product 1400 / 1400 Platelet Pheresis Lp Irr 1st Unit [id number] Platelet Pheresis Lp Irr 500 / 500 1st Unit [id number] Platelet Pheresis Lp Irr 0 / 0 1st Unit [id number] Platelet Pheresis Lp Irr 3rd Unit [id number] Platelet Pheresis Lp Irr 900 / 900 3rd Unit [id number] Output: Urine 350 / 350 Other: Meal Dinner Percent of Meal Consumed 50% Total Peritoneal Dialysis -460 80 -320 Output Stool Size Moderate Small Stool Consistency liquid soft Stool Color Green Brown # Bowel Movements 1 Weight 97.4 kg 97.6 kg 96.8 kg Blood Glucose* 107 93 98 Patient Weight 04/15/17 23:59 Weight 96.8 kg - General physical appearance well developed, well nourished, no distress, no pain, chronically ill - Eyes normal ocular movement - ENT normal mucosa, atraumatic, normocephalic - Neck Neck exam: trachea midline - Respiratory normal respiratory effort, clear to auscultation, other (diminished bibasilar bases) - Cardiovascular Cardiovascular exam: Present: RRR - Abdomen Abdomen: Present: bowel sounds present, soft, non tender, distended (softly distended), wound (Peritoneal dialysis catheter secure) - Neurologic CN 2-12 grossly intact - Musculoskeletal other (deconditioning noted) - Psychiatric oriented to time, oriented to person, oriented to place, speech is normal, memory intact - Labs 04/15/17 13:13 04/15/17 04:09 Diabetes panel 04/15/17 Range/Units 04:09 Sodium 130 L (136-145) mEq/L Potassium 3.3 L (3.5-4.5) mEq/L Chloride 95 L (98-109) mEq/L Carbon Dioxide 26 (19-29) mEq/L BUN 22 (8-26) mg/dL Creatinine 6.26 H (0.72-1.25) mg/dL Glucose 88 (70-99) mg/dL Calcium 6.9 L (8.6-10.8) mg/dL AST 32 (5-34) Units/L ALT 26 (0-55) Units/L Alkaline Phosphatase 169 H (38-126) Units/L Albumin 2.7 L (3.5-5.0) g/dL Calcium panel 04/15/17 Range/Units 04:09 Calcium 6.9 L (8.6-10.8) mg/dL Albumin 2.7 L (3.5-5.0) g/dL Pituitary panel 04/15/17 Range/Units 04:09 Sodium 130 L (136-145) mEq/L Potassium 3.3 L (3.5-4.5) mEq/L Chloride 95 L (98-109) mEq/L Carbon Dioxide 26 (19-29) mEq/L BUN 22 (8-26) mg/dL Creatinine 6.26 H (0.72-1.25) mg/dL Glucose 88 (70-99) mg/dL Calcium 6.9 L (8.6-10.8) mg/dL Adrenal panel 04/15/17 Range/Units 04:09 Sodium 130 L (136-145) mEq/L Potassium 3.3 L (3.5-4.5) mEq/L Chloride 95 L (98-109) mEq/L Carbon Dioxide 26 (19-29) mEq/L BUN 22 (8-26) mg/dL Creatinine 6.26 H (0.72-1.25) mg/dL Glucose 88 (70-99) mg/dL Calcium 6.9 L (8.6-10.8) mg/dL Total Bilirubin 0.8 (0.2-1.2) mg/dL AST 32 (5-34) Units/L ALT 26 (0-55) Units/L Alkaline Phosphatase 169 H (38-126) Units/L Albumin 2.7 L (3.5-5.0) g/dL Consult Discharge Plan - Plan Referrals: Oseas Graham MD [Primary Care Provider] - 04/19/17 1:45 pm (With Dr Burleson ) - Attending Attestation I examined this patient and my medical decision-making was reviewed with the SALES REPRESENTATIVE GIR[employer]EL/PA/Advanced Practice Nurse/Resident Physician. I agree with the documented findings, disposition and treatment plan as described except to the extent set forth below. <Bethanie Lacy - Last Filed: 04/16/17 13:11> Date of Encounter: 04/15/17 - Assessment and Plan (1) Pancytopenia Current Visit: Yes Status: Chronic will plan colonoscopy tomorrow am as patient platelet count is above 30K he has been on clears and has done a bowel prep earlier in the week Objective Vital Signs - Last 8 Hours Temp Pulse Resp BP Pulse Ox 04/16/17 09:24 98.2 F 62 16 131/53 97 04/16/17 08:56 97.6 F 66 18 118/69 100 04/16/17 08:53 97.6 F 66 18 118/69 100 04/16/17 08:34 97.6 F 66 18 118/69 100 04/16/17 08:20 88 16 121/70 98 04/16/17 08:19 98.2 F 66 17 115/49 100 04/16/17 08:05 98.2 F 66 17 115/49 100 Intake and Output 04/15/17 04/16/17 04/16/17 23:59 07:59 15:59 Intake Total 1612 / 1612 299 / 299 Output Total 0 / 0 Balance 1612 / 1612 299 / 299 Intake: Oral 60 / 60 0 / 0 Blood Product 1552 / 1552 299 / 299 Platelet Pheresis Lp Irr 652 / 652 1st Unit [id number] Platelet Pheresis Lp Irr 299 / 299 2nd Unit [id number] Platelet Pheresis Lp Irr 900 / 900 3rd Unit [id number] Output: Urine 0 / 0 Other: Total Peritoneal Dialysis -580 -580 79394 Output Weight 97.7 kg 97.579 kg 98.5 kg Blood Glucose* 124 185 Patient Weight 04/16/17 23:59 Weight 98.5 kg - Labs 04/16/17 05:47 04/16/17 05:47 Diabetes panel 04/16/17 Range/Units 05:47 Sodium 132 L (136-145) mEq/L Potassium 3.2 L (3.5-4.5) mEq/L Chloride 94 L (98-109) mEq/L Carbon Dioxide 30 H (19-29) mEq/L BUN 24 (8-26) mg/dL Creatinine 6.63 H (0.72-1.25) mg/dL Glucose 90 (70-99) mg/dL Calcium 7.2 L (8.6-10.8) mg/dL Calcium panel 04/16/17 Range/Units 05:47 Calcium 7.2 L (8.6-10.8) mg/dL Pituitary panel 04/16/17 Range/Units 05:47 Sodium 132 L (136-145) mEq/L Potassium 3.2 L (3.5-4.5) mEq/L Chloride 94 L (98-109) mEq/L Carbon Dioxide 30 H (19-29) mEq/L BUN 24 (8-26) mg/dL Creatinine 6.63 H (0.72-1.25) mg/dL Glucose 90 (70-99) mg/dL Calcium 7.2 L (8.6-10.8) mg/dL Adrenal panel 04/16/17 Range/Units 05:47 Sodium 132 L (136-145) mEq/L Potassium 3.2 L (3.5-4.5) mEq/L Chloride 94 L (98-109) mEq/L Carbon Dioxide 30 H (19-29) mEq/L BUN 24 (8-26) mg/dL Creatinine 6.63 H (0.72-1.25) mg/dL Glucose 90 (70-99) mg/dL Calcium 7.2 L (8.6-10.8) mg/dL - Attending Attestation I examined this patient and my medical decision-making was reviewed with the SALES REPRESENTATIVE [employer]/PA/Advanced Practice Nurse/Resident Physician. I agree with the documented findings, disposition and treatment plan as described except to the extent set forth below.
--- NOTE | 2017-04-15 18:01 | Nephrology Progress Note ---
Date of Encounter: 04/15/17 Time of Encounter: 08:30 - Assessment and Plan (1) ESRD (end stage renal disease) Current Visit: No Status: Chronic Continue PD today but will change him to 2.5% Dianeal to help remove more UF to help prevent worsening of the hypervolemic hyponatremia Pancytopnenia: Hematology is following and endoscopy has been delayed due to thrombocyotopenia Mild hypokalemia: will give BRENDA 10mEq daily. Check Mag in AM Discussed his care with his daughter who I saw outside the cafeteria. (2) Hyponatremia Current Visit: Yes Status: Acute See above (3) Pancytopenia Current Visit: Yes Status: Acute (4) Hypoalbuminemia Current Visit: Yes Status: Acute (5) Hypocalcemia Current Visit: Yes Status: Acute (6) Hyperphosphatemia Current Visit: No Status: Acute (7) Secondary hyperparathyroidism of renal origin Current Visit: Yes Status: Chronic Subjective Principal diagnosis: ESRD, Hyponatremia, Interval history: Pt was seen/examined earlier today. He did not report any problems with PD exchanges. He remains edematous. He is being worked up for endoscopy and was getting platelets when I saw him this AM. Delayed entry of this note. Objective - Vital Signs Vital signs: Vital Signs Temp Pulse Resp BP Pulse Ox 04/15/17 17:06 98.0 F 68 16 128/66 98 04/15/17 16:45 98.0 F 67 16 112/67 04/15/17 15:42 97.9 F 64 20 123/58 98 04/15/17 11:20 98.6 F 62 12 128/65 99 04/15/17 10:15 98.0 F 65 16 127/60 04/15/17 10:05 98.6 F 95 16 149/68 04/15/17 10:03 97.9 F 63 18 99 04/15/17 09:13 97.7 F 65 16 138/60 99 04/15/17 08:58 97.9 F 67 16 161/67 98 04/15/17 08:50 97.2 F L 66 16 134/61 04/15/17 06:55 97.8 F 67 17 125/61 95 04/15/17 05:01 98 F 65 17 138/70 98 04/15/17 02:40 98 F 64 17 126/65 98 04/15/17 02:38 97.8 F 63 16 130/64 98 04/14/17 23:56 98 F 69 17 142/70 98 04/14/17 22:02 98.1 F 65 14 150/82 99 04/14/17 21:47 98.1 F 65 14 148/75 99 04/14/17 21:02 97.8 F 68 16 136/65 99 Intake and Output 04/15/17 04/15/17 04/15/17 07:59 15:59 23:59 Intake Total 1460 / 1460 510 / 510 Balance 1460 / 1460 510 / 510 Intake: Oral 0 / 0 60 / 60 60 / 60 Blood Product 1400 / 1400 450 / 450 Platelet Pheresis Lp Irr 500 / 500 1st Unit [id number] Platelet Pheresis Lp Irr 204 / 204 3rd Unit [id number] Platelet Pheresis Lp Irr 900 / 900 3rd Unit [id number] Platelet Pheresis Lp Irr 450 / 450 3rd Unit [id number] Other: Total Peritoneal Dialysis 80 -240 Output Stool Size Small Stool Consistency soft Stool Color Brown Weight 97.6 kg 95.9 kg Blood Glucose* 93 97 Patient Weight 04/15/17 23:59 Weight 95.9 kg - General Appearance General appearance: Present: well-developed, well-nourished, obese, frail Neck: Present: supple Respiratory: Present: clear Cardiology: Present: edema, regular rate, regular rhythm, normal S1, normal S2 Dialysis Vascular Access: Arteriovenous Fistula (RUE AVF; Also has a PD catheter without exit site erythema) thrill: Yes bruit: Yes Gastrointestinal: Present: normoactive bowel sounds, no guarding, obese, distended Integumentary: Present: warm and dry Neurologic: Present: no focal deficit, no asterixis, alert and oriented x3 Musculoskeletal: Present: no erythema, no cyanosis Psychiatric: Present: mood/affect appropriate, cooperative - Lab 04/15/17 13:13 04/15/17 04:09 Most recent lab results Calcium 6.9 mg/dL (8.6-10.8) L 04/15/17 04:09 Phosphorus 4.5 mg/dL (2.3-4.7) 04/10/17 03:41 Magnesium 2.0 mg/dL (1.6-2.6) 04/14/17 05:28 Consult Discharge Plan - Plan Referrals: Oseas Graham MD [Primary Care Provider] - 04/19/17 1:45 pm (With Dr Burleson )
[2017-04-15] MEDS: Gabapentin 300 MG CAPSULE PO SCH (21:35)
[2017-04-16] MEDS: *HR* OxyCODONE Immed Rel 5 MG TABLET PO SCH ×4 (00:56→18:09)
[2017-04-16] MEDS: PERITON. DIALYSIS 13-DEX 2.5 % 2,000 ML PERITONEAL SCH ×4 (02:02→20:26)
[2017-04-16] MEDS: Gentamicin Oint 15 GM TUBE TP SCH ×4 (02:02→20:26)
[2017-04-16 06:32] LABS: Basophils % 0.7 %; Immature Granulocytes % 0.7 % (0-4); Mean Corpuscular Hemoglobin 31.8 pg (28.0-33.3)
[2017-04-16 06:33] LABS: INR 1.3; Prothrombin Time 13.9 Seconds (9.4-12.1)
[2017-04-16 06:34] LABS: Eosinophils # 0.3 K/mcL (0.0-0.6); Eosinophils % 11.7 %; Hematocrit 24.5 % (37.5-50.1); Hemoglobin 8.2 g/dL (12.9-16.9); Immature Platelets 2.7 % (1.1-6.1); Lymphocytes # 0.4 K/mcL (0.6-4.6); Lymphocytes % 14.8 %; Mean Corpuscular HGB Conc 33.5 g/dL (31.6-35.5); Monocytes # 0.3 K/mcL (0.0-1.3); Monocytes % 10.6 %; Neutrophils # 1.7 K/mcL (1.6-8.9); Red Blood Count 2.58 M/mcL (4.19-5.50); Red Cell Distribution Width 14.6 % (11.5-14.5); Segmented Neutrophils % 61.5 %
[2017-04-16 06:35] LABS: Platelet Count 48 K/mcL (140-400)
[2017-04-16 06:38] LABS: Calcium 7.2 mg/dL (8.6-10.8); Magnesium 1.6 mg/dL (1.6-2.6); Potassium 3.2 mEq/L (3.5-4.5)
--- NOTE | 2017-04-16 07:29 | Anesthesia Evaluation PreOp ---
Date of Encounter: 04/16/17 Time of Encounter: 07:26 - Past History Planned Operation: EGD and colonoscopy Cardiac History: HTN, Hyperlipidemia, Cardiac Surgery (CHF, HTN, Hyperlipidemia , Cardiac Stent, Other (Hx severe Aortic stenosis(AVR 05/23), Echo 01/24/15 EF - 65%)) BOND MANAGER History: Other (anxiety, depression, lumbar DDD) Other Medical History: Hepatic (cirrhosis, hepatocellular carcinoma), Renal ( ESRD), Diabetes Type II, Other (chronic thrombocytopenia) Anesthesia History: No Prior Anesthetic Complications, Past Anesthesia (Grace, cataracts, R arm AV fistula, peritoneal dialysis catheter) Alcohol Use: none Drug use: none Medications and Allergies Aspirin 81 mg PO DAILY 05/19/15 [History] Calcium Acetate [Phoslo] 1,334 mg PO TID 05/19/15 [History] Gabapentin [Neurontin] 300 mg PO HS 05/19/15 [History] Magnesium Oxide [Magnesium] 400 mg PO DAILY 05/19/15 [History] Simvastatin [Zocor] 10 mg PO HS 05/19/15 [History] Tamsulosin [Flomax] 0.4 mg PO BID 05/19/15 [History] Omeprazole [PriLOSEC] 40 mg PO DAILY 11/20/15 [History] OxyCODONE Immed Rel [Roxicodone 5 MG] 5 mg PO Q6HR 11/20/15 [History] Pramipexole [Mirapex] 0.25 mg PO HS 11/20/15 [History] Albuterol Sulfate [Albuterol Inhaler] 2 puff IH Q4HR #2 hfa.aer.ad 11/23/15 [Rx] Alendronate Sodium [Fosamax] 70 mg PO QWEEK 04/08/17 [History] Carvedilol [Coreg] 6.25 mg PO BID 04/08/17 [History] Cholecalciferol (D-3) [Vitamin D] 1,000 unit PO DAILY 04/08/17 [History] Iron Polysaccharide Complex [Ferrex 150] 150 mg PO DAILY 04/08/17 [History] Multivitamin [Multi-Day Vitamins] 1 each PO DAILY 04/08/17 [History] Nitroglycerin [Nitrostat] 0.4 mg SL Q5M PRN 04/08/17 [History] Allergies linezolid [From Zyvox] Allergy (Verified 04/08/17 13:05) Weakness trimethoprim [From Bactrim] Allergy (Verified 04/08/17 13:05) Weakness - Meds/Allergy Pre-op Review Medications Reviewed: Yes Allergies Reviewed: Yes Beta Blockers on Current Med List: Yes Anesthesia Results - Labs 04/16/17 05:47 04/16/17 05:47 - Imaging EKG: report reviewed (SR, LAD, lateral ischemia) Anesthesia Exam Vital Signs/O2 Sat, Most Current Temp Pulse Resp BP Pulse Ox 98 F 63 17 132/62 98 04/16/17 04:55 04/16/17 04:55 04/16/17 04:55 04/16/17 04:55 04/16/17 04:55 Height: 1.73m Weight: 97kg NPO (# of Hours): >8 - HEENT Pupil (Motor): Pupils equal, EOMI Mallampati: II Teeth: Edentulous Oral Opening: Greater than 3 - BOND MANAGER LOC: Oriented BOND MANAGER Motor: Normal RUE, Normal LUE, Normal RLE, Normal LLE, Normal Face BOND MANAGER Sensory: Normal: RUE, LUE, RLE, LLE, Face - Cardiac Rhythm: Regular - Pulmonary Breath Sounds: bilateral Clear Respiratory Effort: Symmetrical Anesthesia Assess/Plan ASA Score: 4 Modified Mccurtain Scale for Level of Consciousness: Cooperative, oriented, and tranquil Anesthetic Plan: General, MAC Monitoring Plan: Standard Monitors Recovery Plan: PACU
[2017-04-16] MEDS ORDERED: 0.9 % Sodium Chloride 250 ML ONE (07:47)
[2017-04-16] MEDS: Insulin LISPRO 300 UNITS/3 ML VIAL SQ SCH ×4 (08:23→20:30)
[2017-04-16] MEDS: Calcium Acetate 667 MG CAPSULE PO SCH ×3 (08:24→18:09)
[2017-04-16] MEDS: Iron Polysaccharide Complex 150 MG CAPSULE PO SCH (08:25)
[2017-04-16] MEDS: Insulin DETEMIR 100 UNIT/ML X5UNITS SQ SCH ×2 (09:19→20:29)
--- NOTE | 2017-04-16 10:10 | Nephrology Progress Note ---
Date of Encounter: 04/16/17 Time of Encounter: 08:50 - Assessment and Plan (1) ESRD (end stage renal disease) Status: Chronic Continue PD with 2.5% Dianeal to help remove more UF to help prevent worsening of the hypervolemic hyponatremia Pancytopnenia: Hematology is following and endoscopy has been delayed due to thrombocyotopenia Mild hypokalemia: will give BRENDA 10mEq daily. Discussed his care with his family. (2) Hyponatremia Status: Acute Hypervolemic hyponatremia. Continue the 2.5% dextrose for ongoing fluid removal. I reviewed the PD logs saved in the nursing cabinet. (3) Pancytopenia Status: Chronic (4) Hypoalbuminemia Status: Acute (5) Hyperphosphatemia Status: Acute Renal diet when ever his diet is advanced. (6) Secondary hyperparathyroidism of renal origin Status: Chronic Continue home Rx. Subjective Principal diagnosis: ESRD, Hyponatremia, Interval history: Pt was seen/examined earlier today. He did not report any problems with PD exchanges. He remains edematous. He is being worked up for endoscopy and was getting platelets when I saw him this AM. Delayed entry of this note. Objective - Vital Signs Vital signs: Vital Signs Temp Pulse Resp BP Pulse Ox 04/16/17 09:24 98.2 F 62 16 131/53 97 04/16/17 08:56 97.6 F 66 18 118/69 100 04/16/17 08:53 97.6 F 66 18 118/69 100 04/16/17 08:34 97.6 F 66 18 118/69 100 04/16/17 08:20 88 16 121/70 98 04/16/17 08:19 98.2 F 66 17 115/49 100 04/16/17 08:05 98.2 F 66 17 115/49 100 04/16/17 04:55 98 F 63 17 132/62 98 04/16/17 00:59 98.2 F 59 15 152/80 95 04/15/17 21:50 98.1 F 65 16 144/58 04/15/17 19:36 99.0 F 65 14 135/60 96 04/15/17 18:34 98.0 F 94 17 124/59 99 04/15/17 18:29 97.9 F 96 16 115/60 97 04/15/17 17:06 98.0 F 68 16 128/66 98 04/15/17 17:03 97.8 F 75 18 133/54 04/15/17 16:45 98.0 F 67 16 112/67 04/15/17 15:42 97.9 F 64 20 123/58 98 04/15/17 11:20 98.6 F 62 12 128/65 99 04/15/17 10:15 98.0 F 65 16 127/60 Intake and Output 04/15/17 04/16/17 04/16/17 23:59 07:59 15:59 Intake Total 1612 / 1612 299 / 299 Balance 1612 / 1612 299 / 299 Intake: Oral 60 / 60 Blood Product 1552 / 1552 299 / 299 Platelet Pheresis Lp Irr 652 / 652 1st Unit [id number] Platelet Pheresis Lp Irr 299 / 299 2nd Unit [id number] Platelet Pheresis Lp Irr 900 / 900 3rd Unit [id number] Other: Total Peritoneal Dialysis -580 -580 Output Weight 97.7 kg 97.579 kg Blood Glucose* 124 95 Patient Weight 04/16/17 23:59 Weight 97.579 kg - General Appearance Exam: General appearance: Present: well-developed, well-nourished, obese, frail Neck: Present: supple Respiratory: Present: clear Cardiology: Present: edema, regular rate, regular rhythm, normal S1, normal S2 Dialysis Vascular Access: Arteriovenous Fistula (RUE AVF; Also has a PD catheter without exit site erythema) thrill: Yes bruit: Yes Gastrointestinal: Present: normoactive bowel sounds, no guarding, obese, distended Integumentary: Present: warm and dry Neurologic: Present: no focal deficit, no asterixis, alert and oriented x3 Musculoskeletal: Present: no erythema, no cyanosis Psychiatric: Present: mood/affect appropriate, cooperative - Lab 04/17/17 03:45 04/17/17 03:45 Most recent lab results Calcium 7.2 mg/dL (8.6-10.8) L 04/16/17 05:47 Phosphorus 4.5 mg/dL (2.3-4.7) 04/10/17 03:41 Magnesium 1.6 mg/dL (1.6-2.6) 04/16/17 05:47 Consult Discharge Plan - Plan Instructions: Chronic Hypertension (DC), Anemia (GEN) Referrals: Oseas Graham MD [Primary Care Provider] - 04/19/17 1:45 pm (With Dr Burleson ) Prescriptions: Omeprazole [PriLOSEC] 40 mg PO BID #60 capsule. Sucralfate [Carafate] 1 gm PO QIDAC #30 tablet
[2017-04-16] MEDS ORDERED: Polyethylene Glycol 3350 255 GM POWDER PO ONE (10:50)
--- NOTE | 2017-04-16 13:14 | General Surgery Progress Note ---
Date of Encounter: 04/16/17 Time of Encounter: 10:45 - Assessment and Plan (1) Pancytopenia Current Visit: Yes Status: Chronic patient wasnt clear of stool this am do another bowel prep clears, npo at midnight will plan EGD/colonoscopy tomorrow am (2) Liver cirrhosis Current Visit: Yes Status: Chronic Qualifiers: Hepatic cirrhosis type: unspecified hepatic cirrhosis Ascites presence: with ascites Qualified Code(s): K74.60 - Unspecified cirrhosis of liver (3) Anemia in CKD (chronic kidney disease) Current Visit: No Status: Chronic Qualifiers: Chronic kidney disease stage: on chronic dialysis Qualified Code(s): N18.6 - End stage renal disease; D63.1 - Anemia in chronic kidney disease; Z99.2 - Dependence on renal dialysis (4) ESRD (end stage renal disease) on dialysis Current Visit: Yes Status: Chronic spoke with Dr Winn who will hold patients peritoneal dialysis in am for EGD/ colonoscopy, will resume peritoneal dialysis as soon as patient returns after procedures Subjective Patient reports: no new complaints, tolerating liquids well, flatus, bowel movement (soft brown stool per nursing) Objective Vital Signs - Last 8 Hours Temp Pulse Resp BP Pulse Ox 04/16/17 09:24 98.2 F 62 16 131/53 97 04/16/17 08:56 97.6 F 66 18 118/69 100 04/16/17 08:53 97.6 F 66 18 118/69 100 04/16/17 08:34 97.6 F 66 18 118/69 100 04/16/17 08:20 88 16 121/70 98 04/16/17 08:19 98.2 F 66 17 115/49 100 04/16/17 08:05 98.2 F 66 17 115/49 100 Intake and Output 04/15/17 04/16/17 04/16/17 23:59 07:59 15:59 Intake Total 1612 / 1612 299 / 299 Output Total 0 / 0 Balance 1612 / 1612 299 / 299 Intake: Oral 60 / 60 0 / 0 Blood Product 1552 / 1552 299 / 299 Platelet Pheresis Lp Irr 652 / 652 1st Unit [id number] Platelet Pheresis Lp Irr 299 / 299 2nd Unit [id number] Platelet Pheresis Lp Irr 900 / 900 3rd Unit [id number] Output: Urine 0 / 0 Other: Total Peritoneal Dialysis -580 -580 13254 Output Weight 97.7 kg 97.579 kg 98.5 kg Blood Glucose* 124 185 Patient Weight 04/16/17 23:59 Weight 98.5 kg - General physical appearance well developed, no distress, chronically ill, obese, other (pale) - Eyes PERRL, normal ocular movement - ENT normal mucosa, normocephalic - Neck Neck exam: trachea midline - Respiratory normal expansion, clear to auscultation - Cardiovascular Cardiovascular exam: Present: RRR - Abdomen Abdomen: Present: bowel sounds present, soft, non tender. Absent: distended - Integumentary no rash, no growths - Neurologic CN 2-12 grossly intact - Musculoskeletal normal posture - Psychiatric oriented to time, memory intact - Labs 04/16/17 05:47 04/16/17 05:47 Short CBC 04/16/17 04/15/17 Range/Units 05:47 13:13 WBC 2.8 L 3.1 L (4.3-11.1) K/mcL Hgb 8.2 L 8.8 L (12.9-16.9) g/dL Hct 24.5 L 26.4 L (37.5-50.1) % Plt Count 48 L 43 L (140-400) K/mcL Neutrophils # 1.7 2.0 (1.6-8.9) K/mcL BMP 04/16/17 Range/Units 05:47 Sodium 132 L (136-145) mEq/L Potassium 3.2 L (3.5-4.5) mEq/L Chloride 94 L (98-109) mEq/L Carbon Dioxide 30 H (19-29) mEq/L BUN 24 (8-26) mg/dL Creatinine 6.63 H (0.72-1.25) mg/dL Glucose 90 (70-99) mg/dL Calcium 7.2 L (8.6-10.8) mg/dL Vital Signs Temp Pulse Resp BP Pulse Ox 04/16/17 09:24 98.2 F 62 16 131/53 97 04/16/17 08:56 97.6 F 66 18 118/69 100 04/16/17 08:53 97.6 F 66 18 118/69 100 04/16/17 08:34 97.6 F 66 18 118/69 100 04/16/17 08:20 88 16 121/70 98 04/16/17 08:19 98.2 F 66 17 115/49 100 04/16/17 08:05 98.2 F 66 17 115/49 100 04/16/17 04:55 98 F 63 17 132/62 98 04/16/17 00:59 98.2 F 59 15 152/80 95 04/15/17 21:50 98.1 F 65 16 144/58 04/15/17 19:36 99.0 F 65 14 135/60 96 04/15/17 18:34 98.0 F 94 17 124/59 99 04/15/17 18:29 97.9 F 96 16 115/60 97 04/15/17 17:06 98.0 F 68 16 128/66 98 04/15/17 17:03 97.8 F 75 18 133/54 04/15/17 16:45 98.0 F 67 16 112/67 04/15/17 15:42 97.9 F 64 20 123/58 98 Intake and Output 04/15/17 04/16/17 04/16/17 23:59 07:59 15:59 Intake Total 1612 / 1612 299 / 299 Output Total 0 / 0 Balance 1612 / 1612 299 / 299 Intake: Oral 60 / 60 0 / 0 Blood Product 1552 / 1552 299 / 299 Platelet Pheresis Lp Irr 652 / 652 1st Unit [id number] Platelet Pheresis Lp Irr 299 / 299 2nd Unit [id number] Platelet Pheresis Lp Irr 900 / 900 3rd Unit [id number] Output: Urine 0 / 0 Other: Total Peritoneal Dialysis -580 -580 78274 Output Weight 97.7 kg 97.579 kg 98.5 kg Blood Glucose* 124 185 Patient Weight 04/16/17 23:59 Weight 98.5 kg Consult Discharge Plan - Plan Referrals: Oseas Graham MD [Primary Care Provider] - 04/19/17 1:45 pm (With Dr Burleson )
[2017-04-16 16:13] LABS: Basophils % 0.7 %; Hematocrit 30.7 % (37.5-50.1); Mean Corpuscular HGB Conc 32.9 g/dL (31.6-35.5); Mean Corpuscular Hemoglobin 31.3 pg (28.0-33.3); Red Blood Count 3.23 M/mcL (4.19-5.50)
[2017-04-16 16:15] LABS: Eosinophils # 0.6 K/mcL (0.0-0.6); Eosinophils % 11.3 %; Hemoglobin 10.1 g/dL (12.9-16.9); Immature Granulocytes % 0.9 % (0-4); Immature Platelets 2.4 % (1.1-6.1); Lymphocytes # 0.5 K/mcL (0.6-4.6); Lymphocytes % 9.1 %; Mean Platelet Volume 9.8 fL (9.4-12.4); Monocytes # 0.7 K/mcL (0.0-1.3); Monocytes % 11.8 %; Red Cell Distribution Width 14.6 % (11.5-14.5); Segmented Neutrophils % 66.2 %
[2017-04-16 16:16] LABS: Neutrophils # 3.6 K/mcL (1.6-8.9)
[2017-04-16 16:17] LABS: Platelet Count 72 K/mcL (140-400)
--- NOTE | 2017-04-16 16:29 | Internal Med Progress Note ---
<Shannan Oswald - Last Filed: 04/16/17 16:26> Date of Encounter: 04/16/17 Time of Encounter: 16:27 - Assessment and plan (1) ESRD (end stage renal disease) on dialysis Current Visit: Yes Status: Chronic Assessment and plan: Dialysis is being managed by Nephrology. He received PD yesterday. Hyponatremia has shown improvement, sodium level is currently 132. Will continue to monitor. (2) Hyponatremia Current Visit: Yes Status: Acute Assessment and plan: Hyponatremia has improved from yesterday's hemodialysis. Today it is 132. Nephrology is helping to manage treatment. We will continue to monitor. (3) Pancytopenia Current Visit: Yes Status: Chronic Assessment and plan: Platelet count is currently 72. A transfusion of platelets was ordered for today. Goal is platelets over 50 so that he can get a colonoscopy. Noted to have chronic leukopenia and thrombocytopenia along with acute anemia, which could be related to underlying hepatocellular carcinoma and cirrhosis. No active bleeding at this time. (4) Anemia Current Visit: Yes Status: Chronic Assessment and plan: Hemoglobin has improved, today it is 10.1. EGD and colonoscopy has been rescheduled to be performed by Dr. Lacy tomorrow to rule out occult GI bleed. Patient has had a bowel prep today, and is NPO at midnight. Qualifiers: Anemia type: due to chronic kidney disease Chronic kidney disease stage: on chronic dialysis Qualified Code(s): N18.6 - End stage renal disease; D63.1 - Anemia in chronic kidney disease; Z99.2 - Dependence on renal dialysis (5) Liver cirrhosis Current Visit: Yes Status: Chronic Qualifiers: Hepatic cirrhosis type: unspecified hepatic cirrhosis Ascites presence: with ascites Qualified Code(s): K74.60 - Unspecified cirrhosis of liver (6) Liver cancer Current Visit: Yes Status: Chronic Assessment and plan: Hepatocellular carcinoma Qualifiers: Liver malignancy type: hepatocellular carcinoma Qualified Code(s): C22.0 - Liver cell carcinoma (7) Hypoalbuminemia Current Visit: Yes Status: Acute Assessment and plan: Albumin has improved some and is 2.7. (8) DVT prophylaxis Current Visit: No Status: Acute Assessment and plan: compression socks - Subjective Interval history: Patient was comfortably laying down talking with family. His only complaint is that he would have liked to have is colonoscopy today rather than rescheduled for tomorrow. He denies chest pain, shortness of breath, lightheaded, nausea, vomiting. - Constitutional Vitals: Temp Pulse Resp BP Pulse Ox 97.7 F 67 16 111/63 100 04/16/17 15:06 04/16/17 15:06 04/16/17 15:06 04/16/17 15:06 04/16/17 15:06 General appearance: Present: A&O X 3, pleasant, no acute distress, answers questions appropriately - Head Head exam: Present: atraumatic, normal inspection - Eye Eye exam: Present: conjuntiva pink - Neck Neck exam general surgery: Present: supple, trachea midline Additional comments: No tenderness - Respiratory Respiratory exam: Present: CTAB Additional comments: No respiratory distress, wheezing, stridor - Cardiovascular Cardiovascular exam: Present: RRR, +S1, +S2 Additional comments: no Rubs, Gallop, clicks. - GI/Abdominal GI/Abdominal exam: Present: distended, normal bowel sounds, soft Additional comments: Nontender, no guarding - Extremities Exam Extremities exam: Present: pedal edema, radial pulses palpable and symetrical Additional comments: Nontender bilateral lower extremity edema 2+ - Skin Skin exam: Present: dry, intact Internal Medicine: Result - Labs CBC & Chem 7: 04/16/17 15:56 04/16/17 05:47 Labs: Short CBC 04/16/17 04/16/17 Range/Units 05:47 15:56 WBC 2.8 L 5.5 D (4.3-11.1) K/mcL Hgb 8.2 L 10.1 L D (12.9-16.9) g/dL Hct 24.5 L 30.7 L (37.5-50.1) % Plt Count 48 L 72 L (140-400) K/mcL Neutrophils # 1.7 3.6 (1.6-8.9) K/mcL BMP 04/16/17 05:47 Sodium 132 L Potassium 3.2 L Chloride 94 L Carbon Dioxide 30 H BUN 24 Creatinine 6.63 H Glucose 90 Calcium 7.2 L - ABG Interpretation ABG results: PT/INR, D-dimer PT 13.9 Seconds (9.4-12.1) H 04/16/17 05:47 Consult Discharge Plan - Plan Referrals: Oseas Graham MD [Primary Care Provider] - 04/19/17 1:45 pm (With Dr Burleson ) <Harjinder Gold - Last Filed: 04/16/17 18:37> Date of Encounter: 04/16/17 - Constitutional Vitals: Temp Pulse Resp BP Pulse Ox 97.7 F 67 16 111/63 100 04/16/17 15:06 04/16/17 15:06 04/16/17 15:06 04/16/17 15:06 04/16/17 15:06 Internal Medicine: Result - Labs CBC & Chem 7: 04/16/17 15:56 04/16/17 05:47 Labs: Short CBC 04/16/17 04/16/17 Range/Units 05:47 15:56 WBC 2.8 L 5.5 D (4.3-11.1) K/mcL Hgb 8.2 L 10.1 L D (12.9-16.9) g/dL Hct 24.5 L 30.7 L (37.5-50.1) % Plt Count 48 L 72 L (140-400) K/mcL Neutrophils # 1.7 3.6 (1.6-8.9) K/mcL BMP 04/16/17 05:47 Sodium 132 L Potassium 3.2 L Chloride 94 L Carbon Dioxide 30 H BUN 24 Creatinine 6.63 H Glucose 90 Calcium 7.2 L - ABG Interpretation ABG results: PT/INR, D-dimer PT 13.9 Seconds (9.4-12.1) H 04/16/17 05:47 - Attending Attestation I examined this patient and my medical decision-making was reviewed with the Resident Physician, Dr. Brandt. I agree with the documented findings, disposition and treatment plan as described except to the extent set forth below. Plan:We will check platelet count this evening and transfuse platelets for a goal of platelet count greate greater than 50,000 tomorrow prior to colonoscopy.we will order a bowel prep this afternoon in anticipation of EGD and colonoscopy tomorrow. I did discuss the case with the surgeon dictionary editor. for DVT prophylaxis we will use SCDs. He cannot receive pharmacological prophylaxis due to suspected GI bleed.
[2017-04-16] MEDS: Gabapentin 300 MG CAPSULE PO SCH (20:25)
[2017-04-16 22:30] LABS: Red Cell Distribution Width 14.6 % (11.5-14.5)
[2017-04-16 22:32] LABS: Basophils % 0.4 %; Eosinophils # 0.3 K/mcL (0.0-0.6); Eosinophils % 9.4 %; Hemoglobin 8.7 g/dL (12.9-16.9); Immature Granulocytes % 0.4 % (0-4); Immature Platelets 2.3 % (1.1-6.1); Lymphocytes # 0.4 K/mcL (0.6-4.6); Lymphocytes % 12.9 %; Mean Corpuscular HGB Conc 33.5 g/dL (31.6-35.5); Mean Corpuscular Hemoglobin 31.8 pg (28.0-33.3); Mean Corpuscular Volume 94.9 fL (83.0-100.0); Monocytes # 0.3 K/mcL (0.0-1.3); Monocytes % 12.2 %; Neutrophils # 1.8 K/mcL (1.6-8.9); Red Blood Count 2.74 M/mcL (4.19-5.50); Segmented Neutrophils % 64.7 %
[2017-04-16 22:36] LABS: Platelet Count 47 K/mcL (140-400)
[2017-04-17] MEDS: *HR* OxyCODONE Immed Rel 5 MG TABLET PO SCH ×4 (00:52→17:03)
[2017-04-17] MEDS: PERITON. DIALYSIS 13-DEX 2.5 % 2,000 ML PERITONEAL SCH ×4 (01:55→16:51)
[2017-04-17] MEDS: Gentamicin Oint 15 GM TUBE TP SCH ×3 (01:55→16:51)
[2017-04-17 04:49] LABS: Basophils % 0.6 %; Immature Granulocytes % 0.6 % (0-4); Mean Corpuscular Hemoglobin 31.3 pg (28.0-33.3); Red Blood Count 2.88 M/mcL (4.19-5.50); Red Cell Distribution Width 14.4 % (11.5-14.5)
[2017-04-17 04:51] LABS: Eosinophils # 0.4 K/mcL (0.0-0.6); Hematocrit 27.3 % (37.5-50.1); Lymphocytes # 0.4 K/mcL (0.6-4.6); Lymphocytes % 12.2 %; Mean Corpuscular Volume 94.8 fL (83.0-100.0); Mean Platelet Volume 10.1 fL (9.4-12.4); Monocytes # 0.4 K/mcL (0.0-1.3); Monocytes % 11.6 %
[2017-04-17 04:52] LABS: INR 1.3; Neutrophils # 2.1 K/mcL (1.6-8.9); Platelet Count 47 K/mcL (140-400); Prothrombin Time 14.4 Seconds (9.4-12.1)
[2017-04-17 05:09] LABS: Albumin 2.8 g/dL (3.5-5.0); Albumin/Globulin Ratio 0.8 (1.1-2.2); Bilirubin,Total 0.9 mg/dL (0.2-1.2); Calcium 7.5 mg/dL (8.6-10.8); Globulin 3.3 g/dL (2.4-3.5); Potassium 3.2 mEq/L (3.5-4.5); Total Protein 6.1 g/dL (6.0-8.3)
--- NOTE | 2017-04-17 07:32 | Anesthesia Evaluation PreOp ---
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 HX Other Medical History: Hepatic (Cirrhosis), Renal (CKD on PD), Diabetes Type II Anesthesia History: No Prior Anesthetic Complications Alcohol Use: none Drug use: none Medications and Allergies Aspirin 81 mg PO DAILY 05/19/15 [History] Calcium Acetate [Phoslo] 1,334 mg PO TID 05/19/15 [History] Gabapentin [Neurontin] 300 mg PO HS 05/19/15 [History] Magnesium Oxide [Magnesium] 400 mg PO DAILY 05/19/15 [History] Simvastatin [Zocor] 10 mg PO HS 05/19/15 [History] Tamsulosin [Flomax] 0.4 mg PO BID 05/19/15 [History] Omeprazole [PriLOSEC] 40 mg PO DAILY 11/20/15 [History] OxyCODONE Immed Rel [Roxicodone 5 MG] 5 mg PO Q6HR 11/20/15 [History] Pramipexole [Mirapex] 0.25 mg PO HS 11/20/15 [History] Albuterol Sulfate [Albuterol Inhaler] 2 puff IH Q4HR #2 hfa.aer.ad 11/23/15 [Rx] Alendronate Sodium [Fosamax] 70 mg PO QWEEK 04/08/17 [History] Carvedilol [Coreg] 6.25 mg PO BID 04/08/17 [History] Cholecalciferol (D-3) [Vitamin D] 1,000 unit PO DAILY 04/08/17 [History] Iron Polysaccharide Complex [Ferrex 150] 150 mg PO DAILY 04/08/17 [History] Multivitamin [Multi-Day Vitamins] 1 each PO DAILY 04/08/17 [History] Nitroglycerin [Nitrostat] 0.4 mg SL Q5M PRN 04/08/17 [History] Allergies linezolid [From Zyvox] Allergy (Verified 04/08/17 13:05) Weakness trimethoprim [From Bactrim] Allergy (Verified 04/08/17 13:05) Weakness - Meds/Allergy Pre-op Review Medications Reviewed: Yes Allergies Reviewed: Yes Beta Blockers on Current Med List: No Anesthesia Results - Labs 04/17/17 03:45 04/17/17 03:45 - Imaging EKG: report reviewed (SR borderline Left [place] Deviation) Additional studies: LVEF 65% Anesthesia Exam O2 Sat Weight 95.708 kg Weight 94.347 kg Weight 96.8 kg Weight 98.5 kg O2 Sat by Pulse Oximetry 98 O2 Sat by Pulse Oximetry 96 O2 Sat by Pulse Oximetry 99 O2 Sat by Pulse Oximetry 100 O2 Sat by Pulse Oximetry 97 O2 Sat by Pulse Oximetry 100 O2 Sat by Pulse Oximetry 100 O2 Sat by Pulse Oximetry 100 O2 Sat by Pulse Oximetry 98 O2 Sat by Pulse Oximetry 100 O2 Sat by Pulse Oximetry 100 Vital Signs Temp Pulse Resp BP Pulse Ox 98.3 F 157 22 113/67 97 04/08/17 13:06 04/08/17 13:06 04/08/17 13:06 04/08/17 13:06 04/08/17 13:06 Height: 5'8 Weight: 211 lbs NPO (# of Hours): MN Pain Scale: 0 - HEENT Pupil (Motor): Pupils equal, EOMI Mallampati: III Teeth: Normal Oral Opening: Greater than 3 - 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 LOC: Oriented 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
[2017-04-17] MEDS ORDERED: 0.9 % Sodium Chloride 250 ML ONE (07:41)
[2017-04-17] MEDS ORDERED: Simethicone 40 MG/0.6 ML MLS IR ONE (08:12)
[2017-04-17] MEDS ORDERED: Tetracaine/Benzocaine/Butamben 200MG/SPRAY (100SPY/BOT) MM ONE (08:12)
--- NOTE | 2017-04-17 09:06 | Anesthesia Evaluation Post Op ---
Date of Encounter: 04/17/17 Time of Encounter: 09:05 - Vital Signs Vital Signs: Vital Signs/O2 Sat/Glucose, Most Current Temp Pulse Resp BP Pulse Ox 04/17/17 09:00 97.4 F L 60 16 94/54 99 04/17/17 08:55 97.4 F L 61 16 93/53 100 04/17/17 08:12 97.8 F 67 18 131/65 99 04/17/17 08:00 97.8 F 126 18 148/64 99 04/17/17 07:58 97.8 F 75 18 136/65 99 04/17/17 07:45 97.8 F 65 18 113/46 97 - Lungs Lungs: Clear Ascult./Percussion - Airway Airway: Non-obstructed - Cardiovascular Regular Rate - Mental Status Mental Status: Alert & Oriented, Answers Appropriately - Pain Pain Scale: 0 - Nausea Vomiting Nausea Vomiting: Not Present - Hydration Hydration: NPO - Discharge PostOp Status: Transfer Patient to floor
[2017-04-17] MEDS: Insulin LISPRO 300 UNITS/3 ML VIAL SQ SCH ×3 (09:34→16:59)
[2017-04-17] MEDS: Calcium Acetate 667 MG CAPSULE PO SCH ×3 (10:11→17:02)
[2017-04-17] MEDS: Insulin DETEMIR 100 UNIT/ML X5UNITS SQ SCH (10:11)
[2017-04-17] MEDS: Iron Polysaccharide Complex 150 MG CAPSULE PO SCH (10:12)
[2017-04-17] MEDS: Sucralfate 1 GM TABLET PO SCH ×2 (10:12→17:02)
--- NOTE | 2017-04-17 12:30 | Nephrology Progress Note ---
Date of Encounter: 04/17/17 Time of Encounter: 11:50 - Assessment and Plan (1) ESRD (end stage renal disease) Status: Chronic Continue PD with 2.5% Dianeal to help remove more UF to help prevent worsening of the hypervolemic hyponatremia Whenever he is discharged, he was instructed to resume his Cycler at home. Pancytopnenia: Hematology is following and endoscopy has been delayed due to thrombocyotopenia Mild hypokalemia: will give BRENDA 10mEq daily. Discussed his care with his daughter who I saw outside the cafeteria. (2) Hyponatremia Status: Acute See above. Hypervolemic hyponatremia. (3) Pancytopenia Status: Chronic (4) Hypoalbuminemia Status: Acute (5) Hyperphosphatemia Status: Acute (6) Secondary hyperparathyroidism of renal origin Status: Chronic Subjective Principal diagnosis: ESRD, Hyponatremia, Interval history: Pt was seen/examined. His family was present and updated on his renal status. He did not affirm new PD exchange complaints (i.e., there was no fibrin or blood ). Objective - Vital Signs Vital signs: Vital Signs Temp Pulse Resp BP Pulse Ox 04/17/17 09:00 97.4 F L 60 16 94/54 99 04/17/17 08:55 97.4 F L 61 16 93/53 100 04/17/17 08:12 97.8 F 67 18 131/65 99 04/17/17 08:00 97.8 F 126 18 148/64 99 04/17/17 07:58 97.8 F 75 18 136/65 99 04/17/17 07:45 97.8 F 65 18 113/46 97 04/17/17 04:27 97.7 F 67 16 119/70 98 04/17/17 00:05 97.6 F 75 16 151/64 96 04/16/17 20:32 97.9 F 68 16 128/63 99 04/16/17 15:06 97.7 F 67 16 111/63 100 Intake and Output 04/16/17 04/17/17 04/17/17 23:59 07:59 15:59 Intake Total 0 / 0 2720 / 2720 284 / 284 Output Total 0 / 0 Balance 0 / 0 2720 / 2720 284 / 284 Intake: IV Fluids 0 / 0 0.9 % Sodium Chloride 250 0 / 0 ML As .ROUTE [facility] Rx#:[id number] Oral 0 / 0 2720 / 2720 240 / 240 Blood Product 0 / 0 Platelet Pheresis Lp Irr 0 / 0 2nd Unit [id number] Output: Urine 0 / 0 Other: Meal Breakfast Percent of Meal Consumed 100% Total Peritoneal Dialysis -400 -2700 1900 Output Stool Size Small Stool Consistency liquid Stool Color Brown Yellow # Bowel Movements 2 Weight 94.347 kg 96.6 kg 96.6 kg Blood Glucose* 132 114 207 Patient Weight 04/17/17 23:59 Weight 96.6 kg - General Appearance Exam: General appearance: Present: well-developed, well-nourished, obese, frail Neck: Present: supple Respiratory: Present: clear Cardiology: Present: edema, regular rate, regular rhythm, normal S1, normal S2 Dialysis Vascular Access: Arteriovenous Fistula (RUE AVF; Also has a PD catheter without exit site erythema) thrill: Yes bruit: Yes Gastrointestinal: Present: normoactive bowel sounds, no guarding, obese, distended Integumentary: Present: warm and dry Neurologic: Present: no focal deficit, no asterixis, alert and oriented x3 Musculoskeletal: Present: no erythema, no cyanosis Psychiatric: Present: mood/affect appropriate, cooperative - Lab 04/17/17 03:45 04/17/17 03:45 Most recent lab results Calcium 7.5 mg/dL (8.6-10.8) L 04/17/17 03:45 Phosphorus 4.5 mg/dL (2.3-4.7) 04/10/17 03:41 Magnesium 1.6 mg/dL (1.6-2.6) 04/16/17 05:47 - VTE Documentation of Mechanical Device: Intermittent pneumatic compression device Consult Discharge Plan - Plan Instructions: Chronic Hypertension (DC), Anemia (GEN) Referrals: Oseas Graham MD [Primary Care Provider] - 04/19/17 1:45 pm (With Dr Burleson ) Prescriptions: Omeprazole [PriLOSEC] 40 mg PO BID #60 capsule. Sucralfate [Carafate] 1 gm PO QIDAC #30 tablet
--- NOTE | 2017-04-17 14:47 | Discharge Summary ---
<Shannan Oswald - Last Filed: 04/17/17 14:42> Date of Encounter: 04/17/17 Time of Encounter: 14:43 - Discharge Diagnosis (1) ESRD (end stage renal disease) on dialysis Priority: Primary Status: Chronic Comments: The patient will continue his PD home. His sodium has improved back to his baseline. I spoke with nephrology and they agreed that the patient was ready for discharge. The patient will follow up with his neurologist outpatient. (2) Hyponatremia Priority: Secondary Status: Acute Comments: The patient's sodium returned to baseline. It is currently 131. (3) Pancytopenia Priority: Secondary Status: Chronic Comments: Noted to have chronic leukopenia and thrombocytopenia along with acute anemia, which could be related to underlying hepatocellular carcinoma and cirrhosis. Platelet count was 47 which allowed the patient to have a colonoscopy today to look for possible GIB, which might explain why his hemoglobin was low. No was no active bleeding at this time. (4) Anemia Priority: Secondary Status: Chronic Comments: Hemoglobin is 9. Per results of the EGD and colonoscopy performed by Dr. Lacy today there were no signs of occult GI bleed. However biopsies were taken from the stomach and colon. The patient was advised that the surgery office would call to inform them of the results but if they do not hear back in 1 to 2 weeks they should call the office for the results. Qualifiers: Anemia type: due to chronic kidney disease Chronic kidney disease stage: on chronic dialysis Qualified Code(s): N18.6 - End stage renal disease; D63.1 - Anemia in chronic kidney disease; Z99.2 - Dependence on renal dialysis (5) Liver cirrhosis Priority: Secondary Status: Chronic Qualifiers: Hepatic cirrhosis type: unspecified hepatic cirrhosis Ascites presence: with ascites Qualified Code(s): K74.60 - Unspecified cirrhosis of liver (6) Liver cancer Priority: Secondary Status: Chronic Comments: Hepatocellular carcinoma Qualifiers: Liver malignancy type: hepatocellular carcinoma Qualified Code(s): C22.0 - Liver cell carcinoma (7) Hypoalbuminemia Priority: Secondary Status: Acute Comments: The albumin is 2.8 today. The patient is at his baseline. This is most likely due to his liver cirrhosis. (8) DVT prophylaxis Priority: Secondary Status: Acute Comments: The patient was given compression socks. - Discharge Medications Prescriptions: Omeprazole [PriLOSEC] 40 mg PO BID #60 capsule. Sucralfate [Carafate] 1 gm PO QIDAC #30 tablet Home Medications: Aspirin 81 mg PO DAILY 05/19/15 [History] Calcium Acetate [Phoslo] 1,334 mg PO TID 05/19/15 [History] Gabapentin [Neurontin] 300 mg PO HS 05/19/15 [History] Magnesium Oxide [Magnesium] 400 mg PO DAILY 05/19/15 [History] Simvastatin [Zocor] 10 mg PO HS 05/19/15 [History] Tamsulosin [Flomax] 0.4 mg PO BID 05/19/15 [History] OxyCODONE Immed Rel [Roxicodone 5 MG] 5 mg PO Q6HR 11/20/15 [History] Pramipexole [Mirapex] 0.25 mg PO HS 11/20/15 [History] Albuterol Sulfate [Albuterol Inhaler] 2 puff IH Q4HR #2 hfa.aer.ad 11/23/15 [Rx] Alendronate Sodium [Fosamax] 70 mg PO QWEEK 04/08/17 [History] Carvedilol [Coreg] 6.25 mg PO BID 04/08/17 [History] Cholecalciferol (D-3) [Vitamin D] 1,000 unit PO DAILY 04/08/17 [History] Iron Polysaccharide Complex [Ferrex 150] 150 mg PO DAILY 04/08/17 [History] Multivitamin [Multi-Day Vitamins] 1 each PO DAILY 04/08/17 [History] Nitroglycerin [Nitrostat] 0.4 mg SL Q5M PRN 04/08/17 [History] Omeprazole [PriLOSEC] 40 mg PO BID #60 capsule. 04/17/17 [Rx] Sucralfate [Carafate] 1 gm PO QIDAC #30 tablet 04/17/17 [Rx] Allergies/Adverse Reactions: Allergies linezolid [From Zyvox] Allergy (Verified 04/08/17 13:05) Weakness trimethoprim [From Bactrim] Allergy (Verified 04/08/17 13:05) Weakness Date of admission: 04/08/17 16:51 Primary care physician: Oseas Graham MD Consults: 04/10/17 09:43 Consult to Oncology Hematology [CONS] Routine Consulting Provider: Oshikanlu,Bend O. Reason for Consult: Acute on chronic pancytopenia Call Completed: Yes 04/10/17 15:08 Consult to Surgery [CONS] Routine Consulting Provider: [facility] Reason for Consult: Persistent anemia, suspect occult GI bleed Call Completed: Yes 04/13/17 08:15 Consult to Dialysis [CONS] ONCE 04/14/17 08:30 Consult to Dialysis [CONS] ONCE 04/14/17 17:22 Consult to Oncology Hematology [CONS] Routine Consulting Provider: David Fowler Reason for Consult: ESRD on dialysis that has pancytopenia and is going to get colonoscopy tomorrow. Call Completed: Yes - Patient Status Disposition: Home, Self-Care Condition: Good Functional capacity at discharge: independent ambulation Overall status at discharge: patient is back to baseline - Discharge Instructions Instructions: Chronic Hypertension (DC), Anemia (GEN) Follow Up With: Oseas Graham MD [Primary Care Provider] - 04/19/17 1:45 pm (With Dr Burleson ) - Diet and Activity Diet: advance to your usual diet Interval History: Mr. Daly is a pleasant 76 year-old male who presented to the ED complaining of generalized weakness and dehydration. His past medical history of end-stage renal disease on dialysis, chronic anemia, hepatocellular carcinoma, cirrhosis, diabetes. His EKG showed sinus rhythm, chest x-ray showed no acute cardiopulmonary process, no acute traumatic intracranial abnormality. The patient's platelet count was 36, sodium 123, and hemoglobin 10.4. The patient was admitted for further workup. Nephrology was consulted and guide treatment for his end-stage renal disease on dialysis and hyponatremia. The patient had been given fluids and PD was continued. The patient had acute on chronic thrombocytopenia, anemia, leukopenia. The patient received 3 units of packed red blood cells which initially improved the hemoglobin however it is decreased again. Surgery was consulted and the patient was scheduled to have a colonoscopy. Patients hypervolemic hyponatremia only improved marginally so PD was increased. However the next day the sodium was 123 so hemodialysis was initiated. The patient tolerated the treatment well and 4 L was removed, the sodium was then 131. The platelets were still low and had decreased from 36 to 25 pounds a transfusion of platelets were ordered so that the patient could have the colonoscopy the next day. The patient and his family were unhappy that the colonoscopy was going to have to be the next day. It was recommended to them to be transferred to [facility] to have the colonoscopy done by one of the gastroenterologists. However the patient and family declined and preferred to do it the next day at [place]. Oncology was consulted on the level of platelets recommended for the colonoscopy, which was 50. 2 more transfusions of platelets were ordered however they only reached to 37 so the colonoscopy was rescheduled and 2 more transfusions of platelets were ordered to get the level above 50. The patient continued PD and the sodium continue to improve. The next day the patient was to get the colonoscopy however they had not had a bowel prep that night so colonoscopy was again rescheduled for the next day. The patient had had his last bowel prep on the and another one before that date, had been on clear liquid diet only, however the surgeon requested that the patient have another bowel prep. The patient again received another transfusion of platelets so that they would be an adequate level to have the colonoscopy, along with a bowel prep. The patient had his colonoscopy and no active bleeding was appreciated on EGD or colonoscopy. Biopsies were taken and the patient was advised that surgery would call them with the results. Patient and family were advised that if they do not hear back in 1 to 2 weeks they were to call the office for the results. The patient's sodium returned to baseline along with hemoglobin, white blood cells. The patient is to follow up with their PCP and rehabilitation therapist. He was given an increased dose of his omeprazole that he should take for one month and in order for care fate for one month. Then he has to go back to his original dose of omeprazole. He was advised that if he should worsen then he should come back to the hospital. Hospital course: Mr. Daly is a 76 year old male - Time Spent with Patient Total time spent providing and/or coordinating discharge services: - Constitutional Vitals: Temp Pulse Resp BP Pulse Ox 97.4 F L 60 16 94/54 99 04/17/17 09:00 04/17/17 09:00 04/17/17 09:00 04/17/17 09:00 04/17/17 09:00 General appearance: Present: A&O X 3, pleasant, no acute distress, answers questions appropriately - Head Head exam: Present: atraumatic, normal inspection - Eye Eye exam: Present: conjuntiva pink (No scleral icterus) - Neck Neck exam general surgery: Present: supple, trachea midline (No tenderness) - Respiratory Respiratory exam: Present: CTAB Additional comments: No wheezing, rhonchi, respiratory distress, RALES - Cardiovascular Cardiovascular exam: Present: RRR, +S1, +S2 (No rubs, clicks, gallops) - GI/Abdominal GI/Abdominal exam: Present: normal bowel sounds, soft Additional comments: No guarding, tenderness - Extremities Exam Additional comments: No tenderness chronic edema in lower extremities bilaterally present - Back Exam Back exam: Present: normal inspection Additional comments: No tenderness - Skin Skin exam: Present: dry, intact - VTE Documentation of Mechanical Device: Intermittent pneumatic compression device <Harjinder Gold - Last Filed: 04/17/17 19:01> Date of Encounter: 04/17/17 Date of admission: 04/08/17 16:51 Primary care physician: Oseas Graham MD Consults: 04/10/17 09:43 Consult to Oncology Hematology [CONS] Routine Consulting Provider: David Fowler Reason for Consult: Acute on chronic pancytopenia Call Completed: Yes 04/10/17 15:08 Consult to Surgery [CONS] Routine Consulting Provider: [facility] Reason for Consult: Persistent anemia, suspect occult GI bleed Call Completed: Yes 04/13/17 08:15 Consult to Dialysis [CONS] ONCE 04/14/17 08:30 Consult to Dialysis [CONS] ONCE 04/14/17 17:22 Consult to Oncology Hematology [CONS] Routine Consulting Provider: David Fowler Reason for Consult: ESRD on dialysis that has pancytopenia and is going to get colonoscopy tomorrow. Call Completed: Yes Hospital course: Mr. Daly is a 76 year old male - Time Spent with Patient Total time spent providing and/or coordinating discharge services: - Constitutional Vitals: Temp Pulse Resp BP Pulse Ox 97.4 F L 60 77 136/62 100 04/17/17 09:00 04/17/17 09:00 04/17/17 10:19 04/17/17 10:19 04/17/17 10:19 - Attending Attestation I examined this patient and my medical decision-making was reviewed with the Resident Physician, Dr Oswald. I agree with the documented findings, disposition and treatment plan as described except to the extent set forth below. the patient had a colonoscopy today. No source of bleeding was foundby EGD or colonoscopy. Biopsies were taken. the patient should have a follow-up arranged withthe general surgeon to review the pathology reports. The patient should have a follow-up scheduled with hematology for pancytopenia.
[2017-04-17 17:36] VITALS: BP 136/62
[2017-04-17] MEDS ORDERED: *HR* Propofol 500 MG/50 ML BOTTLE IVC ONE (18:08)
[2017-04-17] MEDS ORDERED: Lidocaine -MPF 2% 5 ML VIAL INFILT ONE (18:08)
== END 2017-04-17 18:09 | disposition home or self-care (01) | DRG 435 ==
LOC: EMEROO 12:48 → 2ANU 12:48 → SUATTDRO 16:51 → 2ANU 18:08
PROVIDERS: ADMIT Internal Medicine; ATTEND Internal Medicine
PROC: ENDOEBX (2017-04-16 08:00)
PROC: ENDOCBX (2017-04-17 08:00)

== ENCOUNTER 2018-02-09 23:28 | Inpatient (IN) ==
[2018-02-10 00:43] LABS: Basophils % 0.7 %; Eosinophils # 0.1 K/mcL (0.0-0.6); Eosinophils % 4.6 %; Hematocrit 26.8 % (37.5-50.1); Hemoglobin 8.7 g/dL (12.9-16.9); Immature Granulocytes % 0.7 % (0-4); Lymphocytes # 0.3 K/mcL (0.6-4.6); Lymphocytes % 9.5 %; Mean Corpuscular HGB Conc 32.5 g/dL (31.6-35.5); Mean Corpuscular Hemoglobin 32.5 pg (28.0-33.3); Mean Platelet Volume 10.4 fL (9.4-12.4); Monocytes # 0.4 K/mcL (0.0-1.3); Monocytes % 14.5 %; Neutrophils # 2.1 K/mcL (1.6-8.9); Red Blood Count 2.68 M/mcL (4.19-5.50); Red Cell Distribution Width 14.9 % (11.5-14.5)
[2018-02-10 00:44] LABS: Bilirubin,Urine Moderate (Negative); Blood,Urine Moderate (Negative); Clarity,Urine Cloudy (Clear); Color,Urine Dark Yellow (Yellow); Glucose,Urine (UA) Normal (Normal); Ketones,Urine Trace mg/dL (Negative); Leukocyte Esterase,Urine Small (Negative); Nitrite,Urine Negative (Negative); Protein,Urine Negative (Neg-Trace); Urobilinogen,Urine Normal (Normal)
[2018-02-10 00:46] LABS: Platelet Count 27 K/mcL (140-400)
[2018-02-10 00:46] LABS: Bacteria,Urine None Seen per hpf (None-Few); Hyaline Casts,Urine None Seen per lpf (None-Few); RBC,Urine 15-30 per hpf (0-3); Squamous Epithelial Cell,Urine Many per lpf (None-Few)
[2018-02-10 00:48] LABS: INR 1.3; Prothrombin Time 13.6 Seconds (9.4-12.1)
[2018-02-10 00:59] LABS: Albumin 2.6 g/dL (3.5-5.7); Albumin/Globulin Ratio 0.8 (1.1-2.2); Bilirubin,Direct 0.6 mg/dL (0.0-0.2); Bilirubin,Indirect 0.6 mg/dL (0.0-1.2); Bilirubin,Total 1.2 mg/dL (0.3-1.0); Calcium 7.5 mg/dL (8.6-10.3); Globulin 3.1 g/dL (2.4-3.5); Phosphorous 5.1 mg/dL (2.7-4.5); Potassium 5.6 mEq/L (3.5-5.1); Total Protein 5.7 g/dL (6.4-8.9); Troponin I 0.03 ng/mL (< 0.04)
--- NOTE | 2018-02-10 01:18 | Emergency Department Note ---
Disposition Clinical Impression: Weakness Disposition: Admitted As Inpatient Condition: Undetermined General Adult HPI - General Chief complaint: ED General Medical Stated complaint: confusion Time Seen by Provider: 02/09/18 23:36 Source: patient, family, EMS Mode of arrival: EMS Limitations: altered mental status Nursing Notes Reviewed: Yes Vital Signs Reviewed: Yes - History of Present Illness HPI Narrative: 37-year-old male with past medical history of end-stage renal disease that utilizes peritoneal dialysis and occasionally hemodialysis, liver cancer, pancytopenia, cirrhosis, diabetes, hypertension, chronic anemia presents emergency department for evaluation of generalized weakness, increasing fatigue , "twitches" that he gets from low calcium. He uses his peritoneal dialysis at night. Patient is being followed by [facility] oncology for liver cancer. This is a recurrent cancer, plan is for chemotherapy to be again in a couple weeks. Patient came in the living will stated he did not want CPR or intubated, when questioned patient agrees with this, but does want basic labs. Patient denies fever, chills, difficulty breathing, shortness of breath, nausea , vomiting, diarrhea, constipation, palpitations, chest pain, increased edema. Pain Scale: 0 Improves with: nothing Worsens with: nothing Associated symptoms: Reports: denies other symptoms - Related Data Allergies Allergy/AdvReac Type Severity Reaction Status Date / Time linezolid [From Zyvox] Allergy Weakness Verified 12/14/17 11:05 trimethoprim [From Bactrim] Allergy Weakness Verified 12/14/17 11:05 All systems ED: reviewed and negative except as stated. Review of Systems: As Per HPI Past Medical History - Past Medical History Attestation: Yes The following information was validated with the patient. Source: patient Medical history: Reports: arthritis, cancer, cirrhosis, CHF, diabetes, dialysis , GERD, kidney stones, liver disease, renal disease, other Surgical history: Reports: angioplasty/stent, cholecystectomy, heart valve replacement (Bioprosthetic aortic vavle replacement in 2013), other (Skin cancer excision left hand 12/2014) Psychiatric history: Reports: anxiety, depression - Social History Smoking Status: Never smoker Smokeless Tobacco Status: No Alcohol use: Reports: none Drug use: Reports: none Physical Exam - General Limitations: altered mental status General appearance: in no apparent distress, lethargic - Head Head exam: atraumatic, normocephalic, normal inspection - Eye Eye exam: Present: normal appearance, PERRL - ENT ENT exam: normal exam, normal oropharynx, mucous membranes moist - Neck Neck exam: Present: normal inspection, full ROM, trachea midline - Chest Chest inspection: Present: normal inspection, symmetric chest wall rise - Respiratory Respiratory exam: Present: normal lung sounds bilaterally - Cardiovascular Cardiovascular exam: Present: regular rate, normal rhythm, normal heart sounds - Abdominal Exam Abdominal exam: Present: soft, Non-Tender. Absent: tenderness, distention, guarding, rebound, rigidity - Extremities Exam Extremities exam: Present: normal inspection, full ROM. Absent: tenderness, pedal edema - Back Exam Back exam: Present: normal inspection, full ROM. Absent: tenderness - Neurological Exam Neurological exam: Present: alert, oriented X3 (Fluctuates), CN II-XII intact - Psychiatric Psychiatric exam: Present: normal affect, normal mood - Skin Skin exam: Present: warm, dry, intact, normal color Course Course Narrative: 77-year-old sallow, hydrated, developed male in no apparent distress. Patient does appear lethargic, however does have easy and even respirations. Initially patient was able to say where he was, who he was, date, and approximate date, is noted with unsynchronized myoclonic jerks. Patient initially stated he did not want any labs, scans, x-rays, or anything else to be completed. He said he did not want to be here whatsoever that his daughters made him come. Spoke with patient who eventually agreed to labs and a urine to be completed to see why he is twitching. He stated that he would like to know his calcium level. Lungs clear, fistula to right antecubital area with positive thrill, positive bruit. Heart rate regular rhythm, no edema. Abdomen with bowel sounds 4, round and peritoneal dialysis catheter in place. Patient is agreeable to basic labs. Family and with patient at this time. They state he has been considerably more lethargic and having myoclonic jerks, he is unable to eat with [place] as stated flies off. This is inhibiting his daily life, as well as he is sleeping 12-15 hours a day every day which is new for him. Patient is agreeable to basic labs, we will reevaluate after - Reevaluation(s) Reevaluation #1: Patient has been resting comfortably respirations easy and even, family minutes at bedside. Labs returned almost identical to labs completed last month but no issue the family has copy of in their possession that was reviewed by myself.. Labs also at baseline from the old labs that we have here. No acute processes indicated. Family asking for a head CT to rule out metastasis to the brain, patient states he would like to have a head CT. Patient does have myoclonic twitching, is weaker, we will go ahead and scan brain now the patient is agreeable. Time: 01:43 Reevaluation #2: Head CT returns with small vessel changes, nonsignificant. Family continues to be concerned regarding lethargy, intermittent confusion, anorexia. Discussion regarding palliative care, will do live. Discussed initially patient did not want any treatment, family discerned that patient refused to come to the emergency room telemetry called the squad. Patient's cancer is recurrent, he is end-stage renal disease. Patient was living will stating no progressive treatment, however is to receive chemotherapy. Discussed palliative care, hospice. Discussed possibility patient giving up, family agrees that might be the case. Family unsure how to discuss palliative care, what to do to get enrolled. Family states they are not able to care patient at home at this time due to the left ear she. Daughter takes care of patient at home by herself and states that she is unable since patient will not help move himself, eat, take medications. She feels and being home is unsafe. We will attempt admitted to hospital services for weakness, lethargy, placement. Time: 03:26 Reevaluation #3: Spoke with hospitalist is agreeable take patient, spoke with family who is appreciative of admission. Questions answered. Hospitalist on floor discussing plan of care with family. Patient will be moved to inpatient unit at this time. Time: 04:57 Vital Signs Temperature 99.4 F 02/09/18 23:54 Pulse Rate 95 02/09/18 23:54 Respiratory Rate 18 02/09/18 23:54 Blood Pressure 102/68 02/09/18 23:54 O2 Sat by Pulse Oximetry 96 02/09/18 23:54 Temperature 99.4 F 02/09/18 23:54 Pulse Rate 89 02/10/18 04:00 Respiratory Rate 18 02/09/18 23:54 Blood Pressure 110/51 02/10/18 04:00 O2 Sat by Pulse Oximetry 96 02/10/18 04:00 Oxygen Delivery Oxygen Delivery Room Air Medical Decision Making - Lab Data Result diagrams: 02/10/18 00:25 02/10/18 00:25 Lab Results 02/10/18 02/10/18 02/10/18 Range/Units 00:25 00:25 00:25 WBC 3.0 L (4.3-11.1) K/mcL RBC 2.68 L (4.19-5.50) M/mcL Hgb 8.7 L (12.9-16.9) g/dL Hct 26.8 L (37.5-50.1) % MCV 100.0 (83.0-100.0) fL MCH 32.5 (28.0-33.3) pg MCHC 32.5 (31.6-35.5) g/dL RDW 14.9 H (11.5-14.5) % Plt Count 27 L* (140-400) K/mcL MPV 10.4 (9.4-12.4) fL Immature Gran % 0.7 (0-4) % Seg Neutrophils % 70.0 % Lymphocytes % 9.5 % Monocytes % 14.5 % Eosinophils % 4.6 % Basophils % 0.7 % Neutrophils # 2.1 (1.6-8.9) K/mcL Lymphocytes # 0.3 L (0.6-4.6) K/mcL Monocytes # 0.4 (0.0-1.3) K/mcL Eosinophils # 0.1 (0.0-0.6) K/mcL Basophils # 0.0 (0.0-0.2) K/mcL PT 13.6 H (9.4-12.1) Seconds INR 1.3 Sodium 129 L (136-145) mEq/L Potassium 5.6 H (3.5-5.1) mEq/L Chloride 91 L (98-107) mEq/L Carbon Dioxide 27 (23-29) mEq/L BUN 65 H (8-23) mg/dL Creatinine 10.19 H (0.70-1.30) mg/dL Est GFR ( Amer) 6 L (> 60) Est GFR (Non-Af Amer) 5 L (> 60) BUN/Creatinine Ratio 6 (6-26) Glucose 170 H (70-105) mg/dL Calculated Osmolality 291 (280-300) Lactic Acid (0.5-2.2) mmol/L Calcium 7.5 L (8.6-10.3) mg/dL Phosphorus 5.1 H (2.7-4.5) mg/dL Magnesium 3.0 H (1.6-2.6) mg/dL Total Bilirubin 1.2 H (0.3-1.0) mg/dL Direct Bilirubin 0.6 H (0.0-0.2) mg/dL Indirect Bilirubin 0.6 (0.0-1.2) mg/dL AST 43 H (13-39) Units/L ALT 20 (7-52) Units/L Alkaline Phosphatase 211 H (34-104) Units/L Ammonia (16-53) mcmol/L Troponin I 0.03 (< 0.04) ng/mL Serum Total Protein 5.7 L (6.4-8.9) g/dL Albumin 2.6 L (3.5-5.7) g/dL Globulin 3.1 (2.4-3.5) g/dL Albumin/Globulin Ratio 0.8 L (1.1-2.2) Urine Color (Yellow) Urine Clarity (Clear) Urine pH (5.0-8.0) pH Units Ur Specific [place] (1.010-1.025) Urine Protein (Neg-Trace) mg/dL Urine Glucose (UA) (Normal) mg/dL Urine Ketones (Negative) mg/dL Urine Blood (Negative) Urine Nitrite (Negative) Urine Bilirubin (Negative) Urine Urobilinogen (Normal) mg/dL Ur Leukocyte Esterase (Negative) Urine Microscopic RBC (0-3) per hpf Urine Microscopic WBC (0-3) per hpf Ur Squamous Epith Cells (None-Few) per lpf Urine Bacteria (None-Few) per hpf Hyaline Casts (None-Few) per lpf Ur Culture Indicated? (NO) 02/10/18 02/10/18 02/10/18 Range/Units 00:25 00:36 04:08 WBC (4.3-11.1) K/mcL RBC (4.19-5.50) M/mcL Hgb (12.9-16.9) g/dL Hct (37.5-50.1) % MCV (83.0-100.0) fL MCH (28.0-33.3) pg MCHC (31.6-35.5) g/dL RDW (11.5-14.5) % Plt Count (140-400) K/mcL MPV (9.4-12.4) fL Immature Gran % (0-4) % Seg Neutrophils % % Lymphocytes % % Monocytes % % Eosinophils % % Basophils % % Neutrophils # (1.6-8.9) K/mcL Lymphocytes # (0.6-4.6) K/mcL Monocytes # (0.0-1.3) K/mcL Eosinophils # (0.0-0.6) K/mcL Basophils # (0.0-0.2) K/mcL PT (9.4-12.1) Seconds INR Sodium (136-145) mEq/L Potassium (3.5-5.1) mEq/L Chloride (98-107) mEq/L Carbon Dioxide (23-29) mEq/L BUN (8-23) mg/dL Creatinine (0.70-1.30) mg/dL Est GFR ( Amer) (> 60) Est GFR (Non-Af Amer) (> 60) BUN/Creatinine Ratio (6-26) Glucose (70-105) mg/dL Calculated Osmolality (280-300) Lactic Acid 1.4 (0.5-2.2) mmol/L Calcium (8.6-10.3) mg/dL Phosphorus (2.7-4.5) mg/dL Magnesium (1.6-2.6) mg/dL Total Bilirubin (0.3-1.0) mg/dL Direct Bilirubin (0.0-0.2) mg/dL Indirect Bilirubin (0.0-1.2) mg/dL AST (13-39) Units/L ALT (7-52) Units/L Alkaline Phosphatase (34-104) Units/L Ammonia 74 H (16-53) mcmol/L Troponin I (< 0.04) ng/mL Serum Total Protein (6.4-8.9) g/dL Albumin (3.5-5.7) g/dL Globulin (2.4-3.5) g/dL Albumin/Globulin Ratio (1.1-2.2) Urine Color Dark Yellow (Yellow) Urine Clarity Cloudy A (Clear) Urine pH 5.0 (5.0-8.0) pH Units Ur Specific [place] 1.020 (1.010-1.025) Urine Protein Negative (Neg-Trace) mg/dL Urine Glucose (UA) Normal (Normal) mg/dL Urine Ketones Trace H (Negative) mg/dL Urine Blood Moderate H (Negative) Urine Nitrite Negative (Negative) Urine Bilirubin Moderate H (Negative) Urine Urobilinogen Normal (Normal) mg/dL Ur Leukocyte Esterase Small H (Negative) Urine Microscopic RBC 15-30 H (0-3) per hpf Urine Microscopic WBC 5-15 H (0-3) per hpf Ur Squamous Epith Cells Many H (None-Few) per lpf Urine Bacteria None Seen (None-Few) per hpf Hyaline Casts None Seen (None-Few) per lpf Ur Culture Indicated? NO. A (NO)
--- NOTE | 2018-02-10 04:00 | Emergency Department Note ---
Disposition Clinical Impression: Weakness Disposition: Admitted As Inpatient Condition: Good General Adult HPI - General Chief complaint: ED General Medical Stated complaint: confusion Time Seen by Provider: 02/09/18 23:36 Source: patient, family, EMS Mode of arrival: EMS Limitations: altered mental status - History of Present Illness Pain Scale: 0 Improves with: nothing Worsens with: nothing Associated symptoms: Reports: denies other symptoms - Related Data Home Medications Medication Instructions Recorded Confirmed Buspirone HCl [Buspar] 5 mg PO BID 02/10/18 02/10/18 Calcium Acetate [Phos-LO] 667 mg PO 1-3XD 02/10/18 02/10/18 Cholecalciferol (D-3) [Vitamin D] 1,000 unit PO DAILY 02/10/18 02/10/18 Epoetin Kevon [Epogen] 30,000 unit IJ QWEEK 02/10/18 02/10/18 Folic Acid/Vit Bcomp,C [Dialyvite 1 each PO DAILY 02/10/18 02/10/18 Tablet] Furosemide [Lasix] 20 mg PO DAILY 02/10/18 02/10/18 Gabapentin [Neurontin] 300 mg PO DAILY 02/10/18 02/10/18 Omeprazole [PriLOSEC] 40 mg PO DAILY 02/10/18 02/10/18 Oxycodone HCl 5 mg PO Q6HR PRN 02/10/18 02/10/18 Simvastatin [Zocor] 10 mg PO HS 02/10/18 02/10/18 Tamsulosin [Flomax] 0.4 mg PO BID 02/10/18 02/10/18 Magnesium Oxide [Magnesium] 250 mg PO 1-2XD 02/12/18 02/12/18 Previous Rx's Medication Instructions Recorded Carvedilol [Coreg] 3.125 mg PO Q12HR #0 02/13/18 Lactulose 10 gm PO BID PRN #1000 ml 02/13/18 Midodrine HCl 2.5 mg PO QMWF #15 tablet 02/13/18 Allergies Allergy/AdvReac Type Severity Reaction Status Date / Time linezolid [From Zyvox] Allergy Weakness Verified 12/14/17 11:05 trimethoprim [From Bactrim] Allergy Weakness Verified 12/14/17 11:05 Past Medical History - Past Medical History Medical history: Reports: arthritis, cancer, cirrhosis, CHF, diabetes, dialysis , GERD, kidney stones, liver disease, renal disease, other Surgical history: Reports: angioplasty/stent, cholecystectomy, heart valve replacement (Bioprosthetic aortic vavle replacement in 2013), other (Skin cancer excision left hand 12/2014) Psychiatric history: Reports: anxiety, depression - Social History Smoking Status: Never smoker Smokeless Tobacco Status: No Alcohol use: Reports: none Drug use: Reports: none Physical Exam - General Limitations: altered mental status General appearance: in no apparent distress, lethargic Course Vital Signs Temperature 99.4 F 02/09/18 23:54 Pulse Rate 95 02/09/18 23:54 Respiratory Rate 18 02/09/18 23:54 Blood Pressure 102/68 02/09/18 23:54 O2 Sat by Pulse Oximetry 96 02/09/18 23:54 Temperature 98.3 F 02/14/18 07:10 Pulse Rate 97 02/14/18 07:10 Respiratory Rate 16 02/14/18 07:10 Blood Pressure 122/78 02/14/18 07:10 O2 Sat by Pulse Oximetry 99 02/14/18 09:03 Oxygen Delivery Oxygen Delivery Room Air Medical Decision Making - Lab Data Result diagrams: 02/13/18 05:32 02/13/18 05:32 Lab Results 02/10/18 02/10/18 02/10/18 Range/Units 00:25 00:25 00:25 WBC 3.0 L (4.3-11.1) K/mcL RBC 2.68 L (4.19-5.50) M/mcL Hgb 8.7 L (12.9-16.9) g/dL Hct 26.8 L (37.5-50.1) % MCV 100.0 (83.0-100.0) fL MCH 32.5 (28.0-33.3) pg MCHC 32.5 (31.6-35.5) g/dL RDW 14.9 H (11.5-14.5) % Plt Count 27 L* (140-400) K/mcL MPV 10.4 (9.4-12.4) fL Immature Gran % 0.7 (0-4) % Seg Neutrophils % 70.0 % Lymphocytes % 9.5 % Monocytes % 14.5 % Eosinophils % 4.6 % Basophils % 0.7 % Neutrophils # 2.1 (1.6-8.9) K/mcL Lymphocytes # 0.3 L (0.6-4.6) K/mcL Monocytes # 0.4 (0.0-1.3) K/mcL Eosinophils # 0.1 (0.0-0.6) K/mcL Basophils # 0.0 (0.0-0.2) K/mcL PT 13.6 H (9.4-12.1) Seconds INR 1.3 Sodium 129 L (136-145) mEq/L Potassium 5.6 H (3.5-5.1) mEq/L Chloride 91 L (98-107) mEq/L Carbon Dioxide 27 (23-29) mEq/L BUN 65 H (8-23) mg/dL Creatinine 10.19 H (0.70-1.30) mg/dL Est GFR ( Amer) 6 L (> 60) Est GFR (Non-Af Amer) 5 L (> 60) BUN/Creatinine Ratio 6 (6-26) Glucose 170 H (70-105) mg/dL Calculated Osmolality 291 (280-300) Lactic Acid (0.5-2.2) mmol/L Calcium 7.5 L (8.6-10.3) mg/dL Phosphorus 5.1 H (2.7-4.5) mg/dL Magnesium 3.0 H (1.6-2.6) mg/dL Total Bilirubin 1.2 H (0.3-1.0) mg/dL Direct Bilirubin 0.6 H (0.0-0.2) mg/dL Indirect Bilirubin 0.6 (0.0-1.2) mg/dL AST 43 H (13-39) Units/L ALT 20 (7-52) Units/L Alkaline Phosphatase 211 H (34-104) Units/L Ammonia (16-53) mcmol/L Troponin I 0.03 (< 0.04) ng/mL Serum Total Protein 5.7 L (6.4-8.9) g/dL Albumin 2.6 L (3.5-5.7) g/dL Globulin 3.1 (2.4-3.5) g/dL Albumin/Globulin Ratio 0.8 L (1.1-2.2) TSH 0.856 (0.340-5.600) mcIU/mL Urine Color (Yellow) Urine Clarity (Clear) Urine pH (5.0-8.0) pH Units Ur Specific [place] (1.010-1.025) Urine Protein (Neg-Trace) mg/dL Urine Glucose (UA) (Normal) mg/dL Urine Ketones (Negative) mg/dL Urine Blood (Negative) Urine Nitrite (Negative) Urine Bilirubin (Negative) Urine Urobilinogen (Normal) mg/dL Ur Leukocyte Esterase (Negative) Urine Microscopic RBC (0-3) per hpf Urine Microscopic WBC (0-3) per hpf Ur Squamous Epith Cells (None-Few) per lpf Urine Bacteria (None-Few) per hpf Hyaline Casts (None-Few) per lpf Ur Culture Indicated? (NO) 02/10/18 02/10/18 02/10/18 Range/Units 00:25 00:36 04:08 WBC (4.3-11.1) K/mcL RBC (4.19-5.50) M/mcL Hgb (12.9-16.9) g/dL Hct (37.5-50.1) % MCV (83.0-100.0) fL MCH (28.0-33.3) pg MCHC (31.6-35.5) g/dL RDW (11.5-14.5) % Plt Count (140-400) K/mcL MPV (9.4-12.4) fL Immature Gran % (0-4) % Seg Neutrophils % % Lymphocytes % % Monocytes % % Eosinophils % % Basophils % % Neutrophils # (1.6-8.9) K/mcL Lymphocytes # (0.6-4.6) K/mcL Monocytes # (0.0-1.3) K/mcL Eosinophils # (0.0-0.6) K/mcL Basophils # (0.0-0.2) K/mcL PT (9.4-12.1) Seconds INR Sodium (136-145) mEq/L Potassium (3.5-5.1) mEq/L Chloride (98-107) mEq/L Carbon Dioxide (23-29) mEq/L BUN (8-23) mg/dL Creatinine (0.70-1.30) mg/dL Est GFR ( Amer) (> 60) Est GFR (Non-Af Amer) (> 60) BUN/Creatinine Ratio (6-26) Glucose (70-105) mg/dL Calculated Osmolality (280-300) Lactic Acid 1.4 (0.5-2.2) mmol/L Calcium (8.6-10.3) mg/dL Phosphorus (2.7-4.5) mg/dL Magnesium (1.6-2.6) mg/dL Total Bilirubin (0.3-1.0) mg/dL Direct Bilirubin (0.0-0.2) mg/dL Indirect Bilirubin (0.0-1.2) mg/dL AST (13-39) Units/L ALT (7-52) Units/L Alkaline Phosphatase (34-104) Units/L Ammonia 74 H (16-53) mcmol/L Troponin I (< 0.04) ng/mL Serum Total Protein (6.4-8.9) g/dL Albumin (3.5-5.7) g/dL Globulin (2.4-3.5) g/dL Albumin/Globulin Ratio (1.1-2.2) TSH (0.340-5.600) mcIU/mL Urine Color Dark Yellow (Yellow) Urine Clarity Cloudy A (Clear) Urine pH 5.0 (5.0-8.0) pH Units Ur Specific [place] 1.020 (1.010-1.025) Urine Protein Negative (Neg-Trace) mg/dL Urine Glucose (UA) Normal (Normal) mg/dL Urine Ketones Trace H (Negative) mg/dL Urine Blood Moderate H (Negative) Urine Nitrite Negative (Negative) Urine Bilirubin Moderate H (Negative) Urine Urobilinogen Normal (Normal) mg/dL Ur Leukocyte Esterase Small H (Negative) Urine Microscopic RBC 15-30 H (0-3) per hpf Urine Microscopic WBC 5-15 H (0-3) per hpf Ur Squamous Epith Cells Many H (None-Few) per lpf Urine Bacteria None Seen (None-Few) per hpf Hyaline Casts None Seen (None-Few) per lpf Ur Culture Indicated? NO. A (NO) Attestation Statement - Attestation Attestation: I examined this patient and my medical decision-making was reviewed with the Resident Physician. I agree with the documented findings, disposition and treatment plan as described except to the extent set forth below. Patient presents with failure to thrive with history of cancer. He does do peritoneal dialysis. His cr is chronically elevated. Patient feels too weak to get anything done. He is significantly uremic. We would proceed with admission for palliative consult and social.
[2018-02-10] MEDS ORDERED: 0.9 % Sodium Chloride 500 ML IVC ONE (04:04)
--- NOTE | 2018-02-10 04:23 | Internal Med History&Physical ---
Date of Encounter: 02/10/18 Time of Encounter: 04:13 Internal Medicine - H&P: HPI Chief complaint: weakenss Admitted From: Emergency Dept Plans for Post Hospital Care: Home History of present illness: Mr. Daly is a 77 year old male with history of hepatocellular carcinoma since 2014 s/p TACE and ablation follows with both [facility] and Dr. Barillas who recently had a recurrence of disease with plans for beads therapy, history of ESRD on PD but also has a fistula if needed, pancytopenia, liver cirrhosis, diastolic HF who presents with lethargy, confusion, generalized deconditioning. Patient has not been eating much. He said he did not want to be in the hospital but family wanted to bring him in. He was agreeable to basic labs in the ED and a CT head since family thought he was confused. CT head was with nothing acute. The patient has been considerably lethargic sleeping up to 15 hours a day. He has some body twitching that he gets with low calcium according to him. Calcium was 7.5 in ED with albumin of 2.6. Rest of labs showed pancytopenia as before. BUN is 65 and creatinine 10.19. Those are about identical to labs from [facility] about a month ago but above baseline compared to our labs. K 5.6, Na 129. No reported fever, headache, blurry vision. abdominal pain , chest pain, shortness of breath, abdominal pain, urinary symptoms. His daughter does his PD dialysis and has not missed day except for last night since they had to bring the patient to the ED. Past Med Surg Social Fam HX - Past Medical History Medical history: arthritis, cancer, cirrhosis, CHF, diabetes, dialysis, GERD, kidney stones, liver disease, renal disease, other Psychiatric history: anxiety, depression - Past Surgical History Surgical History: angioplasty/stent, cholecystectomy, heart valve replacement ( Bioprosthetic aortic vavle replacement in 2013), other (Skin cancer excision left hand 12/2014) - Social History Smoking Status: Never smoker Smokeless Tobacco Status: No Alcohol use: none Drug use: none - Family History Mother Adopted: No Living Status: Hx Family Cardiac Disorders: Yes (hypertension) Hx Family Endocrine Disorder: Yes (diabetes) Father Living Status: Hx Family Cardiac Disorders: Yes (hypertension, [place]) Internal Medicine - H&P: Meds 3 Allergy/AdvReac Type Severity Reaction Status Date / Time linezolid [From Zyvox] Allergy Weakness Verified 12/14/17 11:05 trimethoprim [From Bactrim] Allergy Weakness Verified 12/14/17 11:05 All Systems PM: A 10-system review of systems was performed and is negative for pertinent findings except as documented above in the HPI. Review of systems: All systems reviewed are negative except as mentioned above. - Constitutional Vitals: Temp Pulse Resp BP Pulse Ox 99.4 F 95 18 102/68 96 02/09/18 23:54 02/09/18 23:54 02/09/18 23:54 02/09/18 23:54 02/10/18 00:17 Exam: GEN: NAD, lethargic. HEENT: AT, NC, No cyanosis, oral mucosa is moist, No JVD Lymphatics: No lymphadenoapthy Eyes: Extrocular muscles intact, anicteric CVS:RRR. S1, S2, No m/r/g RESP: CTAB ABD: Soft, NT, ND, +BS. PD catheter noted EXT: No edema, No rashes, 2+ DP NEURO: Nonfocal, CN II-XII intact, No focal motor or sensory deficits Psych: Cooperative, Not anxious or depressed Internal Med - H&P Results - Labs CBC & Chem 7: 02/10/18 00:25 02/10/18 00:25 Labs: Short CBC 02/10/18 Range/Units 00:25 WBC 3.0 L (4.3-11.1) K/mcL Hgb 8.7 L (12.9-16.9) g/dL Hct 26.8 L (37.5-50.1) % Plt Count 27 L* (140-400) K/mcL Neutrophils # 2.1 (1.6-8.9) K/mcL BMP 02/10/18 00:25 Sodium 129 L Potassium 5.6 H Chloride 91 L Carbon Dioxide 27 BUN 65 H Creatinine 10.19 H Glucose 170 H Calcium 7.5 L Cardiac Enzymes 02/10/18 Range/Units 00:25 Troponin I 0.03 (< 0.04) ng/mL Liver Function 02/10/18 Range/Units 00:25 Total Bilirubin 1.2 H (0.3-1.0) mg/dL Direct Bilirubin 0.6 H (0.0-0.2) mg/dL AST 43 H (13-39) Units/L ALT 20 (7-52) Units/L Alkaline Phosphatase 211 H (34-104) Units/L Albumin 2.6 L (3.5-5.7) g/dL Urine 02/10/18 Range/Units 00:36 Urine Color Dark Yellow (Yellow) Urine Clarity Cloudy A (Clear) Urine pH 5.0 (5.0-8.0) pH Units Ur Specific [place] 1.020 (1.010-1.025) Urine Protein Negative (Neg-Trace) mg/dL Urine Glucose (UA) Normal (Normal) mg/dL - Impressions ITS Impressions Head CT 02/10/18 01:33 IMPRESSION: Small vessel chronic ischemic changes without acute hemorrhage or definite evidence for acute ischemia. D/ / Boyd العلي MD / Boyd العلي MD Interpreting Provider: Boyd العلي MD Chest X-Ray 02/10/18 23:38 IMPRESSION: Stable portable study. D/ / Brianne Landers Cha, MD / Brianne Landers Cha, MD Interpreting Provider: Brianne Landers Cha, MD - Assessment and plan (1) Generalized weakness Current Visit: Yes Status: Acute Assessment and plan: Had an extensive discussion with the daughter in the ED conference room. They know their dad is not doing well. Patient body seems to be shutting down. He is dehydrated. Spoke to family about getting PT/OT but the need to have palliative involved to help with making decision about where we go from here. Will c/s palliative and oncology to help with decision making. (2) Hyperkalemia Current Visit: No Status: Resolved Assessment and plan: mildly elevated. would give kayexalate but unsure if he would take. Will give dextrose and insulin. shoud fix with dialysis. (3) Hyponatremia Current Visit: No Status: Acute Assessment and plan: chronic. Will monitor. patient is ESRD. Was given 500 cc bolus in ED. (4) ESRD (end stage renal disease) on dialysis Current Visit: No Status: Chronic Assessment and plan: c/w nephrology. (5) Liver cancer Current Visit: No Status: Chronic Assessment and plan: Seems to have had a recurrence of the cancer with plans for more chemo. Patient is in no shape for any more treatment. will ask oncology to see and help with decision making. Qualifiers: Liver malignancy type: hepatocellular carcinoma Qualified Code(s): C22.0 - Liver cell carcinoma (6) Pancytopenia Current Visit: No Status: Chronic Assessment and plan: Seems to be around baseline. Will monitor (7) DVT prophylaxis Current Visit: No Status: Acute Assessment and plan: scds - Time Spent With Patient Total time spent is greater than 50% in coordination of care (as documented) at patient's floor/unit and/or counseling patient:
[2018-02-10] MEDS ORDERED: Insulin Human Regular 10 UNIT in 0.9 % Sodium Chloride 10 ML IV ONE (04:27)
[2018-02-10] MEDS ORDERED: *HR* Dextrose 50 % in Water (Syg) 50 ML SYRINGE IVP ONE (04:28)
[2018-02-10] MEDS ORDERED: Acetaminophen 325 MG TABLET PO PRN (04:28)
[2018-02-10] MEDS ORDERED: Naloxone 0.4 MG/ML INJ IVP PRN (04:28)
[2018-02-10 05:19] LABS: Thyroid Stimulating Hormone 0.856 mcIU/mL (0.340-5.600)
[2018-02-10] MEDS ORDERED: *HR* OxyCODONE Immed Rel 5 MG TABLET PO PRN ×2 (05:51→08:17)
[2018-02-10] MEDS ORDERED: [UNRECOGNIZED DRUG - OTHER] PO SCH (06:00)
[2018-02-10] MEDS ORDERED: MAG AA CHELATE PO SCH (06:00)
[2018-02-10] MEDS ORDERED: MAGNESIUM OXIDE PO SCH (06:00)
[2018-02-10] MEDS: Renal Vitamin 1 MG CAPSULE PO SCH (08:32)
[2018-02-10] MEDS: Gabapentin 300 MG CAPSULE PO SCH (08:32)
[2018-02-10] MEDS: Cholecalciferol (D-3) 1,000 UNIT TABLET PO SCH (08:32)
[2018-02-10] MEDS: Calcium Acetate 667 MG CAPSULE PO SCH ×3 (08:32→17:09)
[2018-02-10] MEDS ORDERED: Furosemide 20 MG TABLET PO SCH (09:00)
[2018-02-10] MEDS ORDERED: DIALYVITE PO SCH (09:00)
--- NOTE | 2018-02-10 10:28 | Nephrology Consult Note ---
Date of Encounter: 02/10/18 Time of Encounter: 09:10 Assessment and Plan (1) ESRD (end stage renal disease) Status: Chronic ESRD on PD cycler. His AMS is likely from liver disease (his ammonia was elevated) and relatively poor clearance for an elderly/frail gentleman. Recommend starting PD manual exchanges now and on the next exchange to have PD fluid checked for cell ct, diff and cx, see below -- doubt peritonitis. He was previously on HD and may need to convert to HD at some point Thank you for consulting the [facility] service. Will follow closely with you. (2) Generalized weakness Status: Acute Suspect multifactorial: liver and renal failure and anemia. (3) Hypocalcemia Status: Acute Will adjust with PD (4) Hyponatremia Status: Acute Will adjust with PD. Likely multifactorial: liver failure and hypervolemic. (5) Liver cirrhosis Status: Acute As per primary. Qualifiers: Hepatic cirrhosis type: unspecified hepatic cirrhosis Ascites presence: without ascites Qualified Code(s): K74.60 - Unspecified cirrhosis of liver (6) Peritoneal dialysis catheter in situ Status: Chronic Doubt Peritonitis since his PD fluids have been completely normal, per the daughter MIGUEL who cares for and mgts his PD exchanges. Exit site was clear. Will nonetheless screen PD fluid for cell count, diff, culture. (7) Anemia in CKD (chronic kidney disease) Status: Chronic Goal Hgb is 10-11 in ESRD. Qualifiers: Chronic kidney disease stage: on chronic dialysis Qualified Code(s): N18.6 - End stage renal disease; D63.1 - Anemia in chronic kidney disease; Z99.2 - Dependence on renal dialysis (8) Hyperkalemia Status: Resolved Due the several electrolyte derangements, I recommend not waiting for nocturnal PD cycler tonight and start daytime PD manual exchanges to immediately start correcting the electrolytes and lowering his risks for safety. History of Present Illness - Reason for Consult Consult date: 02/10/18 end stage renal disease Requesting physician: Jo Prince - Chief Complaint ESRD, Confusion, Elevated Ammonia level - History of Present Illness Serafin Daly is a very pleasant 77 y/o WM with a pmh of ESRD on PD ( followed by Dr. Huntley), HTN, Liver cirrhosis and CA (followed by the [facility] ) and et al who presented with AMS. He is known to me from prior hospitalizations. HPI and Subjective histories are somewhat limited but were filled in by chart hx, personal knowledge of the pt, and info from one of the pt 's daughters (the POA). The Daughter said that he has been maintaining his PD regimen without problems, but recently transitioned to an extra daytime dwell d/ t poor clearance. She helps him with his PD and denied recent visible fibrin or blood. She said that he has not complained of new abd pain. His AMS started about "two weeks" ago but started to acute decline about two days ago. He has not had any recent peritonitis, she affirmed. Past Med Surg Social Fam HX - Past Medical History Medical history: arthritis, cancer, cirrhosis, CHF, diabetes, dialysis, GERD, kidney stones, liver disease, renal disease, other Psychiatric history: anxiety, depression - Past Surgical History Surgical History: angioplasty/stent, cholecystectomy, heart valve replacement, other - Social History Smoking Status: Never smoker Smokeless Tobacco Status: No Alcohol use: none Drug use: none - Family History Mother Adopted: No Living Status: Hx Family Cardiac Disorders: Yes (hypertension) Hx Family Endocrine Disorder: Yes (diabetes) Father Living Status: Hx Family Cardiac Disorders: Yes (hypertension, [place]) Medications and Allergies Buspirone HCl [Buspar] 5 mg PO BID 02/10/18 [History] Calcium Acetate [Phos-LO] 667 mg PO 1-3XD 02/10/18 [History] Cholecalciferol (D-3) [Vitamin D] 1,000 unit PO DAILY 02/10/18 [History] Epoetin Kevon [Epogen] 30,000 unit IJ QWEEK 02/10/18 [History] Folic Acid/Vit Bcomp,C [Dialyvite Tablet] 1 each PO DAILY 02/10/18 [History] Furosemide [Lasix] 20 mg PO DAILY 02/10/18 [History] Gabapentin [Neurontin] 300 mg PO DAILY 02/10/18 [History] Omeprazole [PriLOSEC] 40 mg PO DAILY 02/10/18 [History] Oxycodone HCl 5 mg PO Q6HR PRN 02/10/18 [History] Simvastatin [Zocor] 10 mg PO HS 02/10/18 [History] Tamsulosin [Flomax] 0.4 mg PO BID 02/10/18 [History] Magnesium Oxide [Magnesium] 250 mg PO 1-2XD 02/12/18 [History] Carvedilol [Coreg] 3.125 mg PO Q12HR #0 02/13/18 [Rx] Lactulose 10 gm PO BID PRN #1000 ml 02/13/18 [Rx] Midodrine HCl 2.5 mg PO QMWF #15 tablet 02/13/18 [Rx] 3 Allergy/AdvReac Type Severity Reaction Status Date / Time linezolid [From Zyvox] Allergy Weakness Verified 12/14/17 11:05 trimethoprim [From Bactrim] Allergy Weakness Verified 12/14/17 11:05 Review of Systems ROS unobtainable: due to mental status Exam - Vital Signs Vital signs: Initial Vital Signs Temp Pulse Resp BP Pulse Ox 99.4 F 95 18 102/68 96 02/09/18 23:54 02/09/18 23:54 02/09/18 23:54 02/09/18 23:54 02/09/18 23:54 Vital Signs - Last 8 Hours Temp Pulse Resp BP Pulse Ox 02/10/18 07:05 99.8 F H 89 19 93/52 95 02/10/18 05:58 99.7 F H 89 18 113/68 95 02/10/18 05:27 18 96/56 Intake and Output 02/09/18 02/10/18 02/10/18 23:59 07:59 15:59 Intake Total 110 / 110 Balance 110 / 110 Intake: IV Fluids 110 / 110 Calcium Gluconate 1,000 MG In 0 110 / 110 .9 % Sodium Chloride 100 ML @ 220 mls/hr IVPB ONCE ONE Rx#: [id number] - General Appearance General appearance: well-developed, obese, chronically ill, fatigue, frail, comatose EENT: ATNC, PERRL, mucous membranes dry Neck: supple Respiratory: clear Cardiology: edema (1+ pedal edema b/l), normal S1, normal S2 - Dialysis Access Dialysis Vascular Access: Arteriovenous Fistula (RUE) thrill: Yes bruit: Yes Additional Comments: He also has a PD catheter: exitsite was clear without erythema, exudates or TTP. Gastrointestinal: normoactive bowel sounds, no tenderness, no guarding, hepatomegaly Integumentary: warm and dry Neurologic: asterixis, confused, disoriented Musculoskeletal: no erythema, no cyanosis, no clubbing Results - Lab Results 02/13/18 05:32 02/13/18 05:32 Most recent lab results Calcium 7.5 mg/dL (8.6-10.3) L 02/10/18 00:25 Phosphorus 5.1 mg/dL (2.7-4.5) H 02/10/18 00:25 Magnesium 3.0 mg/dL (1.6-2.6) H 02/10/18 00:25 I reviewed his outpt [facility] notes by Dr. Huntley, inpt progress notes, labs, med lists, vitals signs and imaging. Consult Discharge Plan - Plan Instructions: Acute Respiratory Distress Syndrome (DC) Referrals: Tiff Villa MD [Partnered Physician] - (Follow up on your normal HD days) Oseas Graham MD [Primary Care Provider] - 02/21/18 10:15 am Prescriptions: Lactulose 10 gm PO BID PRN #1000 ml PRN Reason: coonstipation Midodrine HCl 2.5 mg PO QMWF #15 tablet
[2018-02-10] MEDS ORDERED: 0.9 % Sodium Chloride 250 ML IVC ONE (10:29)
[2018-02-10] MEDS: Perit. Dialysis with Dex 1.5 % 2,000 ML PERITONEAL SCH ×2 (12:48→19:59)
[2018-02-10] MEDS ORDERED: Lactulose Oral Soln 20 GM/30 ML UDC PO ONE (13:58)
--- NOTE | 2018-02-10 14:10 | Palliative - Consult Note ---
Date of Encounter: 02/10/18 Time of Encounter: 14:00 - Assessment and Plan (1) Cancer associated pain Current Visit: Yes Status: Acute Assessment and plan: Patient daughter at bedside states that he takes Oxycodone on an every 6 hr schedule at home. She expresses concern that he does not have this prescribed here scheduled, and that with his mental status, he does not remember to ask for it, but if he goes much longer than 6 hours, his pain gets out of control. Will return Oxycodone to an every 6 hour scheduled at 09/26/02/04 as he takes at home and monitor. (2) Counseling regarding advanced care planning and goals of care Current Visit: Yes Status: Acute Assessment and plan: Patient has and 5 children. All but one daughter lives locally and very close to him. He has home health in place, and one daughter is an home health aide that participates in his care. He has need to transfer wheelchair, and social service has already met with them. They had goals of care discussion recently with the team at [facility] and still desire to proceed with treatment as planned for on 02/16. His code status has already been established as DNR/DNI. We did have discussion regarding getting further support structure in place if he gets to the point [facility] has nothing left to offer, and also regarding dialysis and hospice care. Daughter at bedside acknowledged understanding and had no questions. They are hoping mental status improves and he can continue treatment. Awaiting cultures regarding possible peritonitis. (3) Fever of unknown origin Current Visit: No Status: Resolved (4) Renal failure, chronic Current Visit: No Status: Acute Qualifiers: Chronic kidney disease stage: stage 4 (severe) Qualified Code(s): N18.4 - Chronic kidney disease, stage 4 (severe) (5) Liver cirrhosis Current Visit: No Status: Acute Qualifiers: Qualified Code(s): K74.60 - Unspecified cirrhosis of liver (6) Hepatocellular carcinoma Current Visit: No Status: Chronic Palliative-CN HPI - Data of Consult Consult date: 02/10/18 Requesting Physician: Jo Prince MD Primary Care Provider: Oseas Graham MD - Consult Narrative History of present illness: Mr. Daly is a 77 year old male with a history of hepatocellular carcinoma diagnosed in 2014, and also has end stage renal disease, and has been a peritoneal dialysis patient for approx 2 years. He is treated for his cancer at [facility] and actually has appt scheduled there on 02/16. He has had TACE/ ablation. Dr. Barillas from [facility] also has seen pt in the past. He presented with altered mental status. 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 He had low grade fevers as well, and poor appetite. Daughter describes some fibrin in peritoneal fluid a few weeks ago. Nephrology has been consulted and have already been in to see pt - Dr. Winn has already ordered cultures to r/o peritonitis. His lives with him , and he has several children that lives close by. He takes Oxycodone around the clock for pain at home. Upon my visit, he is quite drowsy - daughter states he was up to BSC for a while , and it wore him out. Had large BM. He does arouse with tactile stimulation, but drifts right back to sleep. Denies pain or discomfort at this time. On room air. Daughter at bedside. She states upon admission, he had "twiching" which has improved after calcium replacement. CC: Jo Prince MD Past Med Surg Social Fam HX - Past Medical History Medical history: arthritis, cancer, cirrhosis, CHF, diabetes, dialysis, GERD, kidney stones, liver disease, renal disease, other Psychiatric history: anxiety, depression - Past Surgical History Surgical History: angioplasty/stent, cholecystectomy, heart valve replacement, other - Social History Smoking Status: Never smoker Smokeless Tobacco Status: No Alcohol use: none Drug use: none - Family History Mother Adopted: No Living Status: Hx Family Cardiac Disorders: Yes (hypertension) Hx Family Endocrine Disorder: Yes (diabetes) Father Living Status: Hx Family Cardiac Disorders: Yes (hypertension, NH) Medications and Allergies Buspirone HCl [Buspar] 5 mg PO BID 02/10/18 [History] Calcium Acetate [Phos-LO] 667 mg PO 1-3XD 02/10/18 [History] Carvedilol [Coreg] 6.25 mg PO Q12HR 02/10/18 [History] Cholecalciferol (D-3) [Vitamin D] 1,000 unit PO DAILY 02/10/18 [History] Epoetin Kevon [Epogen] 30,000 unit IJ QWEEK 02/10/18 [History] Folic Acid/Vit Bcomp,C [Dialyvite Tablet] 1 each PO DAILY 02/10/18 [History] Furosemide [Lasix] 20 mg PO DAILY 02/10/18 [History] Gabapentin [Neurontin] 300 mg PO DAILY 02/10/18 [History] Magnesium Oxide/Mag Aa Chelate [Magnesium 300 mg Capsule] 250 mg PO 1-2XD [History] Omeprazole [PriLOSEC] 40 mg PO DAILY 02/10/18 [History] Oxycodone HCl 5 mg PO Q6HR PRN 02/10/18 [History] Simvastatin [Zocor] 10 mg PO HS 02/10/18 [History] Tamsulosin [Flomax] 0.4 mg PO BID 02/10/18 [History] 3 Allergy/AdvReac Type Severity Reaction Status Date / Time linezolid [From Zyvox] Allergy Weakness Verified 12/14/17 11:05 trimethoprim [From Bactrim] Allergy Weakness Verified 12/14/17 11:05 ROS unobtainable: due to mental status Palliative Care-Exam - Constitutional Vitals: Temp Pulse Resp BP Pulse Ox 99.0 F 83 14 114/63 98 02/10/18 10:54 02/10/18 10:54 02/10/18 10:54 02/10/18 10:54 02/10/18 10:54 General appearance: Present: no acute distress - Head Head Exam: Present: normal inspection, normocephalic - Respiratory Respiratory exam: Present: decreased breath sounds, CTAB - Cardiovascular Cardiovascular exam: Present: +S1, +S2 - GI/Abdominal Exam additional comments: PD cath in place - Extremities Exam Extremities exam: Present: normal capillary refill, normal inspection - Neurological Exam Neurological exam: Present: alert, oriented X3, strengths equal and symetr throughout - Skin Skin exam: Present: dry, pallor, warm Internal Medicine - CN: Reslt - Labs CBC & Chem 7: 02/10/18 00:25 02/10/18 00:25 - ABG Interpretation ABG results: PT/INR, D-dimer PT 13.6 Seconds (9.4-12.1) H 02/10/18 00:25 - Impressions Impressions Chest X-Ray 02/10/18 23:38 IMPRESSION: Stable portable study. D/ / Brianne Landers Cha, MD / Brianne Landers Cha, MD Interpreting Provider: Brianne Landers Cha, MD Consult Discharge Plan - Plan Referrals: Oseas Graham MD [Primary Care Provider] - Palliative Quality Palliative Quality: Screen for Code Status: Yes, Screen for Goals of Care: Yes, Screen for Pain: Yes, If Pain Regimen Started, Initiate Bowel Regimen: NA, Screen for Nausea/Vomitting: Yes
--- NOTE | 2018-02-10 16:49 | Internal Med Progress Note ---
Date of Encounter: 02/10/18 Time of Encounter: 12:00 - Assessment and plan (1) Generalized weakness Current Visit: Yes Status: Acute Assessment and plan: concerning for SBP Pt remained afebrile, no abd pain so no need to initiate systemic abx now will wait for PD fluid cell count and gram staining (2) ESRD (end stage renal disease) on dialysis Current Visit: No Status: Chronic Assessment and plan: Not a best candidate for PD talked to Nephro about this Dr. Winn will discuss about HD with the family in AM he does have AV fistula (3) Hepatic encephalopathy Current Visit: Yes Status: Acute Assessment and plan: Started him on Lactulose will cont trend on Ammonia level (4) Hyponatremia Current Visit: No Status: Acute Assessment and plan: chronic. Will Cont monitor (5) Hyperkalemia Current Visit: No Status: Resolved Assessment and plan: mildly elevated Talked to nephro .. planning on doing manual exchange PD tonight will give Lactulose (6) Liver cancer Current Visit: No Status: Chronic Assessment and plan: Seems to have had a recurrence of the cancer with plans for more chemo Talked to heme onc.. Recommend to f/u with [facility] as an out pt for further chemo Qualifiers: Liver malignancy type: hepatocellular carcinoma Qualified Code(s): C22.0 - Liver cell carcinoma (7) DVT prophylaxis Current Visit: No Status: Acute Assessment and plan: scds (8) Pancytopenia Current Visit: No Status: Chronic Assessment and plan: Seems to be around baseline. Will monitor - Time Spent With Patient Total time spent is greater than 50% in coordination of care (as documented) at patient's floor/unit and/or counseling patient: - Subjective Interval history: Mr. Daly is a 77 year old male with history of hepatocellular carcinoma since 2015 s/p TACE and ablation follows with both [facility] and Dr. Barillas who recently had a recurrence of disease with plans for beads therapy, history of ESRD on PD but also has a fistula if needed, pancytopenia, liver cirrhosis, diastolic HF who presents with lethargy, confusion, generalized deconditioning. Patient has not been eating much. He said he did not want to be in the hospital but family wanted to bring him in. He was agreeable to basic labs in the ED and a CT head since family thought he was confused. CT head was with nothing acute. The patient has been considerably lethargic sleeping up to 15 hours a day. He has some body twitching that he gets with low calcium according to him. Calcium was 7.5 in ED with albumin of 2.6. Rest of labs showed pancytopenia as before. BUN is 65 and creatinine 10.19. Those are about identical to labs from [facility] about a month ago but above baseline compared to our labs. K 5.6, Na 129. No reported fever, headache, blurry vision. abdominal pain , chest pain, shortness of breath, abdominal pain, urinary symptoms. His daughter does his PD dialysis and has not missed day except for last night since they had to bring the patient to the ED. Now pt is alert, awake and O x 3. Denied any CP / SOB. Denied any abdominal pain. Does not want to take kayexalate. - Constitutional Vitals: Temp Pulse Resp BP Pulse Ox 97.4 F L 108 16 112/69 97 02/10/18 15:46 02/10/18 15:46 02/10/18 15:46 02/10/18 15:46 02/10/18 15:46 General appearance: Present: A&O X 3, no acute distress, answers questions appropriately Exam: looks weak and lethargic - Head Head exam: Present: atraumatic - Neck Neck exam general surgery: Present: supple - Respiratory Respiratory exam: Present: decreased breath sounds. Absent: rales, respiratory distress, rhonchi, wheezes - Cardiovascular Cardiovascular exam: Present: +S1, +S2. Absent: tachycardia - GI/Abdominal GI/Abdominal exam: Present: normal bowel sounds, soft. Absent: rebound, rigid, tenderness - Extremities Exam Extremities exam: Absent: calf tenderness, pedal edema, tenderness - Back Exam Back exam: Absent: CVA tenderness (L), CVA tenderness (R) - Neurological Exam Neurological exam: Present: alert, oriented X3 - Psychiatric Psychiatric exam: Present: normal affect, normal mood Internal Medicine: Result - Labs CBC & Chem 7: 02/10/18 00:25 02/10/18 00:25 - ABG Interpretation ABG results: PT/INR, D-dimer PT 13.6 Seconds (9.4-12.1) H 02/10/18 00:25 - Impressions Impressions Chest X-Ray 02/10/18 23:38 IMPRESSION: Stable portable study. D/ / Brianne Landers Cha, MD / Brianne Landers Cha, MD Interpreting Provider: Brianne Landers Cha, MD Consult Discharge Plan - Plan Referrals: Oseas Graham MD [Primary Care Provider] -
[2018-02-10] MEDS: *HR* OxyCODONE Immed Rel 5 MG TABLET PO SCH ×2 (17:09→22:59)
[2018-02-10 23:27] LABS: Appearance of Peritoneal Fl CLEAR (Clear); RBC,Peritoneal Fluid < 0 RBC/mcL (No Ref Range)
[2018-02-11] MEDS: Perit. Dialysis with Dex 1.5 % 2,000 ML PERITONEAL SCH ×3 (01:57→16:33)
[2018-02-11 05:13] LABS: Basophils % 0.9 %; Eosinophils # 0.1 K/mcL (0.0-0.6); Eosinophils % 5.2 %; Hematocrit 23.4 % (37.5-50.1); Hemoglobin 7.6 g/dL (12.9-16.9); Immature Granulocytes % 0.9 % (0-4); Immature Platelets 3.3 % (1.1-6.1); Lymphocytes # 0.3 K/mcL (0.6-4.6); Lymphocytes % 13.9 %; Mean Corpuscular HGB Conc 32.5 g/dL (31.6-35.5); Mean Corpuscular Hemoglobin 32.6 pg (28.0-33.3); Mean Corpuscular Volume 100.4 fL (83.0-100.0); Mean Platelet Volume 10.6 fL (9.4-12.4); Monocytes # 0.3 K/mcL (0.0-1.3); Monocytes % 14.3 %; Neutrophils # 1.5 K/mcL (1.6-8.9); Red Blood Count 2.33 M/mcL (4.19-5.50); Red Cell Distribution Width 14.9 % (11.5-14.5); Segmented Neutrophils % 64.8 %
[2018-02-11 05:21] LABS: Platelet Count 26 K/mcL (140-400)
[2018-02-11 05:35] LABS: Albumin 2.4 g/dL (3.5-5.7); Albumin/Globulin Ratio 0.9 (1.1-2.2); Bilirubin,Total 0.9 mg/dL (0.3-1.0); Calcium 7.5 mg/dL (8.6-10.3); Globulin 2.7 g/dL (2.4-3.5); Magnesium 2.9 mg/dL (1.6-2.6); Total Protein 5.1 g/dL (6.4-8.9)
[2018-02-11 05:37] LABS: Platelet Estimate Marked Decrease (Normal)
[2018-02-11] MEDS: *HR* OxyCODONE Immed Rel 5 MG TABLET PO SCH ×3 (06:13→16:34)
--- NOTE | 2018-02-11 06:33 | Electrocardiograph Report ---
[address] [place], [place] [address] Test Date: 2018-02-10 Pat Name: Serafin Daly Department: 102 Room: 2A Gender: M Resourcing Advisor: Ney : 1940 Requested By: [id number] Order Number: [id number] Reading MD: Zachary Reilly Measurements Intervals [place] Rate: 93 P: 6 [place]: 223 QRS: -17 QRSD: 103 T: 93 QT: 356 QTc: 407 Interpretive Statements SINUS RHYTHM WITH FIRST DEGREE AV BLOCK Electronically Signed On 02-11-2018 6:31:47 EDT by Zachary Reilly
--- NOTE | 2018-02-11 08:05 | Palliative Progress Note ---
Date of Encounter: 02/11/18 Time of Encounter: 07:20 - Assessment and plan (1) Cancer associated pain Current Visit: Yes Status: Acute Assessment and plan: Per family patient's (2) Counseling regarding advanced care planning and goals of care Current Visit: Yes Status: Acute Assessment and plan: She is DNR CCA DNI, with patient's daughter who is in the room and is to continue aggressive care at the [facility]. They are looking at doing some intrahepatic radiation therapy as early as next week if the patient is up to it. plan of care is to continue aggressive care at the [facility] for as long as they can and then consider transition to hospice at that time. (3) ESRD (end stage renal disease) on dialysis Current Visit: No Status: Chronic Assessment and plan: Is to continue aggressive care until the cancer therapy is no longer available. Kidney function about the same continue current therapy. (4) Hepatocellular carcinoma Current Visit: No Status: Chronic Assessment and plan: Plan is to continue aggressive care at the [facility] for his long as is possible. [place] understands that they may switch over to hospice whenever that therapy is no longer available her personal longer effective. (5) Liver cancer Current Visit: No Status: Chronic Assessment and plan: As above Qualifiers: Liver malignancy type: hepatocellular carcinoma Qualified Code(s): C22.0 - Liver cell carcinoma - Time Spent With Patient Total time spent is greater than 50% in coordination of care (as documented) at patient's floor/unit and/or counseling patient: - Subjective Interval history: Agent is sleeping soundly, per family his pain is under good control. - Constitutional Vitals: Abnormal lab results WBC 2.3 K/mcL (4.3-11.1) L 02/11/18 04:59 RBC 2.33 M/mcL (4.19-5.50) L 02/11/18 04:59 Hgb 7.6 g/dL (12.9-16.9) L 02/11/18 04:59 Hct 23.4 % (37.5-50.1) L 02/11/18 04:59 MCV 100.4 fL (83.0-100.0) H 02/11/18 04:59 RDW 14.9 % (11.5-14.5) H 02/11/18 04:59 Plt Count 26 K/mcL (140-400) L* 02/11/18 04:59 Neutrophils # 1.5 K/mcL (1.6-8.9) L 02/11/18 04:59 Lymphocytes # 0.3 K/mcL (0.6-4.6) L 02/11/18 04:59 Platelet Estimate Marked Decrease (Normal) L 02/11/18 04:59 PT 13.6 Seconds (9.4-12.1) H 02/10/18 00:25 Sodium 128 mEq/L (136-145) L 02/11/18 04:59 Chloride 92 mEq/L (98-107) L 02/11/18 04:59 BUN 70 mg/dL (8-23) H 02/11/18 04:59 Creatinine 10.10 mg/dL (0.70-1.30) H 02/11/18 04:59 Est GFR ( Amer) 6 (> 60) L 02/11/18 04:59 Est GFR (Non-Af Amer) 5 (> 60) L 02/11/18 04:59 Glucose 164 mg/dL (70-105) H 02/11/18 04:59 Calcium 7.5 mg/dL (8.6-10.3) L 02/11/18 04:59 Phosphorus 5.1 mg/dL (2.7-4.5) H 02/10/18 00:25 Magnesium 2.9 mg/dL (1.6-2.6) H 02/11/18 04:59 Direct Bilirubin 0.6 mg/dL (0.0-0.2) H 02/10/18 00:25 Alkaline Phosphatase 178 Units/L (34-104) H 02/11/18 04:59 Ammonia 55 mcmol/L (16-53) H 02/11/18 04:59 Serum Total Protein 5.1 g/dL (6.4-8.9) L 02/11/18 04:59 Albumin 2.4 g/dL (3.5-5.7) L 02/11/18 04:59 Albumin/Globulin Ratio 0.9 (1.1-2.2) L 02/11/18 04:59 Urine Clarity Cloudy (Clear) A 02/10/18 00:36 Urine Ketones Trace mg/dL (Negative) H 02/10/18 00:36 Urine Blood Moderate (Negative) H 02/10/18 00:36 Urine Bilirubin Moderate (Negative) H 02/10/18 00:36 Ur Leukocyte Esterase Small (Negative) H 02/10/18 00:36 Urine Microscopic RBC 15-30 per hpf (0-3) H 02/10/18 00:36 Urine Microscopic WBC 5-15 per hpf (0-3) H 02/10/18 00:36 Ur Squamous Epith Cells Many per lpf (None-Few) H 02/10/18 00:36 Ur Culture Indicated? NO. (NO) A 02/10/18 00:36 General appearance: Present: no acute distress - Respiratory Respiratory exam: Present: decreased breath sounds - Cardiovascular Cardiovascular exam: Present: RRR - GI/Abdominal GI/Abdominal exam: Present: soft. Absent: tenderness (Dialysis catheter in place) - Extremities Exam Extremities exam: Present: pedal edema (1+) - Psychiatric Psychiatric exam: Absent: agitated, anxious (Per family report) - Skin Skin exam: Present: dry, warm Palliative Quality Palliative Quality: Screen for Code Status: Yes, Screen for Goals of Care: Yes, Screen for Pain: Yes, If Pain Regimen Started, Initiate Bowel Regimen: NA, Screen for Nausea/Vomitting: Yes - Labs CBC & Chem 7: 02/11/18 04:59 02/11/18 04:59 Labs: Laboratory Results - last 24 hr 02/10/18 02/10/18 02/11/18 20:33 22:45 04:59 WBC 2.3 L RBC 2.33 L Hgb 7.6 L Hct 23.4 L MCV 100.4 H MCH 32.6 MCHC 32.5 RDW 14.9 H Plt Count 26 L* MPV 10.6 Immature Gran % 0.9 Seg Neutrophils % 64.8 Lymphocytes % 13.9 Monocytes % 14.3 Eosinophils % 5.2 Basophils % 0.9 Neutrophils # 1.5 L Lymphocytes # 0.3 L Monocytes # 0.3 Eosinophils # 0.1 Basophils # 0.0 Platelet Estimate Marked Decrease L Immature Plt Fraction 3.3 Sodium Potassium Chloride Carbon Dioxide BUN Creatinine Est GFR ( Amer) Est GFR (Non-Af Amer) BUN/Creatinine Ratio Glucose Calculated Osmolality Calcium Magnesium Total Bilirubin AST ALT Alkaline Phosphatase Ammonia Serum Total Protein Albumin Globulin Albumin/Globulin Ratio Fluid Source TNP Fluid Volume TNP Fluid Appearance TNP Fluid RBC TNP Fld Tot Nucleated Cell TNP Fluid Seg Neutrophil % TNP Fld Band Neutrophil % TNP Fluid Lymphocytes % TNP Fluid Monocytes % TNP Fluid Eosinophils % TNP Fluid Basophils % TNP Fluid Other Cells % TNP Peritoneal Appearance CLEAR Peritoneal Volume 40.0 Peritoneal RBC < 0 Periton Tot Nuc Cells 107 Periton Neutrophils 33.0 Periton Lymphocytes % 11 Periton Monocytes % 34 Periton Other Cells % 22 02/11/18 02/11/18 04:59 04:59 WBC RBC Hgb Hct MCV MCH MCHC RDW Plt Count MPV Immature Gran % Seg Neutrophils % Lymphocytes % Monocytes % Eosinophils % Basophils % Neutrophils # Lymphocytes # Monocytes # Eosinophils # Basophils # Platelet Estimate Immature Plt Fraction Sodium 128 L Potassium 5.0 Chloride 92 L Carbon Dioxide 26 BUN 70 H Creatinine 10.10 H Est GFR ( Amer) 6 L Est GFR (Non-Af Amer) 5 L BUN/Creatinine Ratio 7 Glucose 164 H Calculated Osmolality 290 Calcium 7.5 L Magnesium 2.9 H Total Bilirubin 0.9 AST 36 ALT 17 Alkaline Phosphatase 178 H Ammonia 55 H Serum Total Protein 5.1 L Albumin 2.4 L Globulin 2.7 Albumin/Globulin Ratio 0.9 L Fluid Source Fluid Volume Fluid Appearance Fluid RBC Fld Tot Nucleated Cell Fluid Seg Neutrophil % Fld Band Neutrophil % Fluid Lymphocytes % Fluid Monocytes % Fluid Eosinophils % Fluid Basophils % Fluid Other Cells % Peritoneal Appearance Peritoneal Volume Peritoneal RBC Periton Tot Nuc Cells Periton Neutrophils Periton Lymphocytes % Periton Monocytes % Periton Other Cells % - ABG Interpretation ABG results: PT/INR, D-dimer PT 13.6 Seconds (9.4-12.1) H 02/10/18 00:25 Consult Discharge Plan - Plan Referrals: Oseas Graham MD [Primary Care Provider] -
[2018-02-11] MEDS: Renal Vitamin 1 MG CAPSULE PO SCH (08:08)
[2018-02-11] MEDS: Cholecalciferol (D-3) 1,000 UNIT TABLET PO SCH (08:08)
[2018-02-11] MEDS: Gabapentin 300 MG CAPSULE PO SCH (08:08)
[2018-02-11] MEDS: Calcium Acetate 667 MG CAPSULE PO SCH ×3 (08:08→16:34)
--- NOTE | 2018-02-11 11:21 | Nephrology Progress Note ---
Date of Encounter: 02/11/18 Time of Encounter: 09:25 - Assessment and Plan (1) ESRD (end stage renal disease) Status: Chronic I am concerned that PD has not been as effective for clearance and he has ongoing myoclonic twitching suggestive of uremic encephalopathy. His many electrolyte abnormalities including hyponatremia (which is likely multifactorial from renal failure, liver disease and hypervolemia), plus hypocalcemia and hyperkalemia, would be better managed by intermittent HD. After a long and thorough discussion of the Pros/Cons and indications of HD vs PD, he and his POA/Daughter agreed to switch to HD. He already has a RUE AVF, which may or may not work today since there was a narrowed/accentuated bruit. So he may need a fistulagram on it during this admission. I've ordered a gentle HD with lower flows and just 2.5 hrs given his high level of BUN and SCr, so as to minimize the risks for dialysis disequilibrium. He will be on the last HD inpatient shift today (Tuesday), it appears, so I've continued manual PD exchanges in the meantime. His PD Culture had no bacteria and so I do not suspect peritonitis. (2) Anemia in CKD (chronic kidney disease) Status: Chronic Qualifiers: Chronic kidney disease stage: on chronic dialysis Qualified Code(s): N18.6 - End stage renal disease; D63.1 - Anemia in chronic kidney disease; Z99.2 - Dependence on renal dialysis (3) Generalized weakness Status: Acute (4) Hypocalcemia Status: Acute (5) Hyponatremia Status: Acute (6) Liver cirrhosis Status: Acute Qualifiers: Hepatic cirrhosis type: unspecified hepatic cirrhosis Ascites presence: without ascites Qualified Code(s): K74.60 - Unspecified cirrhosis of liver (7) Peritoneal dialysis catheter in situ Status: Chronic (8) Hyperkalemia Status: Resolved Subjective Principal diagnosis: ESRD on PD. Confusion. Interval history: Pt was s/e. He was minimally wake. His daughter (the POA) was at bedside. He had no reported issues with PD, she affirmed. She voiced that she would be willing to switch him back to HD. Objective - Vital Signs Vital signs: Vital Signs Temp Pulse Resp BP Pulse Ox 02/11/18 10:36 98.4 F 90 17 89/48 98 02/11/18 07:53 98.2 F 88 17 109/50 92 02/11/18 03:36 98.6 F 78 18 89/44 97 02/11/18 00:19 97.6 F 89 18 80/39 92 02/10/18 15:46 97.4 F L 108 16 112/69 97 Intake and Output 02/10/18 02/11/18 02/11/18 23:59 07:59 15:59 Intake Total 100 / 100 100 / 100 0 / 0 Output Total 0 / 0 0 / 0 Balance 100 / 100 100 / 100 0 / 0 Intake: Oral 100 / 100 100 / 100 0 / 0 Output: Urine 0 / 0 0 / 0 Other: Total Peritoneal Dialysis -300 330 -380 Output Weight 89.1 kg 90.3 kg Patient Weight 02/11/18 23:59 Weight 90.3 kg - General Appearance General appearance: Present: appears started age, obese, chronically ill, fatigue, frail EENT: Present: ATNC, PERRL, mucous membranes moist Neck: Present: supple Respiratory: Present: clear Cardiology: Present: edema (trace to 1+ pedal edema bilaterally), regular rate, normal S1, normal S2 Dialysis Vascular Access: Arteriovenous Fistula (RUE AVF) thrill: Yes bruit: Yes Additional Comments: PD catheter site was none tender to palpation with clear exit site. Gastrointestinal: Present: normoactive bowel sounds, no tenderness, no guarding , obese Integumentary: Present: warm and dry Neurologic: Present: no focal deficit, no asterixis Musculoskeletal: Present: no cyanosis, no clubbing Psychiatric: Present: cooperative - Lab 02/13/18 05:32 02/13/18 05:32 Most recent lab results Calcium 7.5 mg/dL (8.6-10.3) L 02/11/18 04:59 Phosphorus 5.1 mg/dL (2.7-4.5) H 02/10/18 00:25 Magnesium 2.9 mg/dL (1.6-2.6) H 02/11/18 04:59 Consult Discharge Plan - Plan Instructions: Acute Respiratory Distress Syndrome (DC) Referrals: Tiff Villa MD [Partnered Physician] - (Follow up on your normal HD days) Oseas Graham MD [Primary Care Provider] - 02/21/18 10:15 am Prescriptions: Lactulose 10 gm PO BID PRN #1000 ml PRN Reason: coonstipation Midodrine HCl 2.5 mg PO QMWF #15 tablet
[2018-02-11] MEDS ORDERED: Lidocaine 4% CREAM (LMX) 5 GM TP ONE (12:05)
[2018-02-11 12:40] LABS: Hepatitis B Surface Antigen Nonreactive (Nonreactive)
[2018-02-11] MEDS ORDERED: 0.9 % Sodium Chloride 1,000 ML ONE (12:46)
--- NOTE | 2018-02-11 15:42 | Internal Med Progress Note ---
Date of Encounter: 02/11/18 Time of Encounter: 15:37 - Assessment and plan (1) Generalized weakness Current Visit: Yes Status: Acute Assessment and plan: Reviewed peritoneal fluid analysis does not look infected .. ruled out SBP Pt remained afebrile, no abd pain so no need to initiate systemic abx (2) ESRD (end stage renal disease) on dialysis Current Visit: No Status: Chronic Assessment and plan: Not a best candidate for PD talked to Nephro about this Dr. Winn started him on HD today (3) Hepatic encephalopathy Current Visit: Yes Status: Acute Assessment and plan: Cont Lactulose ammonia level started trending down (4) Hyponatremia Current Visit: No Status: Acute Assessment and plan: replacing during HD (5) Hyperkalemia Current Visit: No Status: Resolved Assessment and plan: improved (6) Liver cancer Current Visit: No Status: Chronic Assessment and plan: Seems to have had a recurrence of the cancer with plans for more chemo Talked to heme onc.. Recommend to f/u with [facility] as an out pt for further chemo Qualifiers: Liver malignancy type: hepatocellular carcinoma Qualified Code(s): C22.0 - Liver cell carcinoma (7) DVT prophylaxis Current Visit: No Status: Acute Assessment and plan: scds (8) Pancytopenia Current Visit: No Status: Chronic Assessment and plan: Seems to be around baseline. Will monitor - Time Spent With Patient Total time spent is greater than 50% in coordination of care (as documented) at patient's floor/unit and/or counseling patient: - Subjective Interval history: Mr. Daly is a 77 year old male with history of hepatocellular carcinoma since 2015 s/p TACE and ablation follows with both [facility] and Dr. Barillas who recently had a recurrence of disease with plans for beads therapy, history of ESRD on PD but also has a fistula if needed, pancytopenia, liver cirrhosis, diastolic HF who presents with lethargy, confusion, generalized deconditioning. Patient has not been eating much. He said he did not want to be in the hospital but family wanted to bring him in. He was agreeable to basic labs in the ED and a CT head since family thought he was confused. CT head was with nothing acute. The patient has been considerably lethargic sleeping up to 15 hours a day. He has some body twitching that he gets with low calcium according to him. Calcium was 7.5 in ED with albumin of 2.6. Rest of labs showed pancytopenia as before. BUN is 65 and creatinine 10.19. Those are about identical to labs from [facility] about a month ago but above baseline compared to our labs. K 5.6, Na 129. No reported fever, headache, blurry vision. abdominal pain , chest pain, shortness of breath, abdominal pain, urinary symptoms. Pt is seen and examined at dialysis center.Now pt is alert, awake and O x 3. Denied any CP / SOB. Denied any abdominal pain. Getting HD today. - Constitutional Vitals: Temp Pulse Resp BP Pulse Ox 97.9 F 90 18 109/42 98 02/11/18 13:20 02/11/18 10:36 02/11/18 13:20 02/11/18 15:20 02/11/18 10:36 General appearance: Present: A&O X 3, no acute distress, answers questions appropriately - Head Head exam: Present: atraumatic, normal inspection - Neck Neck exam general surgery: Present: supple - Respiratory Respiratory exam: Present: decreased breath sounds. Absent: rales, respiratory distress, rhonchi, wheezes - Cardiovascular Cardiovascular exam: Present: RRR, +S1, +S2. Absent: tachycardia - GI/Abdominal GI/Abdominal exam: Present: normal bowel sounds, soft. Absent: distended, rebound, rigid, tenderness - Extremities Exam Extremities exam: Absent: calf tenderness, pedal edema, tenderness - Back Exam Back exam: Absent: CVA tenderness (L), CVA tenderness (R) - Psychiatric Psychiatric exam: Present: normal affect, normal mood Internal Medicine: Result - Labs CBC & Chem 7: 02/11/18 04:59 02/11/18 04:59 Labs: Short CBC 02/11/18 Range/Units 04:59 WBC 2.3 L (4.3-11.1) K/mcL Hgb 7.6 L (12.9-16.9) g/dL Hct 23.4 L (37.5-50.1) % Plt Count 26 L* (140-400) K/mcL Neutrophils # 1.5 L (1.6-8.9) K/mcL BMP 02/11/18 04:59 Sodium 128 L Potassium 5.0 Chloride 92 L Carbon Dioxide 26 BUN 70 H Creatinine 10.10 H Glucose 164 H Calcium 7.5 L Liver Function 02/11/18 Range/Units 04:59 Total Bilirubin 0.9 (0.3-1.0) mg/dL AST 36 (13-39) Units/L ALT 17 (7-52) Units/L Alkaline Phosphatase 178 H (34-104) Units/L Albumin 2.4 L (3.5-5.7) g/dL - ABG Interpretation ABG results: PT/INR, D-dimer PT 13.6 Seconds (9.4-12.1) H 02/10/18 00:25 Consult Discharge Plan - Plan Referrals: Oseas Graham MD [Primary Care Provider] -
[2018-02-11] MEDS: 0.9 % Sodium Chloride 250 ML IVC PRN ×2 (18:43→23:33)
[2018-02-12] MEDS: *HR* OxyCODONE Immed Rel 5 MG TABLET PO SCH ×5 (01:00→23:32)
[2018-02-12 04:45] LABS: Basophils % 0.4 %; Immature Granulocytes % 0.4 % (0-4); Mean Corpuscular Volume 100.4 fL (83.0-100.0)
[2018-02-12 04:47] LABS: Eosinophils # 0.1 K/mcL (0.0-0.6); Eosinophils % 2.2 %; Hematocrit 23.7 % (37.5-50.1); Hemoglobin 7.5 g/dL (12.9-16.9); Immature Platelets 4.4 % (1.1-6.1); Lymphocytes # 0.3 K/mcL (0.6-4.6); Lymphocytes % 13.4 %; Mean Corpuscular HGB Conc 31.6 g/dL (31.6-35.5); Mean Corpuscular Hemoglobin 31.8 pg (28.0-33.3); Mean Platelet Volume 10.1 fL (9.4-12.4); Monocytes # 0.4 K/mcL (0.0-1.3); Monocytes % 17.7 %; Neutrophils # 1.5 K/mcL (1.6-8.9); Red Blood Count 2.36 M/mcL (4.19-5.50); Red Cell Distribution Width 14.8 % (11.5-14.5); Segmented Neutrophils % 65.9 %
[2018-02-12 04:56] LABS: Platelet Count 23 K/mcL (140-400)
[2018-02-12 05:04] LABS: Calcium 7.8 mg/dL (8.6-10.3); Magnesium 2.4 mg/dL (1.6-2.6); Potassium 4.8 mEq/L (3.5-5.1)
[2018-02-12] MEDS: Gabapentin 300 MG CAPSULE PO SCH (07:51)
[2018-02-12] MEDS: Renal Vitamin 1 MG CAPSULE PO SCH (07:51)
[2018-02-12] MEDS: Calcium Acetate 667 MG CAPSULE PO SCH ×3 (07:51→17:02)
[2018-02-12] MEDS: Cholecalciferol (D-3) 1,000 UNIT TABLET PO SCH (07:52)
--- NOTE | 2018-02-12 09:30 | Nephrology Progress Note ---
Date of Encounter: 02/12/18 Time of Encounter: 08:30 - Assessment and Plan (1) ESRD (end stage renal disease) Status: Chronic Na, K+ and Ca trending better with switch to HD yesterday (Tuesday). Now having even less myoclonic twitching as his uremia is starting to improve. Will hold off on urgent HD today (Tuesday), and plan to keep him on M/W/F iHD. He will need a SW consult to help arrange an HD chair for him; he is a patient of Dr. Huntley's. Next HD tomorrow (Tuesday). His RUE AVF worked well without any infiltration, so no need for a fistulagram. His PD Culture had no bacteria and so I do not suspect peritonitis. (2) Anemia in CKD (chronic kidney disease) Status: Chronic Qualifiers: Chronic kidney disease stage: on chronic dialysis Qualified Code(s): N18.6 - End stage renal disease; D63.1 - Anemia in chronic kidney disease; Z99.2 - Dependence on renal dialysis (3) Generalized weakness Status: Acute (4) Hypocalcemia Status: Acute (5) Hyponatremia Status: Acute (6) Liver cirrhosis Status: Acute Qualifiers: Hepatic cirrhosis type: unspecified hepatic cirrhosis Ascites presence: without ascites Qualified Code(s): K74.60 - Unspecified cirrhosis of liver (7) Peritoneal dialysis catheter in situ Status: Chronic (8) Hyperkalemia Status: Resolved Subjective Principal diagnosis: AMS Interval history: Pt was s/e and did not affirm N/V/D but did affirm poor appetite. His POA was at bedside. He tolerated HD well without cramping though his BPs were borderline low afterwards. Objective - Vital Signs Vital signs: Vital Signs Temp Pulse Resp BP Pulse Ox 02/12/18 07:41 95 02/12/18 06:54 98.1 F 115 16 145/67 98 02/12/18 03:59 98.6 F 94 16 103/58 96 02/12/18 01:08 81/41 02/11/18 23:28 98.6 F 96 15 87/45 96 02/11/18 19:08 98.1 F 87 16 94/55 96 02/11/18 18:27 104/64 02/11/18 18:09 91 88/47 05/05/18 17:58 87/45 02/11/18 17:45 99/53 02/11/18 17:30 95/56 02/11/18 16:35 18 84/50 02/11/18 16:20 97.2 F L 18 121/42 02/11/18 15:50 100/34 02/11/18 15:35 121/43 02/11/18 15:20 109/42 02/11/18 15:05 108/38 02/11/18 14:50 104/41 02/11/18 14:35 106/44 02/11/18 14:20 99/41 02/11/18 14:05 93/44 02/11/18 13:50 92/42 02/11/18 13:35 94/43 02/11/18 13:20 97.9 F 18 103/45 02/11/18 11:57 88/38 02/11/18 10:36 98.4 F 90 17 89/48 98 Intake and Output 02/11/18 02/12/18 02/12/18 23:59 07:59 15:59 Intake Total 375 / 375 350 / 350 Output Total 2600 / 2600 0 / 0 Balance -2225 / -2225 350 / 350 Intake: IV Fluids 250 / 250 250 / 250 0.9 % Sodium Chloride 250 ML @ 250 / 250 250 / 250 937.5 mls/hr IVC .Q16M PRN Rx#: [id number] Oral 125 / 125 100 / 100 Output: Urine 0 / 0 0 / 0 Total Dialysis (HD) Output 2600 / 2600 Other: Meal APPLE JUICE Weight 85.8 kg Hemodialysis Net Fluid Removed 2000 (mL) Patient Weight 02/12/18 23:59 Weight 85.8 kg - General Appearance Exam: General appearance: Present: appears started age, obese, chronically ill, fatigue, frail EENT: Present: ATNC, PERRL, mucous membranes moist Neck: Present: supple Respiratory: Present: clear Cardiology: Present: edema (trace to 1+ pedal edema bilaterally), regular rate, normal S1, normal S2 Dialysis Vascular Access: Arteriovenous Fistula (RUE AVF) thrill: Yes bruit: Yes Additional Comments: PD catheter site was none tender to palpation with clear exit site. Gastrointestinal: Present: normoactive bowel sounds, no tenderness, no guarding , obese Integumentary: Present: warm and dry Neurologic: Present: no focal deficit, no asterixis Musculoskeletal: Present: no cyanosis, no clubbing Psychiatric: Present: cooperative - Lab 02/13/18 05:32 02/13/18 05:32 Most recent lab results Calcium 7.8 mg/dL (8.6-10.3) L 02/12/18 04:35 Phosphorus 5.1 mg/dL (2.7-4.5) H 02/10/18 00:25 Magnesium 2.4 mg/dL (1.6-2.6) 02/12/18 04:35 Consult Discharge Plan - Plan Instructions: Acute Respiratory Distress Syndrome (DC) Referrals: Tiff Villa MD [Partnered Physician] - (Follow up on your normal HD days) Oseas Graham MD [Primary Care Provider] - 02/21/18 10:15 am Prescriptions: Lactulose 10 gm PO BID PRN #1000 ml PRN Reason: coonstipation Midodrine HCl 2.5 mg PO QMWF #15 tablet
[2018-02-12] MEDS ORDERED: Lactulose Oral Soln 20 GM/30 ML UDC PO PRN (15:01)
--- NOTE | 2018-02-12 15:01 | Internal Med Progress Note ---
Date of Encounter: 02/12/18 Time of Encounter: 14:30 - Assessment and plan (1) Generalized weakness Current Visit: Yes Status: Acute Assessment and plan: Reviewed peritoneal fluid analysis does not look infected .. ruled out SBP Pt remained afebrile, no abd pain so no need to initiate systemic abx (2) ESRD (end stage renal disease) on dialysis Current Visit: No Status: Chronic Assessment and plan: Not a best candidate for PD talked to Nephro about this Dr. Winn started him on HD y/d tolerated well Cont HD as per Nephro recommendation (3) Hepatic encephalopathy Current Visit: Yes Status: Acute Assessment and plan: Cont Lactulose ammonia level started trending down (4) Hyponatremia Current Visit: No Status: Acute Assessment and plan: replacing during HD (5) Liver cancer Current Visit: No Status: Chronic Assessment and plan: Seems to have had a recurrence of the cancer with plans for more chemo Talked to heme onc.. Recommend to f/u with [facility] as an out pt for further chemo Qualifiers: Liver malignancy type: hepatocellular carcinoma Qualified Code(s): C22.0 - Liver cell carcinoma (6) DVT prophylaxis Current Visit: No Status: Acute Assessment and plan: scds (7) Pancytopenia Current Visit: No Status: Chronic Assessment and plan: Seems to be around baseline. Will monitor - Time Spent With Patient Total time spent is greater than 50% in coordination of care (as documented) at patient's floor/unit and/or counseling patient: - Subjective Interval history: Mr. Daly is a 77 year old male with history of hepatocellular carcinoma since 2015 s/p TACE and ablation follows with both [facility] and Dr. Barillas who recently had a recurrence of disease with plans for beads therapy, history of ESRD on PD but also has a fistula if needed, pancytopenia, liver cirrhosis, diastolic HF who presents with lethargy, confusion, generalized deconditioning. Patient has not been eating much. He said he did not want to be in the hospital but family wanted to bring him in. He was agreeable to basic labs in the ED and a CT head since family thought he was confused. CT head was with nothing acute. The patient has been considerably lethargic sleeping up to 15 hours a day. He has some body twitching that he gets with low calcium according to him. Calcium was 7.5 in ED with albumin of 2.6. Rest of labs showed pancytopenia as before. BUN is 65 and creatinine 10.19. Those are about identical to labs from [facility] about a month ago but above baseline compared to our labs. K 5.6, Na 129. No reported fever, headache, blurry vision. abdominal pain , chest pain, shortness of breath, abdominal pain, urinary symptoms. Pt is seen and examined at bed side. Now pt is alert, awake and O x 3. Denied any CP / SOB. Denied any abdominal pain. - Constitutional Vitals: Temp Pulse Resp BP Pulse Ox 98.1 F 106 16 91/50 97 02/12/18 12:05 02/12/18 12:05 02/12/18 12:05 02/12/18 12:05 02/12/18 12:05 General appearance: Present: A&O X 3, no acute distress, answers questions appropriately - Head Head exam: Present: atraumatic, normal inspection - Neck Neck exam general surgery: Present: supple - Respiratory Respiratory exam: Present: decreased breath sounds. Absent: rales, respiratory distress, rhonchi, wheezes - Cardiovascular Cardiovascular exam: Present: RRR, +S1, +S2. Absent: tachycardia - GI/Abdominal GI/Abdominal exam: Present: distended, normal bowel sounds, soft. Absent: rebound, rigid, tenderness Additional comments: PD cath + - Extremities Exam Extremities exam: Present: pedal edema. Absent: calf tenderness, tenderness - Back Exam Back exam: Absent: CVA tenderness (L), CVA tenderness (R) - Neurological Exam Neurological exam: Present: alert, oriented X3 - Psychiatric Psychiatric exam: Present: normal affect, normal mood - Skin Skin exam: Absent: rash Internal Medicine: Result - Labs CBC & Chem 7: 02/12/18 04:35 02/12/18 04:35 Labs: Short CBC 02/12/18 Range/Units 04:35 WBC 2.3 L (4.3-11.1) K/mcL Hgb 7.5 L (12.9-16.9) g/dL Hct 23.7 L (37.5-50.1) % Plt Count 23 L* (140-400) K/mcL Neutrophils # 1.5 L (1.6-8.9) K/mcL BMP 02/12/18 04:35 Sodium 135 L Potassium 4.8 Chloride 99 Carbon Dioxide 27 BUN 48 H Creatinine 7.67 H Glucose 138 H Calcium 7.8 L - ABG Interpretation ABG results: PT/INR, D-dimer PT 13.6 Seconds (9.4-12.1) H 02/10/18 00:25 Consult Discharge Plan - Plan Referrals: Oseas Graham MD [Primary Care Provider] -
[2018-02-13 02:44] LABS: Hepatitis B Surface Antibody 1.56 mIU/mL
[2018-02-13] MEDS: *HR* OxyCODONE Immed Rel 5 MG TABLET PO SCH ×3 (05:52→17:37)
[2018-02-13 05:56] LABS: Hemoglobin 7.7 g/dL (12.9-16.9); Mean Corpuscular Volume 99.6 fL (83.0-100.0); Red Cell Distribution Width 14.6 % (11.5-14.5)
[2018-02-13 05:58] LABS: Basophils % 1.2 %; Eosinophils # 0.2 K/mcL (0.0-0.6); Eosinophils % 6.2 %; Hematocrit 23.5 % (37.5-50.1); Immature Granulocytes % 0.4 % (0-4); Immature Platelets 4.4 % (1.1-6.1); Lymphocytes # 0.4 K/mcL (0.6-4.6); Mean Corpuscular HGB Conc 32.8 g/dL (31.6-35.5); Mean Corpuscular Hemoglobin 32.6 pg (28.0-33.3); Mean Platelet Volume 10.7 fL (9.4-12.4); Monocytes # 0.4 K/mcL (0.0-1.3); Monocytes % 17.1 %; Neutrophils # 1.6 K/mcL (1.6-8.9); Red Blood Count 2.36 M/mcL (4.19-5.50); Segmented Neutrophils % 61.1 %
[2018-02-13 06:05] LABS: Platelet Count 25 K/mcL (140-400)
[2018-02-13 06:06] LABS: Calcium 7.6 mg/dL (8.6-10.3)
[2018-02-13 06:07] LABS: Albumin 2.2 g/dL (3.5-5.7); Albumin/Globulin Ratio 0.8 (1.1-2.2); Calcium 7.6 mg/dL (8.6-10.3); Globulin 2.9 g/dL (2.4-3.5); Magnesium 2.4 mg/dL (1.6-2.6); Total Protein 5.1 g/dL (6.4-8.9)
[2018-02-13] MEDS ORDERED: 0.9 % Sodium Chloride 250 ML IVC PRN (07:00)
[2018-02-13] MEDS ORDERED: 0.9 % Sodium Chloride 1,000 ML ONE (07:43)
[2018-02-13] MEDS: Gabapentin 300 MG CAPSULE PO SCH (08:20)
[2018-02-13] MEDS: Renal Vitamin 1 MG CAPSULE PO SCH (08:20)
[2018-02-13] MEDS: Calcium Acetate 667 MG CAPSULE PO SCH ×3 (08:20→17:29)
[2018-02-13] MEDS: Cholecalciferol (D-3) 1,000 UNIT TABLET PO SCH (08:20)
[2018-02-13] MEDS ORDERED: Albumin 25% 12.5gm/50mL 25.0 GM/100 ML IV.SOLN ONE (11:03)
--- NOTE | 2018-02-13 11:37 | Palliative Progress Note ---
Date of Encounter: 02/13/18 Time of Encounter: 09:30 - Assessment and plan (1) Cancer associated pain Current Visit: Yes Status: Acute Assessment and plan: Continues with scheduled Oxycodone as he takes at home. Has tolerated well. (2) Counseling regarding advanced care planning and goals of care Current Visit: Yes Status: Acute Assessment and plan: Family agreeable to transition of hemodialysis. They would like referral for homecare for home pt upon discharge and plan on follow up at [facility] for his liver cancer. S/W notified. Had lengthy discussion with daughter at bedside regarding code status. Offered to complete state form if they desire DNR to continue after discharge. Daughter with many questions and desires to discuss with her siblings. Provided education and sample of DNR state form. (3) Fever of unknown origin Current Visit: No Status: Resolved (4) Renal failure, chronic Current Visit: No Status: Acute Qualifiers: Chronic kidney disease stage: stage 4 (severe) Qualified Code(s): N18.4 - Chronic kidney disease, stage 4 (severe) (5) Liver cirrhosis Current Visit: No Status: Acute (6) Hepatocellular carcinoma Current Visit: No Status: Chronic - Time Spent With Patient Total time spent is greater than 50% in coordination of care (as documented) at patient's floor/unit and/or counseling patient: - Subjective Interval history: Patient up in chair. Daughter at bedside. Remains confused at times but overall mental status has improved since admission. Weekend events reviewed, pt has required transition to hemodialysis. Ammonia level back down to high normal after Lactulose. - Constitutional Vitals: Abnormal lab results WBC 2.6 K/mcL (4.3-11.1) L 02/13/18 05:32 RBC 2.36 M/mcL (4.19-5.50) L 02/13/18 05:32 Hgb 7.7 g/dL (12.9-16.9) L 02/13/18 05:32 Hct 23.5 % (37.5-50.1) L 02/13/18 05:32 RDW 14.6 % (11.5-14.5) H 02/13/18 05:32 Plt Count 25 K/mcL (140-400) L* 02/13/18 05:32 Lymphocytes # 0.4 K/mcL (0.6-4.6) L 02/13/18 05:32 Platelet Estimate Marked Decrease (Normal) L 02/11/18 04:59 PT 13.6 Seconds (9.4-12.1) H 02/10/18 00:25 Sodium 133 mEq/L (136-145) L 02/13/18 05:32 Chloride 97 mEq/L (98-107) L 02/13/18 05:32 BUN 65 mg/dL (8-23) H 02/13/18 05:32 Creatinine 9.44 mg/dL (0.70-1.30) H 02/13/18 05:32 Est GFR ( Amer) 7 (> 60) L 02/13/18 05:32 Est GFR (Non-Af Amer) 5 (> 60) L 02/13/18 05:32 Glucose 136 mg/dL (70-105) H 02/13/18 05:32 Calcium 7.6 mg/dL (8.6-10.3) L 02/13/18 05:32 Phosphorus 5.1 mg/dL (2.7-4.5) H 02/10/18 00:25 Direct Bilirubin 0.6 mg/dL (0.0-0.2) H 02/10/18 00:25 Alkaline Phosphatase 182 Units/L (34-104) H 02/13/18 05:32 Serum Total Protein 5.1 g/dL (6.4-8.9) L 02/13/18 05:32 Albumin 2.2 g/dL (3.5-5.7) L 02/13/18 05:32 Albumin/Globulin Ratio 0.8 (1.1-2.2) L 02/13/18 05:32 Urine Clarity Cloudy (Clear) A 02/10/18 00:36 Urine Ketones Trace mg/dL (Negative) H 02/10/18 00:36 Urine Blood Moderate (Negative) H 02/10/18 00:36 Urine Bilirubin Moderate (Negative) H 02/10/18 00:36 Ur Leukocyte Esterase Small (Negative) H 02/10/18 00:36 Urine Microscopic RBC 15-30 per hpf (0-3) H 02/10/18 00:36 Urine Microscopic WBC 5-15 per hpf (0-3) H 02/10/18 00:36 Ur Squamous Epith Cells Many per lpf (None-Few) H 02/10/18 00:36 Ur Culture Indicated? NO. (NO) A 02/10/18 00:36 General appearance: Present: no acute distress - Respiratory Respiratory exam: Present: CTAB - Cardiovascular Cardiovascular exam: Present: +S1, +S2 - GI/Abdominal GI/Abdominal exam: Present: distended, normal bowel sounds (Peritonial dialysis cath in place.) - Extremities Exam Extremities exam: Present: normal capillary refill, normal inspection - Neurological Exam Neurological exam: Present: alert (Oriented to name and place. Follows simple commands. LERNER), strengths equal and symetr throughout - Skin Skin exam: Present: dry, pallor, warm Palliative Quality Palliative Quality: Screen for Code Status: Yes, Screen for Goals of Care: Yes, Screen for Pain: Yes, If Pain Regimen Started, Initiate Bowel Regimen: NA, Screen for Nausea/Vomitting: Yes - Labs CBC & Chem 7: 02/13/18 05:32 02/13/18 05:32 Labs: Laboratory Results - last 24 hr 02/11/18 02/13/18 02/13/18 11:32 05:32 05:32 WBC 2.6 L RBC 2.36 L Hgb 7.7 L Hct 23.5 L MCV 99.6 MCH 32.6 MCHC 32.8 RDW 14.6 H Plt Count 25 L* MPV 10.7 Immature Gran % 0.4 Seg Neutrophils % 61.1 Lymphocytes % 14.0 Monocytes % 17.1 Eosinophils % 6.2 Basophils % 1.2 Neutrophils # 1.6 Lymphocytes # 0.4 L Monocytes # 0.4 Eosinophils # 0.2 Basophils # 0.0 Immature Plt Fraction 4.4 Sodium 131 L Potassium 5.0 Chloride 97 L Carbon Dioxide 26 BUN 65 H Creatinine 8.72 H Est GFR ( Amer) 7 L Est GFR (Non-Af Amer) 6 L BUN/Creatinine Ratio 7 Glucose 143 H Calculated Osmolality 293 Calcium 7.6 L Magnesium Total Bilirubin AST ALT Alkaline Phosphatase Ammonia Serum Total Protein Albumin Globulin Albumin/Globulin Ratio Hep Bs Antibody 1.56 02/13/18 02/13/18 05:32 05:32 WBC RBC Hgb Hct MCV MCH MCHC RDW Plt Count MPV Immature Gran % Seg Neutrophils % Lymphocytes % Monocytes % Eosinophils % Basophils % Neutrophils # Lymphocytes # Monocytes # Eosinophils # Basophils # Immature Plt Fraction Sodium 133 L Potassium 5.0 Chloride 97 L Carbon Dioxide 25 BUN 65 H Creatinine 9.44 H Est GFR ( Amer) 7 L Est GFR (Non-Af Amer) 5 L BUN/Creatinine Ratio 7 Glucose 136 H Calculated Osmolality 297 Calcium 7.6 L Magnesium 2.4 Total Bilirubin 1.0 AST 35 ALT 18 Alkaline Phosphatase 182 H Ammonia 52 Serum Total Protein 5.1 L Albumin 2.2 L Globulin 2.9 Albumin/Globulin Ratio 0.8 L Hep Bs Antibody - ABG Interpretation ABG results: PT/INR, D-dimer PT 13.6 Seconds (9.4-12.1) H 02/10/18 00:25 Consult Discharge Plan - Plan Referrals: Oseas Graham MD [Primary Care Provider] -
[2018-02-13] MEDS ORDERED: Albumin 25% 25gram/100mL 25 GM/100 ML IV.SOLN IVPB ONE (11:38)
--- NOTE | 2018-02-13 12:41 | Nephrology Progress Note ---
Date of Encounter: 02/13/18 Time of Encounter: 11:30 - Assessment and Plan (1) ESRD (end stage renal disease) Status: Chronic HD today for clearance and fluid removal. With his cirrhosis of the liver, he will be more prone for intradialytic hypotension, so I recommend Midodrine 2.5mg po one tablet before HD on //. I've called the [facility] dialysis unit and placed a SW consult to arrange switching this pt to iHD from PD to help arrange an HD chair. Spoke with the SW today as well. His RUE AVF worked well without any infiltration, so no need for a fistulagram. His PD Culture had no bacteria and so I do not suspect peritonitis. (2) Anemia in CKD (chronic kidney disease) Status: Chronic Qualifiers: Chronic kidney disease stage: on chronic dialysis Qualified Code(s): N18.6 - End stage renal disease; D63.1 - Anemia in chronic kidney disease; Z99.2 - Dependence on renal dialysis (3) Generalized weakness Status: Acute (4) Hypocalcemia Status: Acute (5) Hyponatremia Status: Acute (6) Liver cirrhosis Status: Acute Qualifiers: Hepatic cirrhosis type: unspecified hepatic cirrhosis Ascites presence: without ascites Qualified Code(s): K74.60 - Unspecified cirrhosis of liver (7) Peritoneal dialysis catheter in situ Status: Chronic (8) Hyperkalemia Status: Resolved Subjective Principal diagnosis: AMS Interval history: Pt was s/e. His daughter was present and she did not report new acute events. He voiced being more and more awake and alert, and he denied N/V/D, CP, abd pain or shortness of breath. Fatigue remains he affirmed. Objective - Vital Signs Vital signs: Vital Signs Temp Pulse Resp BP Pulse Ox 02/13/18 08:30 99 02/13/18 07:10 99.3 F 85 16 104/65 99 02/13/18 03:59 98.3 F 92 15 97/50 96 02/12/18 23:46 98.7 F 85 14 91/54 98 02/12/18 19:08 98.2 F 85 15 144/73 99 02/12/18 15:16 98.5 F 81 18 140/64 98 Intake and Output 02/12/18 02/13/18 02/13/18 23:59 07:59 15:59 Intake Total 100 / 100 50 / 50 120 / 120 Output Total 0 / 0 0 / 0 Balance 100 / 100 50 / 50 120 / 120 Intake: Oral 100 / 100 50 / 50 120 / 120 Output: Urine 0 / 0 0 / 0 Other: Meal Breakfast Percent of Meal Consumed 25% Stool Size Large Stool Consistency soft Stool Characteristics Normal for Patient Stool Color Brown # Voids 0 # Bowel Movements 1 Weight 86.2 kg Patient Weight 02/13/18 23:59 Weight 86.2 kg - General Appearance Exam: General appearance: Present: appears started age, obese, chronically ill, fatigue, frail EENT: Present: ATNC, PERRL, mucous membranes moist Neck: Present: supple Respiratory: Present: clear Cardiology: Present: edema (trace to 1+ pedal edema bilaterally), regular rate, normal S1, normal S2 Dialysis Vascular Access: Arteriovenous Fistula (RUE AVF) thrill: Yes bruit: Yes Additional Comments: PD catheter site was none tender to palpation with clear exit site. Gastrointestinal: Present: normoactive bowel sounds, no tenderness, no guarding , obese Integumentary: Present: warm and dry Neurologic: Present: no focal deficit, no asterixis Musculoskeletal: Present: no cyanosis, no clubbing Psychiatric: Present: cooperative - Lab 02/13/18 05:32 02/13/18 05:32 Most recent lab results Calcium 7.6 mg/dL (8.6-10.3) L 02/13/18 05:32 Phosphorus 5.1 mg/dL (2.7-4.5) H 02/10/18 00:25 Magnesium 2.4 mg/dL (1.6-2.6) 02/13/18 05:32 Consult Discharge Plan - Plan Instructions: Acute Respiratory Distress Syndrome (DC) Referrals: Tiff Villa MD [Partnered Physician] - (Follow up on your normal HD days) Oseas Graham MD [Primary Care Provider] - 02/21/18 10:15 am Prescriptions: Lactulose 10 gm PO BID PRN #1000 ml PRN Reason: coonstipation Midodrine HCl 2.5 mg PO QMWF #15 tablet
--- NOTE | 2018-02-13 14:47 | Discharge Summary ---
- NOTES TO OUTPATIENT PROVIDER Notes to Outpatient Provider: f/u with Oncologist from [facility]. f/u with Nephrology Dr. Huntley in 1-2 weeks. Please take Midodrine 2.5mg PO every Mon/Wed /Fri before HD to keep your BP elevated Orders not resulted at time of discharge: Pending orders 02/10/18 20:33 Culture,Body Fluid [RM] Routine Date of Encounter: 02/13/18 Time of Encounter: 14:39 - Discharge Diagnosis (1) Generalized weakness Priority: Primary Status: Acute (2) ESRD (end stage renal disease) on dialysis Priority: Secondary Status: Chronic (3) Hepatic encephalopathy Priority: Primary Status: Acute (4) Hyponatremia Priority: Secondary Status: Acute (5) Liver cancer Priority: Secondary Status: Chronic Qualifiers: Liver malignancy type: hepatocellular carcinoma Qualified Code(s): C22.0 - Liver cell carcinoma (6) DVT prophylaxis Priority: Secondary Status: Acute (7) Pancytopenia Priority: Secondary Status: Chronic Hospital course: Mr. Daly is a 77 year old male with history of hepatocellular carcinoma since 2015 s/p TACE and ablation follows with both [facility] and Dr. Barillas who recently had a recurrence of disease with plans for beads therapy, history of ESRD on PD but also has a fistula if needed, pancytopenia, liver cirrhosis, diastolic HF who presents with lethargy, confusion, generalized deconditioning. Patient has not been eating much. He said he did not want to be in the hospital but family wanted to bring him in. He was agreeable to basic labs in the ED and a CT head since family thought he was confused. CT head was with nothing acute. The patient has been considerably lethargic sleeping up to 15 hours a day. He has some body twitching that he gets with low calcium according to him. Calcium was 7.5 in ED with albumin of 2.6. Rest of labs showed pancytopenia as before. BUN is 65 and creatinine 10.19. Those are about identical to labs from [facility] about a month ago but above baseline compared to our labs. K 5.6, Na 129. No reported fever, headache, blurry vision. abdominal pain , chest pain, shortness of breath, abdominal pain, urinary symptoms. Pt's peritoneal fluid analysis comes back as non infectious so SBP ruled out and pt was never required any systemic abx. His ammonia level slightly elevated with lactulose his Ammonia levels also improved. Pt's generalized weakness and muscle twitching could be due to his PD, so talked to pt and [place] to switch him to HD . Pt's family agreed for HD, so he started getting HD on // and he feels much better now. He does have some fluctuations in his BP, so Dr. Winn recommend to start him on Midodrine 2.5mg PO // before HD. His pancytopenia seems to be due to hepatic cancer. His numbers seems to be at baseline, so recommend to f/u with his onocologist as from [facility] as an out pt as scheduled before since they would like to start him on another round of chemo. Pt just came back from HD, since his BP slightly on lower side family would like to take him home tomorrow morning. I did write a prescription for wheel chair for transportation. - Time Spent with Patient Total time spent providing and/or coordinating discharge services: - Discharge Medications Prescriptions: Lactulose 10 gm PO BID PRN #1000 ml PRN Reason: coonstipation Midodrine HCl 2.5 mg PO QMWF #15 tablet Home Medications: Buspirone HCl [Buspar] 5 mg PO BID 02/10/18 [History] Calcium Acetate [Phos-LO] 667 mg PO 1-3XD 02/10/18 [History] Cholecalciferol (D-3) [Vitamin D] 1,000 unit PO DAILY 02/10/18 [History] Epoetin Kevon [Epogen] 30,000 unit IJ QWEEK 02/10/18 [History] Folic Acid/Vit Bcomp,C [Dialyvite Tablet] 1 each PO DAILY 02/10/18 [History] Furosemide [Lasix] 20 mg PO DAILY 02/10/18 [History] Gabapentin [Neurontin] 300 mg PO DAILY 02/10/18 [History] Omeprazole [PriLOSEC] 40 mg PO DAILY 02/10/18 [History] Oxycodone HCl 5 mg PO Q6HR PRN 02/10/18 [History] Simvastatin [Zocor] 10 mg PO HS 02/10/18 [History] Tamsulosin [Flomax] 0.4 mg PO BID 02/10/18 [History] Magnesium Oxide [Magnesium] 250 mg PO 1-2XD 02/12/18 [History] Carvedilol [Coreg] 3.125 mg PO Q12HR #0 02/13/18 [Rx] Lactulose 10 gm PO BID PRN #1000 ml 02/13/18 [Rx] Midodrine HCl 2.5 mg PO QMWF #15 tablet 02/13/18 [Rx] Allergies/Adverse Reactions: 3 Allergy/AdvReac Type Severity Reaction Status Date / Time linezolid [From Zyvox] Allergy Weakness Verified 12/14/17 11:05 trimethoprim [From Bactrim] Allergy Weakness Verified 12/14/17 11:05 Date of admission: 02/10/18 04:48 Primary care physician: Oseas Graham MD Consults: 02/10/18 04:55 Consult to Palliative Care [CONS] Routine Comment: Consulting Provider: Palliative Care Nehal Reason for Consult: goals of care/??hospice Call Completed: No 02/11/18 11:30 Consult to Dialysis [CONS] ONCE 02/12/18 09:31 Consult to Radio Repairman [CONS] Routine Reason for SW Consult: Please arrange with Sugey medrano dialysis chair time, he is a pt of Dr. Lopez and he is switching from PD to HD. Thank you. 02/13/18 07:00 Consult to Dialysis [CONS] ONCE 02/14/18 07:00 Consult to Dialysis [CONS] ONCE - Constitutional Vitals: Temp Pulse Resp BP Pulse Ox 99.3 F 85 16 104/65 99 02/13/18 07:10 02/13/18 07:10 02/13/18 07:10 02/13/18 07:10 02/13/18 08:30 General appearance: Present: A&O X 3, no acute distress, answers questions appropriately - Head Head exam: Present: atraumatic, normal inspection - Neck Neck exam general surgery: Present: supple - Respiratory Respiratory exam: Present: decreased breath sounds. Absent: rales, respiratory distress, rhonchi, wheezes - Cardiovascular Cardiovascular exam: Present: RRR, +S1, +S2. Absent: tachycardia - GI/Abdominal GI/Abdominal exam: Present: distended, normal bowel sounds, soft. Absent: pulsatile mass, rigid, tenderness - Extremities Exam Extremities exam: Absent: calf tenderness, pedal edema, tenderness - Back Exam Back exam: Absent: CVA tenderness (L), CVA tenderness (R) - Neurological Exam Neurological exam: Present: alert, oriented X3 - Psychiatric Psychiatric exam: Present: normal affect, normal mood - Patient Status Disposition: Home, Self-Care Condition: Good Overall status at discharge: patient is back to baseline - Discharge Instructions Follow Up With: Oseas Graham MD [Primary Care Provider] - Tiff Villa MD [Partnered Physician] - - Diet and Activity Activity: increase activity as tolerated Diet: low salt diet
[2018-02-14] MEDS: *HR* OxyCODONE Immed Rel 5 MG TABLET PO SCH ×2 (01:03→06:18)
[2018-02-14 07:12] VITALS: BP 122/78
--- NOTE | 2018-02-14 08:49 | Nephrology Progress Note ---
Date of Encounter: 02/14/18 Time of Encounter: 08:47 - Assessment and Plan (1) ESRD (end stage renal disease) on dialysis Current Visit: No Status: Chronic Plan for HD tomorrow at [facility], chair time 4pm Continue renal diet Avoid nephrotoxins if possible Will set up outpatient appointment to have PD cath removed (2) Anemia in CKD (chronic kidney disease) Current Visit: No Status: Chronic Hgb 7.7 Will give epo through outpatient HD treatments Will do weekly hgb until at goal hgb of 10-11 Qualifiers: Chronic kidney disease stage: on chronic dialysis Qualified Code(s): N18.6 - End stage renal disease; D63.1 - Anemia in chronic kidney disease; Z99.2 - Dependence on renal dialysis (3) Hypocalcemia Current Visit: No Status: Acute Ca+ 7.6 Will monitor through outpatient HD treatments Subjective Principal diagnosis: ESRD on dialysis, anemia in CKD Interval history: Patient seen and examined. To be discharged today Objective - Vital Signs Vital signs: Vital Signs Temp Pulse Resp BP Pulse Ox 02/14/18 07:10 98.3 F 97 16 122/78 99 02/14/18 03:19 99.1 F 103 15 91/53 96 02/13/18 23:21 99.9 F H 101 16 106/54 95 02/13/18 18:54 99.4 F 97 15 124/68 98 02/13/18 17:39 90/47 02/13/18 15:54 98.2 F 101 20 93/49 97 02/13/18 14:44 98.2 F 106 18 106/44 96 02/13/18 13:45 96.9 F L 17 132/94 02/13/18 13:30 104/57 02/13/18 13:15 105/64 02/13/18 13:00 99/62 02/13/18 12:45 106/62 02/13/18 12:30 95/56 02/13/18 12:15 96/57 02/13/18 12:00 98/56 02/13/18 11:45 96/57 02/13/18 11:30 98/56 02/13/18 11:15 99/60 02/13/18 11:00 100/55 02/13/18 10:45 98/56 02/13/18 10:30 90/54 05/07/18 10:15 90/52 02/13/18 10:00 97.6 F 17 90/47 Intake and Output 02/13/18 02/14/18 02/14/18 23:59 07:59 15:59 Intake Total 100 / 100 150 / 150 Balance 100 / 100 150 / 150 Intake: Oral 100 / 100 150 / 150 Other: Meal Dinner Percent of Meal Consumed 25% Weight 86.1 kg Patient Weight 02/14/18 23:59 Weight 86.1 kg - General Appearance General appearance: Present: well-developed, well-nourished EENT: Present: ATNC, mucous membranes moist, hearing intact, vision intact Neck: Present: supple Respiratory: Present: clear Cardiology: Present: no edema, normal S1, normal S2 Gastrointestinal: Present: no tenderness, no guarding Integumentary: Present: warm and dry Neurologic: Present: alert and oriented x3 Psychiatric: Present: mood/affect appropriate, cooperative - Lab 02/13/18 05:32 02/13/18 05:32 Most recent lab results Calcium 7.6 mg/dL (8.6-10.3) L 02/13/18 05:32 Phosphorus 5.1 mg/dL (2.7-4.5) H 02/10/18 00:25 Magnesium 2.4 mg/dL (1.6-2.6) 02/13/18 05:32 Consult Discharge Plan - Plan Instructions: Acute Respiratory Distress Syndrome (DC) Referrals: Tiff Villa MD [Partnered Physician] - Oseas Graham MD [Primary Care Provider] - Prescriptions: Lactulose 10 gm PO BID PRN #1000 ml PRN Reason: coonstipation Midodrine HCl 2.5 mg PO QMWF #15 tablet
[2018-02-14] MEDS: Gabapentin 300 MG CAPSULE PO SCH (09:00)
[2018-02-14] MEDS: Cholecalciferol (D-3) 1,000 UNIT TABLET PO SCH (09:00)
[2018-02-14] MEDS: Calcium Acetate 667 MG CAPSULE PO SCH (09:00)
[2018-02-14] MEDS: Renal Vitamin 1 MG CAPSULE PO SCH (09:01)
--- NOTE | 2018-02-14 09:55 | Internal Med Progress Note ---
Date of Encounter: 02/14/18 Time of Encounter: 09:52 - Assessment and plan (1) Liver cancer Current Visit: Yes Status: Chronic Assessment and plan: Home/onc consulted; appreciate input. Recommend to f/u with [facility] as an outpatient for further chemo. Qualifiers: Liver malignancy type: hepatocellular carcinoma Qualified Code(s): C22.0 - Liver cell carcinoma (2) ESRD (end stage renal disease) on dialysis Current Visit: Yes Status: Chronic Assessment and plan: Nephrology consulted; appreciate input. Started on hemodialysis. Plan for HD tomorrow at [facility]. Avoid nephrotoxins and follow renal diet. Follow up with nephrology as recommended. (3) Generalized weakness Current Visit: Yes Status: Acute Assessment and plan: Improved. Treat chronic conditions. Home health PT and OT. (4) Hyponatremia Current Visit: No Status: Acute Assessment and plan: Improved and stable. Continue replacing during HD. (5) Pancytopenia Current Visit: No Status: Chronic Assessment and plan: Seems to be around baseline. Continue to follow at HD. (6) Hepatic encephalopathy Current Visit: Yes Status: Acute Assessment and plan: Continue lactulose. (7) DVT prophylaxis Current Visit: No Status: Acute Assessment and plan: Continue SCDs. - Time Spent With Patient Total time spent is greater than 50% in coordination of care (as documented) at patient's floor/unit and/or counseling patient: less than 15 minutes - Subjective Interval history: Patient had no acute events overnight. Ready to be discharged home. Discussed home needs with daughter and aide in room today. Patient has no complaints. - Constitutional Vitals: Temp Pulse Resp BP Pulse Ox 98.3 F 97 16 122/78 99 02/14/18 07:10 02/14/18 07:10 02/14/18 07:10 02/14/18 07:10 02/14/18 09:03 General appearance: Present: cooperative, A&O X 3, pleasant, no acute distress, answers questions appropriately - Respiratory Respiratory exam: Present: CTAB. Absent: accessory muscle use, rales, rhonchi, wheezes Additional comments: Normal WOB - Cardiovascular Cardiovascular exam: Present: RRR, +S1, +S2. Absent: diastolic murmur, gallop, rubs, systolic murmur Additional comments: No BLE edema - GI/Abdominal GI/Abdominal exam: Present: normal bowel sounds, soft. Absent: hepatomegaly, mass, splenomegaly, tenderness Additional comments: Mild distension, positive fluid wave - Psychiatric Psychiatric exam: Present: normal affect, normal mood. Absent: agitated, anxious, depressed - Skin Skin exam: Present: dry, intact, warm. Absent: cyanosis, rash Internal Medicine: Result - Labs CBC & Chem 7: 02/13/18 05:32 02/13/18 05:32 - ABG Interpretation ABG results: PT/INR, D-dimer PT 13.6 Seconds (9.4-12.1) H 02/10/18 00:25 - VTE Documentation of Mechanical Device: Intermittent pneumatic compression device Consult Discharge Plan - Plan Instructions: Acute Respiratory Distress Syndrome (DC) Referrals: Tiff Villa MD [Partnered Physician] - (Follow up on your normal HD days) Oseas Graham MD [Primary Care Provider] - 02/21/18 10:15 am Prescriptions: Lactulose 10 gm PO BID PRN #1000 ml PRN Reason: coonstipation Midodrine HCl 2.5 mg PO QMWF #15 tablet
--- NOTE | 2018-02-14 10:01 | Physician Discharge Referral ---
Home Health/Hosp Referral Info Transfer to: Home Health Provider in Charge Post Discharge: PCP - Diagnosis (1) Generalized weakness Priority: Primary Status: Acute (2) Liver cancer Priority: Secondary Status: Chronic (3) ESRD (end stage renal disease) on dialysis Priority: Secondary Status: Chronic (4) Hyponatremia Priority: Secondary Status: Acute (5) Pancytopenia Priority: Secondary Status: Chronic (6) Hepatic encephalopathy Priority: Secondary Status: Acute (7) DVT prophylaxis Priority: Secondary Status: Acute - Respiratory Orders Smoking Cessation: Smoking cessation has been advised. For more information, call the [place] Tobacco Quit Line at 9-286-NSIR-NOW. - Diet/Nutrition Diet/Nutrition Orders: Renal - Activity Activity: List: Per physical therapy - Services Needed Following services are medically necessary services: Nursing, Home Health Aide, Physical Therapy, Occupational Therapy - Transfer Medications Prescriptions: Lactulose 10 gm PO BID PRN #1000 ml PRN Reason: coonstipation Midodrine HCl 2.5 mg PO QMWF #15 tablet Home Medications: Buspirone HCl [Buspar] 5 mg PO BID 02/10/18 [History] Calcium Acetate [Phos-LO] 667 mg PO 1-3XD 02/10/18 [History] Cholecalciferol (D-3) [Vitamin D] 1,000 unit PO DAILY 02/10/18 [History] Epoetin Kevon [Epogen] 30,000 unit IJ QWEEK 02/10/18 [History] Folic Acid/Vit Bcomp,C [Dialyvite Tablet] 1 each PO DAILY 02/10/18 [History] Furosemide [Lasix] 20 mg PO DAILY 02/10/18 [History] Gabapentin [Neurontin] 300 mg PO DAILY 02/10/18 [History] Omeprazole [PriLOSEC] 40 mg PO DAILY 02/10/18 [History] Oxycodone HCl 5 mg PO Q6HR PRN 02/10/18 [History] Simvastatin [Zocor] 10 mg PO HS 02/10/18 [History] Tamsulosin [Flomax] 0.4 mg PO BID 02/10/18 [History] Magnesium Oxide [Magnesium] 250 mg PO 1-2XD 02/12/18 [History] Carvedilol [Coreg] 3.125 mg PO Q12HR #0 02/13/18 [Rx] Lactulose 10 gm PO BID PRN #1000 ml 02/13/18 [Rx] Midodrine HCl 2.5 mg PO QMWF #15 tablet 02/13/18 [Rx] Allergies/Adverse Reactions: 3 Allergy/AdvReac Type Severity Reaction Status Date / Time linezolid [From Zyvox] Allergy Weakness Verified 12/14/17 11:05 trimethoprim [From Bactrim] Allergy Weakness Verified 12/14/17 11:05 Certification: Further, I certify that my clinical findings support that this patient is homebound (i.e. absences from home require considerable and taxing effort and are for medical reasons or yarsanism services or infrequently or short duration when for other reasons) because: generalized weakness, ESRD, and liver cancer/ liver disease. Homebound Reason: Patient requires assistance of a person or device to safely leave home, Leaving home requires considerable and taxing effort due to condition Attestation: My signature below is to certify that this patient is under my care and that I, or nurse practitioner, or a physician's certified ophthalmic assistant working with me, has a face-to -face encounter with this patient.
--- NOTE | 2018-02-14 15:29 | Electrocardiograph Report ---
[address] [address] Test Date: 2018-02-10 Pat Name: Serafin Daly Department: 112 Room: [facility] Gender: M Linesperson: : 1940 Requested By: Jo Prince Order Number: [id number] Reading MD: Poncho López Measurements Intervals [place] Rate: 91 P: IN: 0 QRS: -13 QRSD: 91 T: 61 QT: 346 QTc: 394 Interpretive Statements BASELINE ARTIFACT SINUS RHYTHM LOW QRS VOLTAGE IN PRECORDIAL LEADS NONSPECIFIC T-WAVE ABNORMALITY Electronically Signed On 02-14-2018 15:27:33 EDT by Poncho López
== END 2018-02-14 11:33 | disposition home or self-care (01) | DRG 291 ==
LOC: EMEROO 23:28 → 2ANU 23:28 → SUATTDRO 02-10 04:48 → 2ANU 02-10 05:27
PROVIDERS: ADMIT Internal Medicine; ATTEND Family Medicine